=== PATIENT | male | born 1950 | race Caucasian/White ===

== ENCOUNTER → 2016-06-06 | Outpatient (CLI) | payer MEDICARE ==
[~2016-06-06] MED LIST: CARV25TA PO; DIGO0.1262 PO; FURO20TA PO; LOS50T PO; NITR0.2D12 TD; SPIR25TA89 PO
[2016-06-06 10:23] LABS: Basophils # (auto) 0 uL; Basophils % (auto) 0.4 % (0.0-2.0); Eosinophils # (auto) 0.1 uL; Eosinophils % (auto) 1.9 % (0.0-7.0); Hematocrit 44.2 % (41.0-53.0); Hemoglobin 14.5 g/dL (13.5-17.5); Lymphocytes # (auto) 1.5 uL; Lymphocytes % (auto) 28.6 % (10.0-50.0); Mean Corpuscular Hemoglobin 30.1 pg (28.0-32.0); Mean Corpuscular Hgb Conc. 32.8 g/dL (32.0-36.0); Mean Corpuscular Volume 91.9 fL (80.0-100.0); Mean Platelet Volume 8.8 fL (7.4-10.4); Monocytes # (auto) 0.5 uL; Monocytes % (auto) 8.6 % (0.0-12.0); Neutrophils # (auto) 3.3 uL; Neutrophils % (auto) 60.5 % (37.0-80.0); Platelet Count (auto) 194 10^3/uL (140-450); White Blood Cell 5.4 10^3/uL (4.4-10.8)
[2016-06-06 10:33] LABS: Urine Bilirubin Negative (Negative); Urine Blood Negative /uL (Negative); Urine Color Yellow (Yellow); Urine Glucose Normal (Normal); Urine Ketone Negative (Negative); Urine Nitrite Negative (Negative); Urine RBC <1 /hpf (0 - 3); Urine Urobilinogen Normal (Negative); Urine pH 5.5 (5.0-8.0)
[2016-06-06 10:46] LABS: Albumin 3.7 g/dL (3.4-5.0); BUN/Creatinine Ratio 16.3; Bilirubin, Total 0.6 mg/dL (0.2-1.0); Calcium 8.4 mg/dL (8.5-10.1); Potassium 4.2 mmol/L (3.5-5.1); Total Protein 7.2 g/dL (6.4-8.2)
== END | disposition home or self-care (01) ==
LOC: LAB 10:00
DX: I10 Essential (primary) hypertension (principal); E55.9 Vitamin D deficiency, unspecified
CPT/HCPCS: 36415; 80053; 80061; 81001; 82306; 84443; 85025

== ENCOUNTER → 2016-10-13 | Outpatient (CLI) | payer MEDICARE ==
[2016-10-13 11:07] LABS: Urine RBC None Seen /hpf (0 - 3)
[2016-10-13 11:13] LABS: Basophils # (auto) 0 uL; Basophils % (auto) 0.5 % (0.0-2.0); Eosinophils # (auto) 0.1 uL; Eosinophils % (auto) 0.9 % (0.0-7.0); Hematocrit 44.9 % (41.0-53.0); Hemoglobin 15.1 g/dL (13.5-17.5); Lymphocytes # (auto) 1.2 uL; Lymphocytes % (auto) 18.5 % (10.0-50.0); Mean Corpuscular Hemoglobin 31.2 pg (28.0-32.0); Mean Corpuscular Hgb Conc. 33.5 g/dL (32.0-36.0); Mean Corpuscular Volume 92.9 fL (80.0-100.0); Mean Platelet Volume 8.2 fL (7.4-10.4); Monocytes # (auto) 0.3 uL; Monocytes % (auto) 5.2 % (0.0-12.0); Neutrophils # (auto) 4.7 uL; Neutrophils % (auto) 74.9 % (37.0-80.0); Platelet Count (auto) 237 10^3/uL (140-450); Red Cell Distribution Width 13.9 % (11.6-16.0); White Blood Cell 6.3 10^3/uL (4.4-10.8)
[2016-10-13 11:42] LABS: Albumin 3.9 g/dL (3.4-5.0); BUN/Creatinine Ratio 13.9; Bilirubin, Total 0.6 mg/dL (0.2-1.0); Calcium 8.6 mg/dL (8.5-10.1); Potassium 4.2 mmol/L (3.5-5.1); Total Protein 7.9 g/dL (6.4-8.2)
[2016-10-13 12:02] LABS: Urine Bilirubin Negative (Negative); Urine Blood Negative /uL (Negative); Urine Color Yellow (Yellow); Urine Glucose Normal (Normal); Urine Ketone Negative (Negative); Urine Nitrite Negative (Negative); Urine Urobilinogen Normal (Negative); Urine pH 5.5 (5.0-8.0)
== END | disposition home or self-care (01) ==
LOC: LAB 10:49
DX: I10 Essential (primary) hypertension (principal); E55.9 Vitamin D deficiency, unspecified; Z12.5 Encounter for screening for malignant neoplasm of prostate; Z12.11 Encounter for screening for malignant neoplasm of colon
CPT/HCPCS: 36415; 80053; 80061; 81001; 82270; 82306; 84153; 84443; 85025

== ENCOUNTER → 2016-12-27 | Outpatient (CLI) | payer MEDICARE | END | disposition home or self-care (01) | LOC: XYW 11:03 | PROVIDERS: ATTEND Internal Medicine Cardiovascular Disease | DX: I42.9 Cardiomyopathy, unspecified (principal); I25.5 Ischemic cardiomyopathy; I08.0 Rheumatic disorders of both mitral and aortic valves | CPT/HCPCS: 93306 ==

== ENCOUNTER → 2017-02-09 | Outpatient (CLI) | payer MEDICARE ==
[2017-02-09 09:26] LABS: Urine RBC None Seen /hpf (0 - 3)
[2017-02-09 10:07] LABS: Basophils # (auto) 0 uL; Basophils % (auto) 0.5 % (0.0-2.0); Eosinophils # (auto) 0.1 uL; Eosinophils % (auto) 1.1 % (0.0-7.0); Hematocrit 44.5 % (41.0-53.0); Hemoglobin 14.9 g/dL (13.5-17.5); Lymphocytes # (auto) 1.2 uL; Lymphocytes % (auto) 22.8 % (10.0-50.0); Mean Corpuscular Hemoglobin 31.7 pg (28.0-32.0); Mean Corpuscular Hgb Conc. 33.6 g/dL (32.0-36.0); Mean Corpuscular Volume 94.6 fL (80.0-100.0); Mean Platelet Volume 8.7 fL (6.9-10.8); Monocytes # (auto) 0.5 uL; Monocytes % (auto) 8.6 % (0.0-12.0); Neutrophils # (auto) 3.5 uL; Platelet Count (auto) 179 10^3/uL (140-450); Red Cell Distribution Width 14.2 % (11.8-14.3); White Blood Cell 5.3 10^3/uL (4.4-10.8)
[2017-02-09 10:09] LABS: Urine Bilirubin Negative (Negative); Urine Blood Negative /uL (Negative); Urine Color Yellow (Yellow); Urine Glucose Normal (Normal); Urine Ketone Negative (Negative); Urine Nitrite Negative (Negative); Urine Urobilinogen Normal (Negative); Urine pH 5.5 (5.0-8.0)
[2017-02-09 10:24] LABS: BUN/Creatinine Ratio 15.8; Bilirubin, Total 0.8 mg/dL (0.2-1.0); Calcium 8.8 mg/dL (8.5-10.1)
== END | disposition home or self-care (01) ==
LOC: LAB 09:22
PROVIDERS: ATTEND Family Medicine
DX: I11.0 Hypertensive heart disease with heart failure (principal); I50.22 Chronic systolic (congestive) heart failure; I25.10 Atherosclerotic heart disease of native coronary artery without angina pectoris
CPT/HCPCS: 36415; 80053; 80061; 81001; 84443; 85025

== ENCOUNTER → 2018-03-12 | Outpatient (CLI) | payer MEDICARE ==
[~2018-03-12] MED LIST changes: +SPIR25TA8 PO; -SPIR25TA89 PO
[2018-03-12 10:48] LABS: Urine WBC None Seen /hpf (0 - 3)
[2018-03-12 11:27] LABS: Urine Bacteria NONE SEEN /hpf (None Seen); Urine Blood Negative /uL (Negative)
[2018-03-12 11:49] LABS: Basophils # (auto) 0 uL; Basophils % (auto) 0.5 % (0.0-2.0); Eosinophils # (auto) 0.1 uL; Hematocrit 44.8 % (41.0-53.0); Hemoglobin 15.8 g/dL (13.5-17.5); Lymphocytes # (auto) 1.3 uL; Lymphocytes % (auto) 19.7 % (10.0-50.0); Mean Corpuscular Hemoglobin 33.2 pg (28.0-32.0); Mean Corpuscular Hgb Conc. 35.3 g/dL (32.0-36.0); Monocytes # (auto) 0.5 uL; Monocytes % (auto) 8.3 % (0.0-12.0); Neutrophils # (auto) 4.4 uL; Neutrophils % (auto) 69.5 % (37.0-80.0); Nucleated Red Blood Cells % 0.1 %; Platelet Count (auto) 175 10^3/uL (140-450); Red Blood Cells 4.77 10^6/uL (4.5-5.90); Red Cell Distribution Width 14.2 % (11.8-14.3); White Blood Cell 6.4 10^3/uL (4.4-10.8)
[2018-03-12 11:59] LABS: Albumin 3.9 g/dL (3.4-5.0); Potassium 5.2 mmol/L (3.5-5.1)
[2018-03-12 12:05] LABS: BUN/Creatinine Ratio 15.9; Bilirubin, Total 0.8 mg/dL (0.2-1.0); Total Protein 7.9 g/dL (6.4-8.2)
== END | disposition home or self-care (01) ==
LOC: LAB 09:59
DX: I10 Essential (primary) hypertension (principal); I25.5 Ischemic cardiomyopathy; I25.2 Old myocardial infarction; E78.2 Mixed hyperlipidemia; Z79.899 Other long term (current) drug therapy
CPT/HCPCS: 36415; 80053; 80061; 81001; 82306; 84153; 85025

== ENCOUNTER → 2018-07-16 | Outpatient (CLI) | payer MEDICARE ==
[2018-07-16 11:05] LABS: Basophils # (auto) 0 uL; Basophils % (auto) 0.3 % (0.0-2.0); Eosinophils # (auto) 0.1 uL; Lymphocytes # (auto) 1.1 uL; Lymphocytes % (auto) 18.9 % (10.0-50.0); Mean Corpuscular Hemoglobin 31.3 pg (28.0-32.0); Mean Corpuscular Hgb Conc. 33.3 g/dL (32.0-36.0); Monocytes # (auto) 0.5 uL; Monocytes % (auto) 7.8 % (0.0-12.0); Neutrophils # (auto) 4.2 uL; Nucleated Red Blood Cells % 0.1 %; Platelet Count (auto) 167 10^3/uL (140-450); Red Blood Cells 4.79 10^6/uL (4.5-5.90); White Blood Cell 5.8 10^3/uL (4.4-10.8)
[2018-07-16 11:24] LABS: Albumin 3.6 g/dL (3.4-5.0); Calcium 8.6 mg/dL (8.5-10.1); Potassium 4.5 mmol/L (3.5-5.1)
[2018-07-16 11:30] LABS: BUN/Creatinine Ratio 12.1; Bilirubin, Total 0.7 mg/dL (0.2-1.0); Total Protein 7.1 g/dL (6.4-8.2)
== END | disposition home or self-care (01) ==
LOC: LAB 10:23
PROVIDERS: ATTEND Nurse Practitioner
DX: E78.5 Hyperlipidemia, unspecified (principal)
CPT/HCPCS: 36415; 80053; 80061; 85025

== ENCOUNTER → 2018-11-01 | Outpatient (CLI) | payer MEDICARE ==
[2018-11-01 08:56] LABS: Basophils # (auto) 0 uL; Basophils % (auto) 0.5 % (0.0-2.0); Eosinophils # (auto) 0.1 uL; Eosinophils % (auto) 1.7 % (0.0-7.0); Hematocrit 44.8 % (41.0-53.0); Hemoglobin 15.3 g/dL (13.5-17.5); Lymphocytes # (auto) 1.5 uL; Lymphocytes % (auto) 22.6 % (10.0-50.0); Mean Corpuscular Hgb Conc. 34.2 g/dL (32.0-36.0); Mean Corpuscular Volume 93.5 fL (80.0-100.0); Monocytes # (auto) 0.6 uL; Monocytes % (auto) 8.5 % (0.0-12.0); Neutrophils # (auto) 4.3 uL; Neutrophils % (auto) 66.7 % (37.0-80.0); Nucleated Red Blood Cells % 0.1 %; Platelet Count (auto) 172 10^3/uL (140-450); Red Blood Cells 4.79 10^6/uL (4.5-5.90); Red Cell Distribution Width 13.8 % (11.8-14.3); White Blood Cell 6.5 10^3/uL (4.4-10.8)
[2018-11-01 08:57] LABS: Albumin 3.6 g/dL (3.4-5.0); Calcium 8.7 mg/dL (8.5-10.1); Potassium 4.5 mmol/L (3.5-5.1)
[2018-11-01 08:59] LABS: BUN/Creatinine Ratio 15.5; Bilirubin, Total 0.6 mg/dL (0.2-1.0); Total Protein 7.1 g/dL (6.4-8.2); Urine Bacteria NONE SEEN /hpf (None Seen); Urine Blood Negative /uL (Negative); Urine Specific Gravity 1.022 (1.001-1.035); Urine WBC 1 /hpf (0 - 3)
== END | disposition home or self-care (01) ==
LOC: LAB 08:05
PROVIDERS: ATTEND Nurse Practitioner
DX: R73.9 Hyperglycemia, unspecified (principal)
CPT/HCPCS: 36415; 80053; 81001; 82043; 83036; 85025

== ENCOUNTER → 2019-01-24 | Outpatient (CLI) | payer MEDICARE ==
[~2019-01-24] MED LIST changes: +FURO1TAB33 PO; -FURO20TA PO; -NITR0.2D12 TD; +NITR0.2D3 TD
[2019-01-24 08:51] LABS: Urine WBC None Seen /hpf (0 - 3)
[2019-01-24 08:59] LABS: Basophils # (auto) 0 uL; Basophils % (auto) 0.4 % (0.0-2.0); Eosinophils # (auto) 0 uL; Eosinophils % (auto) 0.9 % (0.0-7.0); Hematocrit 42.7 % (41.0-53.0); Hemoglobin 14.5 g/dL (13.5-17.5); Lymphocytes % (auto) 22.6 % (10.0-50.0); Mean Corpuscular Hemoglobin 32.1 pg (28.0-32.0); Mean Corpuscular Volume 94.3 fL (80.0-100.0); Monocytes # (auto) 0.3 uL; Monocytes % (auto) 8.1 % (0.0-12.0); Neutrophils # (auto) 2.9 uL; Platelet Count (auto) 164 10^3/uL (140-450); Red Blood Cells 4.53 10^6/uL (4.5-5.90); Red Cell Distribution Width 14.1 % (11.8-14.3); White Blood Cell 4.2 10^3/uL (4.4-10.8)
[2019-01-24 09:01] LABS: Urine Bacteria NONE SEEN /hpf (None Seen); Urine Blood Negative /uL (Negative)
[2019-01-24 10:23] LABS: Albumin 3.8 g/dL (3.4-5.0); Bilirubin, Total 0.8 mg/dL (0.2-1.0); Calcium 8.6 mg/dL (8.5-10.1); Potassium 4.5 mmol/L (3.5-5.1); Total Protein 7.1 g/dL (6.4-8.2)
== END | disposition home or self-care (01) ==
LOC: LAB 08:23
PROVIDERS: ATTEND Nurse Practitioner
DX: E78.5 Hyperlipidemia, unspecified (principal); E11.9 Type 2 diabetes mellitus without complications; I11.0 Hypertensive heart disease with heart failure; I50.9 Heart failure, unspecified
CPT/HCPCS: 36415; 80053; 80061; 81001; 82043; 83036; 85025

== ENCOUNTER → 2019-05-10 | Outpatient (CLI) | payer MEDICARE ==
[2019-05-10 11:18] LABS: Albumin 3.7 g/dL (3.4-5.0); Calcium 8.8 mg/dL (8.5-10.1); Potassium 4.9 mmol/L (3.5-5.1)
[2019-05-10 11:22] LABS: BUN/Creatinine Ratio 15.4; Bilirubin, Total 0.6 mg/dL (0.2-1.0); Total Protein 7.2 g/dL (6.4-8.2)
== END | disposition home or self-care (01) ==
LOC: LAB 10:30
PROVIDERS: ATTEND Nurse Practitioner
DX: E11.22 Type 2 diabetes mellitus with diabetic chronic kidney disease (principal); N18.9 Chronic kidney disease, unspecified
CPT/HCPCS: 36415; 80053; 83036

== ENCOUNTER → 2019-07-29 | Outpatient (CLI) | payer MEDICARE ==
[2019-07-29 12:39] LABS: Urine WBC None Seen /hpf (0 - 3)
[2019-07-29 12:52] LABS: Basophils # (auto) 0 10 ^3/uL (0-0.2); Basophils % (auto) 0.4 % (0.0-2.0); Eosinophils # (auto) 0.1 10 ^3/uL (0-0.8); Eosinophils % (auto) 1.3 % (0.0-7.0); Hematocrit 45.8 % (41.0-53.0); Hemoglobin 15.5 g/dL (13.5-17.5); Lymphocytes % (auto) 23.8 % (10.0-50.0); Mean Corpuscular Hemoglobin 32.5 pg (28.0-32.0); Mean Corpuscular Hgb Conc. 33.9 g/dL (32.0-36.0); Mean Corpuscular Volume 95.8 fL (80.0-100.0); Monocytes # (auto) 0.3 10 ^3/uL (0-1.3); Monocytes % (auto) 8.2 % (0.0-12.0); Neutrophils # (auto) 2.7 10 ^3/uL (1.6-8.6); Neutrophils % (auto) 66.3 % (37.0-80.0); Platelet Count (auto) 154 10^3/uL (140-450); Red Blood Cells 4.78 10^6/uL (4.5-5.90); Red Cell Distribution Width 13.9 % (11.8-14.3)
[2019-07-29 12:58] LABS: Urine Bacteria NONE SEEN /hpf (None Seen); Urine Blood Negative /uL (Negative); Urine Specific Gravity 1.017 (1.001-1.035)
[2019-07-29 13:20] LABS: Albumin 3.7 g/dL (3.4-5.0); Calcium 9.2 mg/dL (8.5-10.1); Potassium 4.6 mmol/L (3.5-5.1)
[2019-07-29 13:25] LABS: BUN/Creatinine Ratio 16.9; Bilirubin, Total 0.8 mg/dL (0.2-1.0); Total Protein 7.4 g/dL (6.4-8.2)
== END | disposition home or self-care (01) ==
LOC: LAB 10:42
PROVIDERS: ATTEND Nurse Practitioner
DX: E11.9 Type 2 diabetes mellitus without complications (principal); E78.5 Hyperlipidemia, unspecified
CPT/HCPCS: 36415; 80053; 80061; 81001; 82043; 83036; 84443; 85025

== ENCOUNTER 2019-08-09 13:54 | Inpatient (IN) | payer MEDICARE ==
[~2019-08-09] VITALS: Ht 172.7 cm; Wt 71.6 kg
[2019-08-09] MEDS ORDERED: ASPirin 81 mg TAB PO ONE (14:15)
[2019-08-09] MEDS ORDERED: NITROGLYCERIN 0.2MG/HR TOPICAL PATCH TD ONE ×2 (14:15→16:45)
[2019-08-09 14:30] LABS: Basophils # (auto) 0 10 ^3/uL (0-0.2); Basophils % (auto) 0.3 % (0.0-2.0); Eosinophils # (auto) 0 10 ^3/uL (0-0.8); Eosinophils % (auto) 0.5 % (0.0-7.0); Hematocrit 47.2 % (41.0-53.0); Lymphocytes % (auto) 19.5 % (10.0-50.0); Mean Corpuscular Hemoglobin 32.4 pg (28.0-32.0); Mean Corpuscular Hgb Conc. 33.9 g/dL (32.0-36.0); Mean Corpuscular Volume 95.5 fL (80.0-100.0); Monocytes # (auto) 0.4 10 ^3/uL (0-1.3); Monocytes % (auto) 7.8 % (0.0-12.0); Neutrophils # (auto) 3.7 10 ^3/uL (1.6-8.6); Neutrophils % (auto) 71.9 % (37.0-80.0); Platelet Count (auto) 160 10^3/uL (140-450); Red Blood Cells 4.94 10^6/uL (4.5-5.90); Red Cell Distribution Width 14.1 % (11.8-14.3); White Blood Cell 5.2 10^3/uL (4.4-10.8)
[2019-08-09 14:49] LABS: Alanine Aminotransferase 62 U/L (16-61); Albumin 3.6 g/dL (3.4-5.0); Anion Gap 4 (5-15); Aspartate Aminotransferase 26 U/L (15-37); BUN/Creatinine Ratio 16.7; Blood Urea Nitrogen 23 mg/dL (7-18); Calcium 8.8 mg/dL (8.5-10.1); Carbon Dioxide 28 mmol/L (21-32); Chloride 107 mmol/L (98-107); GFR African American 65 mL/min; GFR Non-African American 54 mL/min; Glucose 125 mg/dL (74-106); Magnesium 2.2 mg/dL (1.6-2.6); Sodium 139 mmol/L (136-145)
[2019-08-09 14:54] LABS: Alkaline Phosphatase 80 U/L (45-117); Bilirubin, Total 0.6 mg/dL (0.2-1.0); Total Protein 7.4 g/dL (6.4-8.2)
[2019-08-09 14:56] LABS: INR 1.06 (0.9-1.15); Partial Thromboplastin Time 28.2 sec (23.64-32.05)
[2019-08-09] MEDS ORDERED: SODIUM CHLORIDE 0.9% 1,000 ML IV SCH (16:27)
[2019-08-09] MEDS ORDERED: TEMAZEPAM 15 MG CAP PO PRN (16:30)
[2019-08-09] MEDS ORDERED: traMADol HCL 50 MG TAB PO PRN (16:30)
[2019-08-09] MEDS ORDERED: MORPHINE SULF INJ 2 MG/ML SYRINGE 1ML IV PRN (16:30)
[2019-08-09] MEDS ORDERED: ACETAMINOPHEN 500 MG TAB PO PRN ×2 (16:30)
[2019-08-09] MEDS ORDERED: LACTULOSE 20Gm/30ML SOLN PO PRN (16:30)
[2019-08-09] MEDS ORDERED: NITROGLYCERIN 0.4 MG SL TAB SL PRN (16:30)
[2019-08-09 18:14] VITALS: BP 155/72
[2019-08-09 22:00] VITALS: BP 151/65
[2019-08-09] MEDS ORDERED: CARVEDILOL 12.5 MG TAB PO SCH (22:00)
[2019-08-09] MEDS ORDERED: SPIRONOLACTONE 25 MG TAB PO SCH (22:00)
[2019-08-09] MEDS ORDERED: LOSARTAN POTASSIUM 50 MG TAB PO SCH (22:00)
[2019-08-09] MEDS ORDERED: ATORVASTATIN 20 MG TAB PO SCH (22:00)
[2019-08-09] MEDS ORDERED: METOPROLOL TARTRATE 25 MG TAB PO SCH (22:00)
[2019-08-09] MEDS: SPIRONOLACTONE 25 MG TAB PO SCH (23:10)
[2019-08-09] MEDS: CARVEDILOL 12.5 MG TAB PO SCH (23:10)
[2019-08-09] MEDS: ATORVASTATIN 20 MG TAB PO SCH (23:11)
[2019-08-09] MEDS: LOSARTAN POTASSIUM 50 MG TAB PO SCH (23:11)
[2019-08-10 05:06] VITALS: BP 122/56
[2019-08-10 09:00] VITALS: BP 127/57
[2019-08-10] MEDS: CARVEDILOL 12.5 MG TAB PO SCH ×2 (10:00→21:52)
[2019-08-10] MEDS: LOSARTAN POTASSIUM 50 MG TAB PO SCH ×2 (10:00→21:52)
[2019-08-10] MEDS: DIGOXIN 0.125 MG TAB PO SCH (10:34)
[2019-08-10] MEDS: SPIRONOLACTONE 25 MG TAB PO SCH ×2 (10:36→21:51)
[2019-08-10] MEDS: NITROGLYCERIN 0.2MG/HR TOPICAL PATCH TD SCH (10:38)
[2019-08-10] MEDS ORDERED: CLOPIDOGREL BISULFATE 75 MG TAB PO ONE (12:00)
[2019-08-10] MEDS: ASPirin 81 mg TAB PO SCH (12:23)
[2019-08-10 12:49] VITALS: BP 156/76
[2019-08-10 13:18] LABS: Cholesterol 111 mg/dL (< 200); Triglycerides 115 mg/dL (< 150)
[2019-08-10 13:21] LABS: HDL Cholesterol 42 mg/dL (40-59); LDL Cholesterol 58 mg/dL (< 100)
[2019-08-10 16:47] VITALS: BP 104/54
[2019-08-10 21:45] VITALS: BP 114/70
[2019-08-10] MEDS: ATORVASTATIN 20 MG TAB PO SCH (21:52)
[2019-08-11 05:06] VITALS: BP 116/59
[2019-08-11 09:25] VITALS: BP 127/66
[2019-08-11] MEDS: NITROGLYCERIN 0.2MG/HR TOPICAL PATCH TD SCH (09:55)
[2019-08-11] MEDS: SPIRONOLACTONE 25 MG TAB PO SCH ×2 (09:56→21:55)
[2019-08-11] MEDS: ASPirin 81 mg TAB PO SCH (09:56)
[2019-08-11] MEDS: CLOPIDOGREL BISULFATE 75 MG TAB PO SCH (09:56)
[2019-08-11] MEDS: CARVEDILOL 12.5 MG TAB PO SCH ×2 (09:57→21:56)
[2019-08-11] MEDS: DIGOXIN 0.125 MG TAB PO SCH (09:57)
[2019-08-11] MEDS: LOSARTAN POTASSIUM 50 MG TAB PO SCH ×2 (09:57→21:56)
[2019-08-11 13:36] VITALS: BP 122/64
[2019-08-11 16:39] VITALS: BP 113/55
[2019-08-11] MEDS: ATORVASTATIN 20 MG TAB PO SCH (21:56)
[2019-08-11 22:00] VITALS: BP 103/62
[2019-08-12] VITALS (7 sets, daily range): BP systolic 103–138; BP diastolic 55–65
[2019-08-12] MEDS ORDERED: ADENOSINE 61 MG in GIVE UN-DILUTED 0 ML IV STA (08:23)
[2019-08-12] MEDS: ASPirin 81 mg TAB PO SCH (13:45)
[2019-08-12] MEDS: SPIRONOLACTONE 25 MG TAB PO SCH ×2 (13:45→22:00)
[2019-08-12] MEDS: CLOPIDOGREL BISULFATE 75 MG TAB PO SCH (13:45)
[2019-08-12] MEDS: CARVEDILOL 12.5 MG TAB PO SCH ×2 (13:46→22:00)
[2019-08-12] MEDS: LOSARTAN POTASSIUM 50 MG TAB PO SCH ×2 (13:47→22:28)
[2019-08-12] MEDS: DIGOXIN 0.125 MG TAB PO SCH (13:48)
[2019-08-12] MEDS: NITROGLYCERIN 0.2MG/HR TOPICAL PATCH TD SCH (13:48)
[2019-08-12] MEDS: ATORVASTATIN 20 MG TAB PO SCH (22:26)
[2019-08-13 05:00] VITALS: BP 111/42
[2019-08-13 08:00] VITALS: BP 123/67
[2019-08-13 09:00] VITALS: BP 123/67
[2019-08-13] MEDS: ASPirin 81 mg TAB PO SCH (09:56)
[2019-08-13] MEDS: LOSARTAN POTASSIUM 50 MG TAB PO SCH (09:56)
[2019-08-13] MEDS: CARVEDILOL 12.5 MG TAB PO SCH (09:57)
[2019-08-13] MEDS: CLOPIDOGREL BISULFATE 75 MG TAB PO SCH (09:57)
[2019-08-13] MEDS: NITROGLYCERIN 0.2MG/HR TOPICAL PATCH TD SCH (09:58)
[2019-08-13 11:35] VITALS: BP 123/67
[2019-08-13 12:58] VITALS: BP 117/66
== END 2019-08-13 14:19 | disposition home or self-care (01) | DRG 313 ==
LOC: ER 13:54 → TELE 13:55 → ER 17:46 → TELE-CENTR 17:56
PROVIDERS: ADMIT Internal Medicine; ATTEND Family Medicine
DX: R07.89 Other chest pain (principal); I50.23 Acute on chronic systolic (congestive) heart failure; I11.0 Hypertensive heart disease with heart failure; I20.9 Angina pectoris, unspecified; Z95.5 Presence of coronary angioplasty implant and graft; Z88.1 Allergy status to other antibiotic agents; Z88.8 Allergy status to other drugs, medicaments and biological substances; Z82.49 Family history of ischemic heart disease and other diseases of the circulatory system; Z83.3 Family history of diabetes mellitus; N18.3 Chronic kidney disease, stage 3 (moderate)
CPT/HCPCS: 36415; 71045; 78452; 80053; 80061; 82550; 83735; 83880; 84443; 84484; 85025; 85610; 85730; 93005; 93017; 93306; G0378; J0153

== ENCOUNTER → 2019-12-25 | Outpatient (CLI) | payer MEDICARE ==
[~2019-12-25] MED LIST changes: +AMLO5TAB15 PO; +ASPI81CH43 PO; +ATOR20TA50 PO; +CAR125T PO; +CLOP75TA41 PO; +SERT-274 PO; +TRAZ50TA2 PO
== END | disposition home or self-care (01) ==
LOC: XYW 07:33
PROVIDERS: ATTEND Internal Medicine
DX: I08.2 Rheumatic disorders of both aortic and tricuspid valves (principal); I10 Essential (primary) hypertension
CPT/HCPCS: 36415; 80162; 93306

== ENCOUNTER → 2020-02-07 | Outpatient (CLI) | payer MEDICARE ==
[2020-02-07 09:20] LABS: Basophils # (auto) 0 10 ^3/uL (0-0.2); Basophils % (auto) 0.6 % (0.0-2.0); Eosinophils # (auto) 0.1 10 ^3/uL (0-0.8); Eosinophils % (auto) 1.4 % (0.0-7.0); Hematocrit 45.2 % (41.0-53.0); Hemoglobin 15.3 g/dL (13.5-17.5); Lymphocytes # (auto) 1.1 10 ^3/uL (0.4-5.4); Lymphocytes % (auto) 23.2 % (10.0-50.0); Mean Corpuscular Hemoglobin 32.5 pg (28.0-32.0); Mean Corpuscular Hgb Conc. 33.7 g/dL (32.0-36.0); Mean Corpuscular Volume 96.4 fL (80.0-100.0); Monocytes # (auto) 0.4 10 ^3/uL (0-1.3); Monocytes % (auto) 8.3 % (0.0-12.0); Neutrophils # (auto) 3.1 10 ^3/uL (1.6-8.6); Neutrophils % (auto) 66.5 % (37.0-80.0); Nucleated Red Blood Cells % 0.1 %; Platelet Count (auto) 157 10^3/uL (140-450); Red Blood Cells 4.69 10^6/uL (4.5-5.90); Red Cell Distribution Width 13.7 % (11.8-14.3); White Blood Cell 4.6 10^3/uL (4.4-10.8)
[2020-02-07 09:27] LABS: Albumin 3.7 g/dL (3.4-5.0); Calcium 9.1 mg/dL (8.5-10.1); Potassium 4.8 mmol/L (3.5-5.1)
[2020-02-07 09:31] LABS: BUN/Creatinine Ratio 19.6; Bilirubin, Total 0.7 mg/dL (0.2-1.0); Total Protein 7.1 g/dL (6.4-8.2)
[2020-02-07 09:42] LABS: INR 1.05 (0.9-1.15); Partial Thromboplastin Time 27.1 sec (23.0-31.2)
== END | disposition home or self-care (01) ==
LOC: LAB 08:52
PROVIDERS: ATTEND Internal Medicine
DX: Z01.812 Encounter for preprocedural laboratory examination (principal); I12.9 Hypertensive chronic kidney disease with stage 1 through stage 4 chronic kidney disease, or unspecified chronic kidney disease; E11.22 Type 2 diabetes mellitus with diabetic chronic kidney disease; N18.9 Chronic kidney disease, unspecified
CPT/HCPCS: 36415; 80053; 85025; 85610; 85730

== ENCOUNTER 2020-02-12 07:00 | Day surgery (SDC) | payer MEDICARE ==
[~2020-02-12] VITALS: Ht 175.3 cm; Wt 68.5 kg
[~2020-02-12 07:00] MED LIST changes: -CARV25TA PO; -FURO1TAB33 PO; -NITR0.2D3 TD
[2020-02-12] MEDS ORDERED: IOHEXOL 350 MG/ML 100ML IJ ONE (07:51)
[2020-02-12] MEDS ORDERED: LIDOCAINE 2%HCL (LOCAL ANESTH.) INJ 20ML MDV ONE (07:51)
[2020-02-12] MEDS ORDERED: MIDAZOLAM HCL 1MG/1ML-2 ML VIAL ONE (09:13)
[2020-02-12] MEDS ORDERED: ANGIOMAX 250 MG VIAL IV ONE (09:13)
[2020-02-12] MEDS ORDERED: fentaNYL CITRATE 100 MCG/2 ML VL ONE (09:13)
[2020-02-12] MEDS ORDERED: SODIUM CHL 0.9% 0 ML ONE (09:13)
[2020-02-12] MEDS ORDERED: ONDANSETRON HCL 4 MG/2 ML VIAL IV PRN (10:30)
[2020-02-12] MEDS ORDERED: HYDROcodone-ACET 5/325MG TAB PO PRN (10:30)
[2020-02-12] MEDS ORDERED: ACETAMINOPHEN 500 MG TAB PO PRN (10:30)
== END 2020-02-12 12:48 | disposition home or self-care (01) ==
LOC: CATH 07:00
PROVIDERS: ATTEND Internal Medicine
DX: I25.10 Atherosclerotic heart disease of native coronary artery without angina pectoris (principal); I42.9 Cardiomyopathy, unspecified; I35.1 Nonrheumatic aortic (valve) insufficiency; E78.5 Hyperlipidemia, unspecified; I11.0 Hypertensive heart disease with heart failure; E78.00 Pure hypercholesterolemia, unspecified; Z20.828 Contact with and (suspected) exposure to other viral communicable diseases; Z95.5 Presence of coronary angioplasty implant and graft; Z79.82 Long term (current) use of aspirin; Z79.899 Other long term (current) drug therapy; Z98.890 Other specified postprocedural states; Z88.1 Allergy status to other antibiotic agents; Z88.8 Allergy status to other drugs, medicaments and biological substances
CPT/HCPCS: 93460; C1751; C1769; C1894; J1644; J2250; J3010; J7030; Q9967; U0003; 99152

== ENCOUNTER → 2020-02-17 | Outpatient (CLI) | payer MEDICARE ==
[2020-02-17 09:47] LABS: Basophils # (auto) 0 10 ^3/uL (0-0.2); Basophils % (auto) 0.5 % (0.0-2.0); Eosinophils # (auto) 0.1 10 ^3/uL (0-0.8); Eosinophils % (auto) 1.3 % (0.0-7.0); Hematocrit 47.5 % (41.0-53.0); Hemoglobin 15.9 g/dL (13.5-17.5); Lymphocytes # (auto) 1.3 10 ^3/uL (0.4-5.4); Lymphocytes % (auto) 18.8 % (10.0-50.0); Mean Corpuscular Hemoglobin 32.3 pg (28.0-32.0); Mean Corpuscular Hgb Conc. 33.4 g/dL (32.0-36.0); Mean Corpuscular Volume 96.7 fL (80.0-100.0); Monocytes # (auto) 0.5 10 ^3/uL (0-1.3); Monocytes % (auto) 8.1 % (0.0-12.0); Neutrophils # (auto) 4.8 10 ^3/uL (1.6-8.6); Neutrophils % (auto) 71.3 % (37.0-80.0); Nucleated Red Blood Cells % 0.7 %; Platelet Count (auto) 190 10^3/uL (140-450); Red Blood Cells 4.92 10^6/uL (4.5-5.90); Red Cell Distribution Width 13.7 % (11.8-14.3); White Blood Cell 6.7 10^3/uL (4.4-10.8)
[2020-02-17 09:49] LABS: Urine Bacteria NONE SEEN /hpf (None Seen); Urine Blood Negative /uL (Negative); Urine Specific Gravity 1.009 (1.001-1.035); Urine WBC <1 /hpf (0 - 3)
[2020-02-17 10:29] LABS: BUN/Creatinine Ratio 19.9; Bilirubin, Total 0.7 mg/dL (0.2-1.0); Calcium 9.5 mg/dL (8.5-10.1); Total Protein 8.1 g/dL (6.4-8.2)
== END | disposition home or self-care (01) ==
LOC: LAB 08:49
PROVIDERS: ATTEND Internal Medicine
DX: I48.91 Unspecified atrial fibrillation (principal); I25.10 Atherosclerotic heart disease of native coronary artery without angina pectoris; I10 Essential (primary) hypertension; Z00.00 Encounter for general adult medical examination without abnormal findings; Z79.899 Other long term (current) drug therapy
CPT/HCPCS: 36415; 80053; 80061; 81001; 82274; 82306; 82607; 83036; 84443; 85025

== ENCOUNTER → 2020-05-08 | Outpatient (CLI) | payer MEDICARE ==
[2020-05-08 15:44] LABS: Urine Bacteria NONE SEEN /hpf (None Seen); Urine Blood Negative /uL (Negative); Urine Specific Gravity 1.008 (1.001-1.035); Urine WBC 1 /hpf (0 - 3)
[2020-05-08 15:58] LABS: BUN/Creatinine Ratio 15.7; Calcium 8.3 mg/dL (8.5-10.1); Potassium 4.2 mmol/L (3.5-5.1)
[2020-05-08 16:04] LABS: Sodium Urine 51 mmol/L (40-220)
[2020-05-08 16:16] LABS: Creatinine, Urine 67 mg/dL (30.0-125.0); Micro Albumin < 5.00 mg/L (0-30.0)
== END | disposition home or self-care (01) ==
LOC: LAB 15:18
PROVIDERS: ATTEND Internal Medicine
DX: N18.2 Chronic kidney disease, stage 2 (mild) (principal)
CPT/HCPCS: 36415; 80048; 81001; 82043; 82570; 84300

== ENCOUNTER → 2020-10-19 | Outpatient (CLI) | payer MEDICARE ==
[~2020-10-19] MED LIST changes: +AMLO-489 PO; -AMLO5TAB15 PO; -CLOP75TA41 PO; +CLOP75TA70 PO; -SERT-274 PO; +SERT50TA19 PO
[2020-10-19 11:28] LABS: Calcium 8.5 mg/dL (8.5-10.1); Potassium 4.7 mmol/L (3.5-5.1)
[2020-10-19 11:33] LABS: BUN/Creatinine Ratio 18.9
== END | disposition home or self-care (01) ==
LOC: LAB 10:19
PROVIDERS: ATTEND Internal Medicine
DX: N18.2 Chronic kidney disease, stage 2 (mild) (principal); E78.5 Hyperlipidemia, unspecified
CPT/HCPCS: 36415; 80048; 80061

== ENCOUNTER → 2021-05-04 | Outpatient (CLI) | payer MEDICARE ==
[2021-05-04 10:37] LABS: Urine WBC None Seen /hpf (0 - 3)
[2021-05-04 10:52] LABS: Urine Bacteria NONE SEEN /hpf (None Seen); Urine Blood Negative /uL (Negative); Urine Specific Gravity 1.007 (1.001-1.035)
[2021-05-04 10:57] LABS: Basophils # (auto) 0 10 ^3/uL (0-0.2); Basophils % (auto) 0.6 % (0.0-2.0); Eosinophils # (auto) 0.1 10 ^3/uL (0-0.8); Eosinophils % (auto) 1.3 % (0.0-7.0); Hematocrit 46.7 % (41.0-53.0); Hemoglobin 15.3 g/dL (13.5-17.5); Lymphocytes % (auto) 19.7 % (10.0-50.0); Mean Corpuscular Hemoglobin 31.4 pg (28.0-32.0); Mean Corpuscular Hgb Conc. 32.7 g/dL (32.0-36.0); Monocytes # (auto) 0.4 10 ^3/uL (0-1.3); Monocytes % (auto) 8.2 % (0.0-12.0); Neutrophils # (auto) 3.5 10 ^3/uL (1.6-8.6); Neutrophils % (auto) 70.2 % (37.0-80.0); Red Blood Cells 4.87 10^6/uL (4.5-5.90); Red Cell Distribution Width 13.9 % (11.8-14.3)
[2021-05-04 11:16] LABS: Albumin 3.7 g/dL (3.4-5.0); Calcium 8.6 mg/dL (8.5-10.1); Potassium 4.1 mmol/L (3.5-5.1)
[2021-05-04 11:22] LABS: BUN/Creatinine Ratio 16.7; Bilirubin, Total 0.6 mg/dL (0.2-1.0); Total Protein 6.9 g/dL (6.4-8.2)
== END | disposition home or self-care (01) ==
LOC: LAB 10:27
PROVIDERS: ATTEND Internal Medicine
DX: E11.22 Type 2 diabetes mellitus with diabetic chronic kidney disease (principal); I42.8 Other cardiomyopathies; N18.2 Chronic kidney disease, stage 2 (mild); Z79.899 Other long term (current) drug therapy
CPT/HCPCS: 36415; 80053; 80061; 81001; 82043; 82274; 82306; 83036; 85025

== ENCOUNTER → 2021-09-23 | Outpatient (CLI) | payer MEDICARE, OTHER | END | disposition home or self-care (01) | LOC: XYW 12:53 | PROVIDERS: ATTEND Internal Medicine | DX: I08.8 Other rheumatic multiple valve diseases (principal); I10 Essential (primary) hypertension | CPT/HCPCS: 93306 ==

== ENCOUNTER → 2021-11-22 | Outpatient (CLI) | payer OTHER ==
[2021-11-22 09:32] LABS: Cholesterol 94 mg/dL (< 200); HDL Cholesterol 41 mg/dL (40-59); LDL Cholesterol 48 mg/dL (< 100); Triglycerides 92 mg/dL (< 150)
== END | disposition home or self-care (01) ==
LOC: LAB 08:41
PROVIDERS: ATTEND Internal Medicine
DX: E78.5 Hyperlipidemia, unspecified (principal)
CPT/HCPCS: 36415; 80061

== ENCOUNTER → 2021-12-03 | Outpatient (CLI) | payer OTHER ==
[~2021-12-03] MED LIST changes: +CYCL-837 PO
== END | disposition home or self-care (01) ==
LOC: LAB 11:00
PROVIDERS: ATTEND Family Medicine
DX: L82.1 Other seborrheic keratosis (principal)
CPT/HCPCS: 88302

== ENCOUNTER 2021-12-09 20:14 | Emergency (ER) | payer OTHER ==
[~2021-12-09 20:14] MED LIST changes: -CYCL-837 PO
[2021-12-09 22:38] VITALS: BP 147/72
[2021-12-09] MEDS ORDERED: ONDANSETRON ODT 4 MG TAB PO ONE (23:45)
[2021-12-09] MEDS ORDERED: HYDROcodone-ACET 7.5/325MG TAB PO ONE (23:45)
[2021-12-10] MEDS ORDERED: CYCL-837 PO
== END 2021-12-10 00:27 | disposition home or self-care (01) ==
LOC: ER 20:14
DX: S70.01XA Contusion of right hip, initial encounter (principal); S90.32XA Contusion of left foot, initial encounter; M25.511 Pain in right shoulder; R07.81 Pleurodynia; I11.0 Hypertensive heart disease with heart failure; I50.9 Heart failure, unspecified; Z86.73 Personal history of transient ischemic attack (TIA), and cerebral infarction without residual deficits; Z88.1 Allergy status to other antibiotic agents; W11.XXXA Fall on and from ladder, initial encounter; Y93.89 Activity, other specified; Y92.89 Other specified places as the place of occurrence of the external cause; Y99.8 Other external cause status
CPT/HCPCS: 71101; 73060; 73502; 73630; 99284; Q0162

== ENCOUNTER → 2022-03-08 | Outpatient (CLI) | payer OTHER | END | disposition home or self-care (01) | LOC: XYW 13:37 | PROVIDERS: ATTEND Internal Medicine | DX: I08.3 Combined rheumatic disorders of mitral, aortic and tricuspid valves (principal); I42.8 Other cardiomyopathies; I50.22 Chronic systolic (congestive) heart failure | CPT/HCPCS: 93306 ==

== ENCOUNTER → 2022-05-16 | Outpatient (CLI) | payer OTHER ==
[2022-05-16 11:14] LABS: Basophils # (auto) 0 10 ^3/uL (0-0.2); Basophils % (auto) 0.6 % (0.0-2.0); Eosinophils # (auto) 0.1 10 ^3/uL (0-0.8); Eosinophils % (auto) 1.5 % (0.0-7.0); Hematocrit 45.4 % (41.0-53.0); Hemoglobin 14.9 g/dL (13.5-17.5); Lymphocytes # (auto) 0.9 10 ^3/uL (0.4-5.4); Lymphocytes % (auto) 18.3 % (10.0-50.0); Mean Corpuscular Hgb Conc. 32.9 g/dL (32.0-36.0); Mean Corpuscular Volume 94.3 fL (80.0-100.0); Monocytes # (auto) 0.5 10 ^3/uL (0-1.3); Neutrophils # (auto) 3.5 10 ^3/uL (1.6-8.6); Neutrophils % (auto) 69.6 % (37.0-80.0); Red Blood Cells 4.81 10^6/uL (4.5-5.90); Red Cell Distribution Width 14.8 % (11.8-14.3)
[2022-05-16 11:19] LABS: Urine Bacteria NONE SEEN /hpf (None Seen); Urine Blood Negative /uL (Negative); Urine Specific Gravity 1.012 (1.001-1.035); Urine WBC <1 /hpf (0 - 3)
[2022-05-16 12:08] LABS: Albumin 3.7 g/dL (3.4-5.0); Calcium 9.1 mg/dL (8.5-10.1); Potassium 4.6 mmol/L (3.5-5.1)
[2022-05-16 12:12] LABS: Bilirubin, Total 0.7 mg/dL (0.2-1.0); Total Protein 7.4 g/dL (6.4-8.2)
[2022-05-16 12:23] LABS: Prostate Specific Antigen 1.9 ng/mL (0.0-4.0)
== END | disposition home or self-care (01) ==
LOC: LAB 10:40
PROVIDERS: ATTEND Internal Medicine
DX: I50.22 Chronic systolic (congestive) heart failure (principal); R73.9 Hyperglycemia, unspecified
CPT/HCPCS: 36415; 80053; 80061; 81001; 82306; 82607; 83036; 84153; 84443; 85025

== ENCOUNTER → 2022-05-17 | Outpatient (CLI) | payer OTHER | END | disposition home or self-care (01) | LOC: LAB 12:51 | PROVIDERS: ATTEND Internal Medicine | DX: I50.22 Chronic systolic (congestive) heart failure (principal); R73.9 Hyperglycemia, unspecified | CPT/HCPCS: 82274 ==

== ENCOUNTER → 2022-05-25 | Outpatient (CLI) | payer OTHER ==
[2022-05-25 11:27] LABS: Urine Bacteria NONE SEEN /hpf (None Seen); Urine Blood Negative /uL (Negative); Urine Specific Gravity 1.011 (1.001-1.035); Urine WBC <1 /hpf (0 - 3)
[2022-05-25 11:57] LABS: BUN/Creatinine Ratio 15.5; Potassium 4.5 mmol/L (3.5-5.1)
[2022-05-25 12:03] LABS: Sodium Urine 42 mmol/L (40-220)
[2022-05-25 12:24] LABS: Creatinine, Urine 76 mg/dL (30.0-125.0); Micro Albumin < 5.00 mg/L (0-30.0); Protein, Urine < 5 mg/dL (0.0-11.9)
[2022-05-25 12:25] LABS: INR 2.03 (0.9-1.15); Partial Thromboplastin Time 39.9 sec (24.6-33.4)
[2022-05-26 15:39] LABS: Creatinine Clearance, Urine 1.15 mL/min (75-115)
== END | disposition home or self-care (01) ==
LOC: LAB 10:42
PROVIDERS: ATTEND Internal Medicine
DX: E11.22 Type 2 diabetes mellitus with diabetic chronic kidney disease (principal); N18.9 Chronic kidney disease, unspecified
CPT/HCPCS: 36415; 80048; 81001; 82043; 82570; 82575; 83935; 84156; 84300; 85610; 85730

== ENCOUNTER → 2022-06-27 | Outpatient (CLI) | payer OTHER ==
[2022-06-27 13:36] LABS: BUN/Creatinine Ratio 15.5; Calcium 8.5 mg/dL (8.5-10.1); Potassium 4.5 mmol/L (3.5-5.1)
== END | disposition home or self-care (01) ==
LOC: LAB 12:53
PROVIDERS: ATTEND Internal Medicine
DX: I10 Essential (primary) hypertension (principal)
CPT/HCPCS: 36415; 80048

== ENCOUNTER → 2022-08-08 | Outpatient (CLI) | payer OTHER, MEDICARE ==
[2022-08-08 12:01] LABS: BUN/Creatinine Ratio 13.6; Calcium 8.6 mg/dL (8.5-10.1); Potassium 4.6 mmol/L (3.5-5.1)
== END | disposition home or self-care (01) ==
LOC: LAB 11:18
PROVIDERS: ATTEND Internal Medicine
DX: I10 Essential (primary) hypertension (principal)
CPT/HCPCS: 36415; 80048

== ENCOUNTER → 2022-09-05 | Outpatient (CLI) | payer OTHER, MEDICARE | END | disposition home or self-care (01) | LOC: LAB 13:43 | PROVIDERS: ATTEND Internal Medicine | DX: I50.22 Chronic systolic (congestive) heart failure (principal) | CPT/HCPCS: 83880 ==

== ENCOUNTER → 2022-09-19 | Outpatient (CLI) | payer OTHER, MEDICARE ==
[2022-09-19 09:26] LABS: Urine Bacteria NONE SEEN /hpf (None Seen); Urine Blood Negative /uL (Negative); Urine Specific Gravity 1.013 (1.001-1.035); Urine WBC <1 /hpf (0 - 3)
[2022-09-19 10:08] LABS: Albumin 3.5 g/dL (3.4-5.0); Calcium 9.1 mg/dL (8.5-10.1); Potassium 4.7 mmol/L (3.5-5.1)
[2022-09-19 10:13] LABS: BUN/Creatinine Ratio 15.7 (10.0-20.0); Bilirubin, Total 0.7 mg/dL (0.2-1.0); Total Protein 7.4 g/dL (6.4-8.2)
[2022-09-21 16:07] LABS: Creatinine Clearance, Urine 60.15 mL/min (75-115)
== END | disposition home or self-care (01) ==
LOC: LAB 08:59
PROVIDERS: ATTEND Internal Medicine
DX: I10 Essential (primary) hypertension (principal); N39.0 Urinary tract infection, site not specified; E55.9 Vitamin D deficiency, unspecified
CPT/HCPCS: 36415; 80053; 81001; 82043; 82306; 82575; 83036

== ENCOUNTER → 2023-01-10 | Outpatient (CLI) | payer OTHER, MEDICARE ==
[~2023-01-10] MED LIST changes: -AMLO-489 PO; +AMLO1TAB22 PO; +SERT-206 PO; -SERT50TA19 PO; +TRAZ-227 PO; -TRAZ50TA2 PO
== END | disposition home or self-care (01) ==
LOC: XYW 13:51
PROVIDERS: ATTEND Internal Medicine
DX: I08.2 Rheumatic disorders of both aortic and tricuspid valves (principal)
CPT/HCPCS: 93306

== ENCOUNTER → 2023-01-24 | Outpatient (CLI) | payer OTHER ==
[2023-01-24 10:18] LABS: Basophils # (auto) 0 10 ^3/uL (0-0.2); Basophils % (auto) 0.4 % (0.0-2.0); Eosinophils # (auto) 0.1 10 ^3/uL (0-0.8); Eosinophils % (auto) 1.2 % (0.0-7.0); Hematocrit 42.1 % (41.0-53.0); Hemoglobin 14.5 g/dL (13.5-17.5); Lymphocytes # (auto) 1.4 10 ^3/uL (0.4-5.4); Lymphocytes % (auto) 27.9 % (10.0-50.0); Mean Corpuscular Hemoglobin 32.4 pg (28.0-32.0); Mean Corpuscular Hgb Conc. 34.6 g/dL (32.0-36.0); Mean Corpuscular Volume 93.8 fL (80.0-100.0); Monocytes # (auto) 0.5 10 ^3/uL (0-1.3); Neutrophils # (auto) 3.1 10 ^3/uL (1.6-8.6); Neutrophils % (auto) 60.5 % (37.0-80.0); Red Blood Cells 4.48 10^6/uL (4.5-5.90); Red Cell Distribution Width 14.1 % (11.8-14.3); White Blood Cell 5.2 10^3/uL (4.4-10.8)
[2023-01-24 11:55] LABS: Anion Gap 6.1 (5-15); Calcium 9.5 mg/dL (8.5-10.1); Carbon Dioxide 24.9 mmol/L (20-30); Chloride 108 mmol/L (98-107); Potassium 4.5 mmol/L (3.5-5.1); Sodium 139 mmol/L (136-145)
[2023-01-24 12:01] LABS: BUN/Creatinine Ratio 17.4 (10.0-20.0); Blood Urea Nitrogen 30 mg/dL (9-23); Glucose 115 mg/dL (74-106)
== END | disposition home or self-care (01) ==
LOC: LAB 09:55
PROVIDERS: ATTEND Internal Medicine
DX: I10 Essential (primary) hypertension (principal)
CPT/HCPCS: 36415; 80048; 84439; 84443; 85025

== ENCOUNTER → 2023-03-10 | Outpatient (CLI) | payer OTHER ==
[2023-03-10 12:20] LABS: Basophils # (auto) 0 10 ^3/uL (0-0.2); Basophils % (auto) 0.4 % (0.0-2.0); Eosinophils # (auto) 0.1 10 ^3/uL (0-0.8); Eosinophils % (auto) 0.9 % (0.0-7.0); Hematocrit 44.1 % (41.0-53.0); Hemoglobin 14.8 g/dL (13.5-17.5); Lymphocytes # (auto) 1.4 10 ^3/uL (0.4-5.4); Lymphocytes % (auto) 24.6 % (10.0-50.0); Mean Corpuscular Hgb Conc. 33.5 g/dL (32.0-36.0); Mean Corpuscular Volume 92.5 fL (80.0-100.0); Monocytes # (auto) 0.5 10 ^3/uL (0-1.3); Monocytes % (auto) 9.3 % (0.0-12.0); Neutrophils # (auto) 3.6 10 ^3/uL (1.6-8.6); Neutrophils % (auto) 64.8 % (37.0-80.0); Nucleated Red Blood Cells % 0.1 %; Red Blood Cells 4.77 10^6/uL (4.5-5.90); Red Cell Distribution Width 13.8 % (11.8-14.3); White Blood Cell 5.5 10^3/uL (4.4-10.8)
[2023-03-10 12:42] LABS: Urine Bacteria NONE SEEN /hpf (None Seen); Urine Blood Negative /uL (Negative); Urine Clarity Clear (Clear); Urine Color Colorless (Yellow); Urine Protein, UAD Negative (Negative); Urine Specific Gravity 1.008 (1.001-1.035); Urine Urobilinogen Normal (Negative); Urine WBC <1 /hpf (0 - 3)
[2023-03-10 12:53] LABS: Potassium 4.6 mmol/L (3.5-5.1)
[2023-03-10 12:55] LABS: Calcium 9.3 mg/dL (8.7-10.4)
[2023-03-10 12:59] LABS: Uric Acid 6.7 mg/dL (3.7-9.2)
[2023-03-10 13:01] LABS: Albumin 4.5 g/dL (3.2-4.8)
[2023-03-10 13:02] LABS: Phosphorus 3.4 mg/dL (2.4-5.1)
[2023-03-10 13:07] LABS: Protein, Urine < 6.0 mg/dL (0.0-11.9)
[2023-03-10 13:10] LABS: Creatinine, Urine 59.56 mg/dL (30.0-125.0)
== END | disposition home or self-care (01) ==
LOC: LAB 11:55
PROVIDERS: ATTEND Internal Medicine
DX: N18.32 Chronic kidney disease, stage 3b (principal); D63.1 Anemia in chronic kidney disease; E11.21 Type 2 diabetes mellitus with diabetic nephropathy; E21.3 Hyperparathyroidism, unspecified; M10.9 Gout, unspecified; R80.9 Proteinuria, unspecified
CPT/HCPCS: 36415; 80069; 81001; 82570; 83036; 83970; 84156; 84550; 85025

== ENCOUNTER → 2023-03-13 | Outpatient (CLI) | payer OTHER ==
[2023-03-13 13:24] LABS: Chloride 107 mmol/L (98-107); Potassium 4.5 mmol/L (3.5-5.1); Sodium 139 mmol/L (136-145)
[2023-03-13 13:25] LABS: Anion Gap 7 (5-15); Carbon Dioxide 25 mmol/L (20-30)
[2023-03-13 13:26] LABS: Calcium 9.5 mg/dL (8.7-10.4)
[2023-03-13 13:30] LABS: BUN/Creatinine Ratio 11.5 (10.0-20.0); Blood Urea Nitrogen 16 mg/dL (9-23); Glucose 121 mg/dL (74-106)
== END | disposition home or self-care (01) ==
LOC: LAB 10:47
PROVIDERS: ATTEND Internal Medicine
DX: I10 Essential (primary) hypertension (principal); R73.03 Prediabetes
CPT/HCPCS: 36415; 80048; 83036

== ENCOUNTER → 2023-04-19 | Outpatient (CLI) | payer MEDICARE, OTHER ==
[~2023-04-19] MED LIST changes: +BARIUM SULFATE 98% 340 GM PWDR ONE
== END | disposition home or self-care (01) ==
LOC: XYW 13:07
PROVIDERS: ATTEND Internal Medicine
DX: R13.10 Dysphagia, unspecified (principal)
CPT/HCPCS: 74220; 92611

== ENCOUNTER → 2023-05-18 | Outpatient (CLI) | payer OTHER ==
[~2023-05-18] MED LIST changes: -BARIUM SULFATE 98% 340 GM PWDR ONE
[2023-05-18 14:52] LABS: Alanine Aminotransferase 28 U/L (7-40); Albumin 4.4 g/dL (3.2-4.8); Alkaline Phosphatase 96 U/L (46-116); Calcium 9.2 mg/dL (8.5-10.1); Carbon Dioxide 23 mmol/L (20-30); Chloride 109 mmol/L (98-107); Glucose 105 mg/dL (74-106); Sodium 141 mmol/L (136-145)
[2023-05-18 14:53] LABS: Anion Gap 9 (5-15); Aspartate Aminotransferase 18 U/L (13-40); BUN/Creatinine Ratio 9.8 (10.0-20.0); Bilirubin, Total 0.5 mg/dL (0.2-1.0); Blood Urea Nitrogen 14 mg/dL (9-23); Total Protein 6.9 g/dL (5.7-8.2)
== END | disposition home or self-care (01) ==
LOC: LAB 14:03
PROVIDERS: ATTEND Internal Medicine
DX: I13.0 Hypertensive heart and chronic kidney disease with heart failure and stage 1 through stage 4 chronic kidney disease, or unspecified chronic kidney disease (principal); I50.22 Chronic systolic (congestive) heart failure; N18.32 Chronic kidney disease, stage 3b
CPT/HCPCS: 36415; 80053; 82274; 84153

== ENCOUNTER → 2023-07-28 | Outpatient (CLI) | payer OTHER ==
[~2023-07-28] VITALS: Ht 175.3 cm; Wt 72.6 kg
[2023-07-28] MEDS: ADENOSINE 61 MG in GIVE UN-DILUTED 0 ML IV ONE (09:20)
== END | disposition home or self-care (01) ==
LOC: XYW 08:09
PROVIDERS: ATTEND Student in an Organized Health Care Education/Training Program
DX: I20.9 Angina pectoris, unspecified (principal)
CPT/HCPCS: 78452; 93017; A9500; J0153

== ENCOUNTER → 2023-07-31 | Outpatient (CLI) | payer OTHER | END | disposition home or self-care (01) | LOC: XYW 12:47 | PROVIDERS: ATTEND Student in an Organized Health Care Education/Training Program | DX: I08.0 Rheumatic disorders of both mitral and aortic valves (principal); I50.42 Chronic combined systolic (congestive) and diastolic (congestive) heart failure | CPT/HCPCS: 93306 ==

== ENCOUNTER → 2024-01-01 | Outpatient (CLI) | payer OTHER ==
[~2024-01-01] MED LIST changes: -CAR125T PO; +CARV-216 PO
[2024-01-01 11:02] LABS: Basophils # (auto) 0 10 ^3/uL (0-0.2); Basophils % (auto) 0.6 % (0.0-2.0); Eosinophils # (auto) 0.1 10 ^3/uL (0-0.8); Eosinophils % (auto) 1.7 % (0.0-7.0); Hematocrit 40.9 % (41.0-53.0); Hemoglobin 13.4 g/dL (13.5-17.5); Lymphocytes # (auto) 1.2 10 ^3/uL (0.4-5.4); Lymphocytes % (auto) 22.7 % (10.0-50.0); Mean Corpuscular Hemoglobin 27.9 pg (28.0-32.0); Mean Corpuscular Hgb Conc. 32.7 g/dL (32.0-36.0); Mean Corpuscular Volume 85.4 fL (80.0-100.0); Monocytes # (auto) 0.5 10 ^3/uL (0-1.3); Monocytes % (auto) 9.9 % (0.0-12.0); Neutrophils # (auto) 3.3 10 ^3/uL (1.6-8.6); Neutrophils % (auto) 65.1 % (37.0-80.0); Nucleated Red Blood Cells % 0.1 %; Red Blood Cells 4.79 10^6/uL (4.5-5.90); Red Cell Distribution Width 16.2 % (11.8-14.3); White Blood Cell 5.1 10^3/uL (4.4-10.8)
[2024-01-01 11:55] LABS: Alanine Aminotransferase 23 U/L (7-40); Albumin 4.4 g/dL (3.2-4.8); Alkaline Phosphatase 74 U/L (46-116); Anion Gap 6 (5-15); Aspartate Aminotransferase 12 U/L (13-40); BUN/Creatinine Ratio 12.2 (10.0-20.0); Bilirubin, Total 0.7 mg/dL (0.2-1.0); Blood Urea Nitrogen 16 mg/dL (9-23); Calcium 9.5 mg/dL (8.7-10.4); Carbon Dioxide 26 mmol/L (20-30); Chloride 109 mmol/L (98-107); Cholesterol 107 mg/dL (< 200); Glucose 111 mg/dL (74-106); HDL Cholesterol 41 mg/dL (40-59); LDL Cholesterol 52 mg/dL (< 100); Potassium 4.6 mmol/L (3.5-5.1); Sodium 141 mmol/L (136-145); Total Protein 6.8 g/dL (5.7-8.2); Triglycerides 90 mg/dL (< 150)
== END | disposition home or self-care (01) ==
LOC: LAB 10:49
PROVIDERS: ATTEND Internal Medicine
DX: I13.0 Hypertensive heart and chronic kidney disease with heart failure and stage 1 through stage 4 chronic kidney disease, or unspecified chronic kidney disease (principal); N18.9 Chronic kidney disease, unspecified; I50.9 Heart failure, unspecified; R73.09 Other abnormal glucose
CPT/HCPCS: 36415; 80053; 80061; 82607; 83036; 85025

== ENCOUNTER → 2024-02-13 | Outpatient (CLI) | payer OTHER ==
[2024-02-13 15:05] LABS: Free T4 (Free Thyroxine) 1.08 ng/dL (0.89-1.76); T3 Total 1.19 ng/mL (0.60-1.81)
[2024-02-13 15:06] LABS: Free T3 3.16 pg/mL (2.3-4.2)
== END | disposition home or self-care (01) ==
LOC: LAB 14:09
PROVIDERS: ATTEND Internal Medicine
DX: I13.0 Hypertensive heart and chronic kidney disease with heart failure and stage 1 through stage 4 chronic kidney disease, or unspecified chronic kidney disease (principal); N18.9 Chronic kidney disease, unspecified; I50.9 Heart failure, unspecified; I25.5 Ischemic cardiomyopathy
CPT/HCPCS: 84439; 84480; 84481

== ENCOUNTER 2024-02-21 08:43 | Day surgery (SDC) | payer OTHER ==
[2024-02-19 11:17] LABS: Basophils # (auto) 0 10 ^3/uL (0-0.2); Basophils % (auto) 0.6 % (0.0-2.0); Eosinophils # (auto) 0.1 10 ^3/uL (0-0.8); Eosinophils % (auto) 1.6 % (0.0-7.0); Hematocrit 39.8 % (41.0-53.0); Hemoglobin 13.1 g/dL (13.5-17.5); Lymphocytes # (auto) 1.6 10 ^3/uL (0.4-5.4); Lymphocytes % (auto) 24.8 % (10.0-50.0); Mean Corpuscular Hemoglobin 27.7 pg (28.0-32.0); Mean Corpuscular Hgb Conc. 32.9 g/dL (32.0-36.0); Monocytes # (auto) 0.6 10 ^3/uL (0-1.3); Monocytes % (auto) 9.9 % (0.0-12.0); Neutrophils # (auto) 4.1 10 ^3/uL (1.6-8.6); Neutrophils % (auto) 63.1 % (37.0-80.0); Platelet Count (auto) 218 10^3/uL (140-450); Red Blood Cells 4.74 10^6/uL (4.5-5.90); White Blood Cell 6.4 10^3/uL (4.4-10.8)
[2024-02-19 11:32] LABS: INR 1.03 (0.9-1.15); Partial Thromboplastin Time 27.8 SEC (24.5-34.5); Prothrombin Time 10.9 sec (9.3-11.8)
[2024-02-19 11:42] LABS: Alanine Aminotransferase 21 U/L (7-40); Albumin 4.6 g/dL (3.2-4.8); Alkaline Phosphatase 79 U/L (46-116); Anion Gap 9 (5-15); Aspartate Aminotransferase 15 U/L (13-40); BUN/Creatinine Ratio 15.5 (10.0-20.0); Bilirubin, Total 0.5 mg/dL (0.2-1.0); Blood Urea Nitrogen 22 mg/dL (9-23); Calcium 9.8 mg/dL (8.7-10.4); Carbon Dioxide 25 mmol/L (20-30); Chloride 109 mmol/L (98-107); Glucose 103 mg/dL (74-106); Potassium 4.9 mmol/L (3.5-5.1); Sodium 143 mmol/L (136-145); Total Protein 7.1 g/dL (5.7-8.2)
[~2024-02-21] VITALS: Ht 172.7 cm; Wt 72.6 kg
[2024-02-21] VITALS (7 sets, daily range): BP systolic 104–130; BP diastolic 50–65; PULSE 60–74; RESP 12–16; O2SAT 91–96
[~2024-02-21 08:43] MED LIST changes: -AMLO1TAB22 PO; +APIX5TAB PO; -CARV-216 PO; +CARV3.1240 PO; +CHOL200029 PO; -DIGO0.1262 PO; +HYDR25TA88 PO; +ISOS1TAB28 PO; +LISI10TA34 PO; -LOS50T PO; -SERT-206 PO; -TRAZ-227 PO
[2024-02-21] MEDS ORDERED: IODIXANOL 320MG/ML 100ML BTL IV ONE (09:24)
[2024-02-21] MEDS ORDERED: VERAPAMIL 2.5MG/ML INJ 2ML VIAL IV ONE (09:37)
[2024-02-21] MEDS ORDERED: ANGIOMAX 250 MG VIAL IV ONE (09:37)
[2024-02-21] MEDS ORDERED: HEPARIN SODIUM (PORCINE) 5000 UNITS/ML 1ML VIAL ONE (09:37)
[2024-02-21] MEDS ORDERED: fentaNYL CITRATE 100 MCG/2 ML VL ONE (09:38)
[2024-02-21] MEDS ORDERED: MIDAZOLAM HCL 2MG/2ML 2ml VIAL (1mg/ml) ONE (09:38)
[2024-02-21] MEDS ORDERED: SODIUM CHL 0.9% 0 ML ONE (09:38)
[2024-02-21] MEDS ORDERED: LIDOCAINE 2%HCL (LOCAL ANESTH.) INJ 10ml MDV ONE (09:39)
[2024-02-21] MEDS ORDERED: ASCO500T11 PO (10:16)
[2024-02-21] MEDS ORDERED: VITA-89 PO (10:16)
[2024-02-21] MEDS ORDERED: CYAN250L PO (10:16)
[2024-02-21] MEDS ORDERED: MULT-694 OR (10:16)
== END 2024-02-21 12:49 | disposition home or self-care (01) ==
LOC: CATH 08:43
PROVIDERS: ATTEND Internal Medicine
DX: I25.10 Atherosclerotic heart disease of native coronary artery without angina pectoris (principal); I42.9 Cardiomyopathy, unspecified; I50.9 Heart failure, unspecified; Z88.1 Allergy status to other antibiotic agents; Z88.8 Allergy status to other drugs, medicaments and biological substances; Z95.5 Presence of coronary angioplasty implant and graft; Z87.01 Personal history of pneumonia (recurrent); Z82.49 Family history of ischemic heart disease and other diseases of the circulatory system; Z83.3 Family history of diabetes mellitus
CPT/HCPCS: 36415; 80053; 85025; 85610; 85730; 93458; C1769; C1887; C1894; J1644; J2001; J2250; J3010; J7030; Q9967; 99152; 99153

== ENCOUNTER → 2024-02-23 | Outpatient (CLI) | payer OTHER ==
[~2024-02-23] MED LIST changes: +ASCO500T11 PO; +CYAN250L PO; +MULT-694 OR; +VITA-89 PO
[2024-02-23 12:21] LABS: Urine Bacteria None Seen /hpf (None Seen); Urine WBC None Seen /hpf (0 - 3)
[2024-02-23 12:32] LABS: Basophils # (auto) 0 10 ^3/uL (0-0.2); Basophils % (auto) 0.6 % (0.0-2.0); Eosinophils # (auto) 0.1 10 ^3/uL (0-0.8); Eosinophils % (auto) 2.3 % (0.0-7.0); Hematocrit 38.6 % (41.0-53.0); Hemoglobin 12.7 g/dL (13.5-17.5); Lymphocytes # (auto) 1.5 10 ^3/uL (0.4-5.4); Mean Corpuscular Hemoglobin 27.6 pg (28.0-32.0); Mean Corpuscular Volume 83.6 fL (80.0-100.0); Monocytes # (auto) 0.6 10 ^3/uL (0-1.3); Monocytes % (auto) 11.1 % (0.0-12.0); Neutrophils # (auto) 3.3 10 ^3/uL (1.6-8.6); Nucleated Red Blood Cells % 0.1 %; Platelet Count (auto) 208 10^3/uL (140-450); Red Blood Cells 4.61 10^6/uL (4.5-5.90); Red Cell Distribution Width 16.1 % (11.8-14.3); White Blood Cell 5.7 10^3/uL (4.4-10.8)
[2024-02-23 12:36] LABS: Urine Blood Negative /uL (Negative); Urine Clarity Clear (Clear); Urine Color Light-Yellow (Yellow); Urine Protein, UAD Negative (Negative); Urine Specific Gravity 1.007 (1.001-1.035); Urine Urobilinogen Normal (Negative); Urine pH 5.5 (5.0-9.0)
[2024-02-23 12:45] LABS: Alanine Aminotransferase 20 U/L (7-40); Albumin 4.4 g/dL (3.2-4.8); Alkaline Phosphatase 74 U/L (46-116); Anion Gap 5 (5-15); Aspartate Aminotransferase 16 U/L (13-40); BUN/Creatinine Ratio 12.6 (10.0-20.0); Bilirubin, Total 0.8 mg/dL (0.2-1.0); Blood Urea Nitrogen 17 mg/dL (9-23); Calcium 9.3 mg/dL (8.7-10.4); Carbon Dioxide 25 mmol/L (20-31); Chloride 108 mmol/L (98-107); Glucose 79 mg/dL (74-106); Potassium 4.1 mmol/L (3.5-5.1); Sodium 138 mmol/L (136-145); Total Protein 6.8 g/dL (5.7-8.2)
[2024-02-23 13:16] LABS: Protein, Urine < 6.0 mg/dL (1-14)
[2024-02-23 13:18] LABS: Urine Protein/Creatinine Ratio 0.15
[2024-02-23 13:21] LABS: Micro Albumin < 3.0 mg/L (<30.0)
== END | disposition home or self-care (01) ==
LOC: LAB 11:38
PROVIDERS: ATTEND Internal Medicine
DX: E11.22 Type 2 diabetes mellitus with diabetic chronic kidney disease (principal); N18.30 Chronic kidney disease, stage 3 unspecified; E11.21 Type 2 diabetes mellitus with diabetic nephropathy; D63.1 Anemia in chronic kidney disease; N39.0 Urinary tract infection, site not specified; R80.9 Proteinuria, unspecified; E21.3 Hyperparathyroidism, unspecified; M10.9 Gout, unspecified; E55.9 Vitamin D deficiency, unspecified
CPT/HCPCS: 36415; 80053; 81001; 82043; 82306; 82570; 83036; 84156; 84550; 85025

== ENCOUNTER → 2024-03-22 | Outpatient (CLI) | payer OTHER, MEDICARE | END | disposition home or self-care (01) | LOC: LAB 15:55 | PROVIDERS: ATTEND Internal Medicine | DX: Z00.01 Encounter for general adult medical examination with abnormal findings (principal) | CPT/HCPCS: 82274 ==

== ENCOUNTER → 2024-04-11 | Outpatient (CLI) | payer OTHER ==
[2024-04-11 12:51] LABS: Alanine Aminotransferase 27 U/L (7-40); Albumin 4.2 g/dL (3.2-4.8); Alkaline Phosphatase 69 U/L (46-116); Anion Gap 9 (5-15); Aspartate Aminotransferase 20 U/L (13-40); Bilirubin, Total 0.5 mg/dL (0.2-1.0); Blood Urea Nitrogen 16 mg/dL (9-23); Calcium 9.4 mg/dL (8.7-10.4); Carbon Dioxide 24 mmol/L (20-31); Chloride 111 mmol/L (98-107); Glucose 107 mg/dL (74-106); Potassium 4.6 mmol/L (3.5-5.1); Sodium 144 mmol/L (136-145); Total Protein 6.7 g/dL (5.7-8.2)
== END | disposition home or self-care (01) ==
LOC: LAB 11:43
PROVIDERS: ATTEND Internal Medicine
DX: Z01.812 Encounter for preprocedural laboratory examination (principal)
CPT/HCPCS: 36415; 80053

== ENCOUNTER 2024-06-30 12:58 | Inpatient (IN) | payer OTHER ==
[~2024-06-30] VITALS: Ht 175.3 cm; Wt 77.0 kg
--- NOTE | 2024-06-30 14:16 | DVH ---
CLINICAL INDICATION: 4FT FALL TECHNIQUE: XY R SHOULDER 2+ VIEW XRAY Comparison: None FINDINGS/IMPRESSION: : Displaced and comminuted fracture involving the proximal humeral metaphysis and lateral aspect of the proximal humeral head. Degenerative changes of the shoulder joint. No shoulder joint dislocation.
--- NOTE | 2024-06-30 14:16 | DVH ---
CLINICAL INDICATION: 4FT FALL TECHNIQUE: XY R SHOULDER 2+ VIEW XRAY, XY R HUMERUS XRAY Comparison: None FINDINGS/IMPRESSION: : Displaced and comminuted fracture involving the proximal humeral metaphysis and lateral aspect of the proximal humeral head. Degenerative changes of the shoulder joint. No shoulder joint dislocation.
[2024-06-30] MEDS: HYDROcodone-ACET 5/325MG TAB PO ONE (16:00)
--- NOTE | 2024-06-30 16:10 | ED.PDOC ---
Wanda. trauma (HPI) HPI Comments 74 y.o male with PMHx of CHF, Hyperlipidemia, HTN and leaky aortic valve, presents to the ED for a chief complaint of right upper arm, shoulder and nose pain s/p fall today. Patient was on a 4 feet ladder cutting branches, states one branch hit him across the face, caused him to lose balance and fell right onto his right shoulder. Patient denies any LOC, head pain, nausea, vomiting, dizziness, chest pain or SOB. Patient has positive pulse and capillary refill. Limited ROM to right arm. No open wound, nose bridge skin abrasion. Patient is on Plavix and Eliquis. No up to date with tetanus vaccine. Chief Complaint: Fall Injury Time Seen by MD: 15:30 Primary Care Provider: DONALD Reviewed notes: Nurses Notes, Medications, Allergies Allergies: Coded Allergies: Cefuroxime (Verified Allergy, Severe, 12/02/14) Amiodarone (Verified Allergy, Unknown, SWELLING, RASH, 02/19/24) Uncoded Allergies: CEFTON (Allergy, Severe, 07/01/14) Home Meds Reported Medications Cyanocobalamin (VITAMIN B 12) 250 Mcg Syd, 500 MCG PO 4x/week for supplement, LO Z 02/21/24 Multiple Vitamins W/ Minerals (CHANDU BUI) Senior Tab, 1 OR 3x/week for supplement, TAB 02/21/24 Tocopheryl Acetate, Dl-Alpha (Vitamin E) 180 Mg Cap, 180 MG PO 4x/week for supplement, CAP 02/21/24 Ascorbic Acid (VITAMIN C TABLET) 500 Mg Tb, 500 MG PO 4x/week for supplement, TAB 02/21/24 Apixaban Base (ELIQUIS) 5 Mg Tab, 5 MG PO BID for A. FIB, TAB 02/19/24 Cholecalciferol (VITAMIN D3) 2,000 Unit Chw, 2000 UNIT PO DAILY for SUPPLEMENT, TAB.CHEW 02/19/24 Hydralazine Hcl (Hydralazine Hcl) 25 Mg Tab, 25 MG PO BID for HTN, MG 24 Isosorbide Mononitrate (Isosorbide Mononitrate Er) 30 Mg Tab, 30 MG PO QAM for CHEST PAIN, MG 02/19/24 Lisinopril (Lisinopril) 10 Mg Tab, 10 MG PO DAILY for HTN for 30 Days, MG 02/19/24 Carvedilol (Carvedilol) 3.125 Mg Tab, 3.125 MG PO BID for HTN, MG 02/19/24 Aspirin (Asa) 81 Mg Ch, 81 MG PO DAILY, TAB.CHEW 02/10/20 Atorvastatin Calcium (ATORVASTATIN CALCIUM) 20 Mg Tab, 20 MG PO HS, TAB 02/10/20 Clopidogrel Bisulfate (CLOPIDOGREL) 75 Mg Tab, 75 MG PO DAILY for 30 Days, MG 02/10/20 Spironolactone (Spironolactone) 25 Mg Tab, 12.5 MG PO DAILY, TAB 02/10/20 Information Source: Patient Mode of Arrival: Ambulatory Severity: Moderate Timing: Hours Duration: Since onset Location: (R) Arm, (R) Shoulder Location of laceration: Face Mechanism: Fall Associated signs and symtoms: Other Past Medical History PAST MEDICAL HISTORY: CAD, CHF, HTN Past Medical History (Other): leaky aortic valve Surgical History: Hernia Repair, PTCA, Tonsillectomy Family History Family History: No family hx of DM, No family hx of HTN Social History Smoker: Non-Smoker Alcohol: Denies ETOH Use Drugs: Denies Drug Use Lives In: Home Constitutional: denies: chills, diaphoresis, fatigue, fever, malaise, sweats, weakness, others EENTM: denies: blurred vision, double vision, ear bleeding, ear discharge, ear drainage, ear pain, ear ringing, eye pain, eye redness, hearing loss, mouth pain, mouth swelling, nasal discharge, nose bleeding, nose congestion, nose pain, photophobia, tearing, throat pain, throat swelling, voice changes, others Respiratory: denies: cough, hemoptysis, orthopnea, SOB at rest, shortness of breath, SOB with excertion, stridor, wheezing, others Cardiovascular: denies: chest pain, dizzy spells, diaphoresis, Dyspnea on exertion, edema, irregular heart beat, left arm pain, lightheadedness, palpitations, PND, syncope, others Gastrointestinal: denies: abdomen distended, abdominal pain, blood streaked bowels, constipated, diarrhea, dysphagia, difficulty swallowing, hematemesis, melena, nausea, poor appetite, poor fluid intake, rectal bleeding, rectal pain, vomiting, others Genitourinary: denies: burning, dysuria, flank pain, frequency, hematuria, incontinence, penile discharge, penile sore, pain, testicle pain, testicle swelling, urgency, others Neurological: denies: dizziness, fainting, headache, left sided numbness, left sided weakness, numbness, paresthesia, pre-existing deficit, right sided numbness, right sided weakness, seizure, speech problems, tingling, tremors, weakness, others Musculoskeletal: reports: others (right shoulder and right upper arm pain. Nose pain ); denies: back pain, gout, joint pain, joint swelling, muscle pain, muscle stiffness, neck pain Integumetry: denies: bruises, change in color, change in hair/nails, dryness, laceration, lesions, lumps, rash, wounds, others Allergic/Immunocompromised: denies: Difficulty Healing, Frequent Infections, Hives, Itching, others Hematologic/Lymphatic: denies: anemia, blood clots, easy bleeding, easy bruising, swollen glands, others Endocrine: denies: excessive hunger, excessive sweating, excessive thirst, excessive urination, flushing, intolerance to cold, intolerance to heat, unexplained weight gain, unexplained weight loss, others Psychiatric: denies: anxiety, bipolar disorder, depression, hopeless, panic disorder, schizophrenia, sleepless, suicidal, others All Other Systems: Reviewed and Negative Physical Exam General Appearance: No Apparent Distress, Normal HEENT: Normal ENT Inspection, Pharynx Normal, TMs Normal Neck: Full Range of Motion, Non-Tender, Normal, Normal Inspection Respiratory: Chest Non-Tender, Lungs Clear, No Accessory Muscle Use, No Respiratory Distress, Normal Breath Sounds Cardiovascular: No Edema, No JVD, No Murmur, No Gallop, Normal Peripheral Pulses, Regular Rate/Rhythm Breast Exam: Deferred Gastrointestinal: No Organomegaly, Non Tender, No Pulsatile Mass, Normal Bowel Sounds, Soft Genitalia: Deferred Pelvic: Deferred Rectal: Deferred Extremities: No calf tenderness, Normal capillary refill, Normal inspection, No pedal edema, Other (Right upper extremity with tenderness to palpation over the proximal humerus area, no significant swelling, no open wounds, 2+ radial pulse, sensation intact to light touch throughout, full range of motion of the patient's elbow wrist and fingers distally) Musculoskeletal : Apperance: Normal Neurologic: Alert, dry wall applicator II-XII nml as Tested, No Motor Deficits, Normal Affect, Normal Mood, No Sensory Deficits Cerebellar Function: Normal Reflexes: Normal Skin: Dry, Normal Color, Warm Lymphatic: No Adenopathy Was a procedure done? Was a procedure done?: No Differential Diagnosis Multiple Trauma: Closed Head Injury, Fractures, Abrasions, Contusion X-Ray, Labs, Meds, VS Vital Signs Date Time Temp Pulse Resp B/P (MAP) Pulse Ox O2 Delivery O2 Flow Rate FiO2 06/30/24 19:12 74 12 124/64 06/30/24 18:46 74 15 124/64 (84) 95 06/30/24 17:33 68 06/30/24 17:32 69 16 98 Room Air* 0 21 06/30/24 17:31 69 16 134/59 06/30/24 17:31 69 16 134/59 (84) 98 06/30/24 13:15 98.1 68 20 113/74 (87) 97 Current Medications Medications (Trade) Dose Ordered Sig/Obdulio Route Start Time Stop Time Status Last Admin Morphine Sulfate 4 mg ONCE ONCE IV 06/30/24 17:15 06/30/24 17:16 DC 06/30/24 17:31 Ondansetron HCl (Zofran) 4 mg ONCE ONCE IV 06/30/24 17:15 06/30/24 17:16 DC 06/30/24 17:31 [place] [address] Ph: [phone] DIAGNOSTIC IMAGING Diagnostic Imaging Report : [id number] Signed PATIENT: BARI ROSAS ACCT: [id number] UNIT: [id number] : 1950 LOC: ER ROOM / BED: / AGE / SEX: 74 / M ADM STATUS: REG ER SERVICE 1341 ORDERING PHYSICIAN: ALEJANDRINA HAMLIN MD PROCEDURE(s): RSHD2 - R SHOULDER 2+ VIEW XRAY REASON: 4FT FALL ORDER NUMBER(s): [id number], ACCESSION NUMBER(s): [id number] CLINICAL INDICATION: 4FT FALL TECHNIQUE: XY R SHOULDER 2+ VIEW XRAY Comparison: None FINDINGS/IMPRESSION: : Displaced and comminuted fracture involving the proximal humeral metaphysis and lateral aspect of the proximal humeral head. Degenerative changes of the shoulder joint. No shoulder joint dislocation. ATED BY: MICHAEL BRUNO MD DICTATED DATE/TIME: 06/30/241410 SIGNED BY: MICHAEL BRUNO MD SIGNED DATE/TIME: 06/30/241410 CC: [place] [address] Ph: [phone] DIAGNOSTIC IMAGING Diagnostic Imaging Report : [id number] Signed PATIENT: BARI ROSAS ACCT: [id number] UNIT: [id number] : 1950 LOC: ER ROOM / BED: / AGE / SEX: 74 / M ADM STATUS: REG ER SERVICE 1341 ORDERING PHYSICIAN: ALEJANDRINA HAMLIN MD PROCEDURE(s): RHUM - R HUMERUS XRAY REASON: 4FT FALL ORDER NUMBER(s): [id number], ACCESSION NUMBER(s): [id number] CLINICAL INDICATION: 4FT FALL TECHNIQUE: XY R SHOULDER 2+ VIEW XRAY, XY R HUMERUS XRAY Comparison: None FINDINGS/IMPRESSION: : Displaced and comminuted fracture involving the proximal humeral metaphysis and lateral aspect of the proximal humeral head. Degenerative changes of the shoulder joint. No shoulder joint dislocation. ATED BY: MICHAEL BRUNO MD DICTATED DATE/TIME: 06/30/241410 SIGNED BY: MICHAEL BRUNO MD SIGNED DATE/TIME: 06/30/241410 CC: [place] [address] Ph: [phone] DIAGNOSTIC IMAGING Diagnostic Imaging Report : [id number] Signed PATIENT: BARI ROSAS ACCT: [id number] UNIT: [id number] : 1950 LOC: ER ROOM / BED: / AGE / SEX: 74 / M ADM STATUS: REG ER SERVICE 1558 ORDERING PHYSICIAN: YULISA SADLER MD PROCEDURE(s): HWOCT - HEAD WITHOUT CONTRAST REASON: fall on thinners ORDER NUMBER(s): [id number], ACCESSION NUMBER(s): [id number] EXAM: CT HEAD WITHOUT CONTRAST INDICATION: fall on thinners TECHNIQUE: CT of the head without intravenous contrast. Radiation Dose : 1. Head: CT Dose: CTDI volume is 52.55 mGy. Dose-length product is 947.65 mGy*cm The dose indicators for CT are the volume Computed Tomography (CT) Dose Index (CTDIvol) and the Dose Length Product (DLP), and are measured in units of mGy and mGy-cm, respectively. These indicators are not patient dose, but values generated from the CT scanner acquisition factors. The report includes radiation exposure data for exposures received during this examination. COMPARISON: None FINDINGS: There is no evidence of acute intracranial hemorrhage, extra-axial collection, mass effect, midline shift, herniation or hydrocephalus. The ventricles, sulci and cisterns are age appropriate. The pretty-white differentiation is intact. Patchy periventricular and subcortical white matter hypoattenuation is nonspecific but may be related to small vessel ischemic disease. The visualized paranasal sinuses and mastoid air cells are clear. The surrounding soft tissues and osseous structures are unremarkable. IMPRESSION: No acute intracranial abnormality. Radiation optimization: All CT scans at this facility use at least one of these dose optimization techniques: automated exposure control mA and/or kV adjustment per patient size (includes targeted exams where dose is matched to clinical indication) or iterative reconstruction. ATED BY: MICHAEL BRUNO MD DICTATED DATE/TIME: 06/30/241628 SIGNED BY: MICHAEL BRUNO MD SIGNED DATE/TIME: 06/30/241628 CC: X-Ray, Labs, Meds, VS Comment 74-year-old male here today with evidence of right humeral comminuted fracture. Vitals signs stable, afebrile. Patient neurovascularly intact distally on exam. Patient given pain medication which helped to control his pain however he states that he does not need help taking care of himself and can not go home as he feels unsafe. Plan made to admit the patient to the ER for management of his humeral fracture and home health arrangement. Patient in agreement with the plan. Time of 1ST Reevaluation: 16:03 Reevaluation 1ST: Unchanged Patient Education/Counseling: Diagnosis, Treatment, Prognosis Family Education/Counseling: Diagnosis, Treatment, Prognosis Departure 1 Departure Time of Disposition: 19:24 Impression: Primary Impression: Comminuted fracture of humerus Disposition: ADMITTED INPATIENT Admit to: Med Surg Condition: Stable Critical Care Note Critical Care Time?: No Stability Stability form required: No Heart Score Heart Score: Heart Score Response (Comments) Value History N/A 0 EKG N/A 0 Age N/A 0 Risk Factors N/A 0 Troponin N/A 0 Total 0 I personally scribed for YULISA SADLER MD ([email or web address]) on 06/30/24 at 16:10. Electronically submitted by Candace Brady ([employer]). I personally scribed for YULISA SADLER MD ([email or web address]) on 06/30/24 at 16:38. Electronically submitted by Candace Brady ([employer]). YULISA SADLER MD Jun 30, 2024 16:10
--- NOTE | 2024-06-30 16:34 | DVH ---
EXAM: CT HEAD WITHOUT CONTRAST INDICATION: fall on thinners TECHNIQUE: CT of the head without intravenous contrast. Radiation Dose : 1. Head: CT Dose: CTDI volume is 52.55 mGy. Dose-length product is 947.65 mGy*cm The dose indicators for CT are the volume Computed Tomography (CT) Dose Index (CTDIvol) and the Dose Length Product (DLP), and are measured in units of mGy and mGy-cm, respectively. These indicators are not patient dose, but values generated from the CT scanner acquisition factors. The report includes radiation exposure data for exposures received during this examination. COMPARISON: None FINDINGS: There is no evidence of acute intracranial hemorrhage, extra-axial collection, mass effect, midline s hift, herniation or hydrocephalus. The ventricles, sulci and cisterns are age appropriate. The pretty-white differentiation is intact. Patchy periventricular and subcortical white matter hypoattenuation is nonspecific but may be related to small vessel ischemic disease. The visualized paranasal sinuses and mastoid air cells are clear. The surrounding soft tissues and osseous structures are unremarkable. IMPRESSION: No acute intracranial abnormality. Radiation optimization: All CT scans at this facility use at least one of these dose optimization [place] hniques: automated exposure control mA and/or kV adjustment per patient size (includes targeted exam s where dose is matched to clinical indication) or iterative reconstruction.
[2024-06-30] MEDS: ONDANSETRON HCL 4 MG/2 ML VIAL IV ONE (17:31)
[2024-06-30] MEDS: MORPHINE SULFATE 4 MG/ML SYR/VIAL IV ONE (17:31)
[2024-06-30 17:32] VITALS: PULSE 69; RESP 16; O2SAT 98
[2024-06-30] MEDS ORDERED: ACETAMINOPHEN 325 MG TAB PO PRN (19:30)
[2024-06-30] MEDS ORDERED: ONDANSETRON HCL 4 MG/2 ML VIAL IV PRN (19:30)
[2024-06-30 19:59] LABS: Basophils # (auto) 0 10 ^3/uL (0-0.2); Basophils % (auto) 0.1 % (0.0-2.0); Eosinophils # (auto) 0 10 ^3/uL (0-0.8); Hemoglobin 11.4 g/dL (13.5-17.5); Lymphocytes # (auto) 0.8 10 ^3/uL (0.4-5.4); Monocytes # (auto) 0.5 10 ^3/uL (0-1.3); Neutrophils # (auto) 9.6 10 ^3/uL (1.6-8.6); Nucleated Red Blood Cells % 0.1 %; White Blood Cell 10.9 10^3/uL (4.4-10.8)
[2024-06-30 20:01] LABS: Hematocrit 36.7 % (41.0-53.0); Lymphocytes % (auto) 7.3 % (10.0-50.0); Mean Corpuscular Hgb Conc. 30.9 g/dL (32.0-36.0); Mean Corpuscular Volume 74.2 fL (80.0-100.0); Monocytes % (auto) 4.9 % (0.0-12.0); Neutrophils % (auto) 87.7 % (37.0-80.0); Platelet Count (auto) 231 10^3/uL (140-450); Red Blood Cells 4.95 10^6/uL (4.5-5.90); Red Cell Distribution Width 17.8 % (11.8-14.3)
[2024-06-30 20:16] LABS: INR 1.09 (0.9-1.15); Partial Thromboplastin Time 26.5 SEC (24.5-34.5); Prothrombin Time 11.5 sec (9.3-11.8)
[2024-06-30 20:28] LABS: Alanine Aminotransferase 23 U/L (7-40); Albumin 4.5 g/dL (3.2-4.8); Alkaline Phosphatase 79 U/L (46-116); Anion Gap 11 (5-15); Aspartate Aminotransferase 18 U/L (13-40); BUN/Creatinine Ratio 18.1 (10.0-20.0); Bilirubin, Total 0.6 mg/dL (0.2-1.0); Calcium 9.8 mg/dL (8.7-10.4); Carbon Dioxide 20 mmol/L (20-31); Potassium 4.4 mmol/L (3.5-5.1); Sodium 140 mmol/L (136-145); Total Protein 6.9 g/dL (5.7-8.2)
[2024-06-30 20:38] LABS: Blood Urea Nitrogen 27 mg/dL (9-23); Chloride 109 mmol/L (98-107); Glucose 147 mg/dL (74-106)
[2024-06-30] MEDS: hydrALAZINE HCL 25 MG TAB PO SCH (22:00)
[2024-06-30] MEDS: MORPHINE SULFATE INJ 2 MG/ml SYRG IV PRN (22:21)
[2024-06-30] MEDS: ATORVASTATIN 20 MG TAB PO SCH (22:21)
[2024-06-30 23:24] VITALS: BP 124/59; PULSE 74; RESP 18; TEMP 98.7; O2SAT 95
[2024-06-30] MEDS ORDERED: METO-289 PO (23:57)
[2024-07-01] MEDS: APIXABAN 5 MG TAB PO SCH (00:43)
[2024-07-01] MEDS: HYDROcodone-ACET 5/325MG TAB PO PRN (00:43)
--- NOTE | 2024-07-01 03:43 | DVHHP2 ---
History of Present Illness Reason for Visit: Right arm pain History of Present Illness 74-year-old male presents for evaluation of right arm pain. Patient reports falling off a ladder approximately 4 ft high. Patient was trimming a tree when a branch hit him across the face causing him to lose balance and falling. Reports falling onto his right side with the complaints of right arm pain. Denies head trauma or loss of consciousness. No other acute complaints reported. Past Medical History Hypertension, CHF, CAD Past Surgical History PTCA, tonsillectomy and hernia repair Family History Noncontributory Smoke: No ALCOHOL: none Drugs: None Lives: with Family Review of Systems Review of Systems Review of systems are currently negative otherwise addressed in HPI. Allergies: Coded Allergies: Cefuroxime (Verified Allergy, Severe, 12/02/14) Amiodarone (Verified Allergy, Unknown, SWELLING, RASH, 02/19/24) Uncoded Allergies: CEFTON (Allergy, Severe, 07/01/14) Medications Current Medications Medications Dose Ordered Sig/Obdulio Route Start Time Stop Time Status Last Admin Dose Admin Metoprolol Succinate 50 mg DAILY PO 07/01/24 10:00 Hydralazine HCl 25 mg Q12HR PO 06/30/24 22:00 Atorvastatin Calcium 20 mg HS PO 06/30/24 22:00 06/30/24 22:21 20 MG Clopidogrel Bisulfate 75 mg DAILY PO 07/01/24 10:00 Apixaban 5 mg BID PO 06/30/24 22:00 07/01/24 00:43 5 MG Acetaminophen/ Hydrocodone Bitart 1 tab Q4HP PRN PO 06/30/24 19:30 07/01/24 00:43 1 TAB Ondansetron HCl 4 mg Q4HP PRN IV 06/30/24 19:30 Acetaminophen 650 mg Q6HP PRN PO 06/30/24 19:30 Morphine Sulfate 2 mg Q4HPRN PRN IV 06/30/24 19:30 07/01/24 02:40 2 MG Exam Vital Signs Vital Signs Date Time Temp Pulse Resp B/P (MAP) Pulse Ox O2 Delivery O2 Flow Rate FiO2 07/01/24 02:40 63 18 125/56 06/30/24 23:24 98.7 95 98.7 06/30/24 23:24 Room Air* 0 21 Exam Gen: 74-year-old male in mild distress Skin: Warm, dry, normal color and texture, no rash. HEENT: Normocephalic atraumatic, mucous membranes moist and pink. Neck: Cervical and supraclavicular nodes normal without enlargement, trachea is midline, thyroid gland is normal without masses. Pulmonary: Clear to auscultation and percussion bilaterally. Cardiac: Regular rate and rhythm. No murmur Abdomen: Soft, nontender, nondistended, bowel sounds present all 4 quadrants, no guarding, no rigidity, no organomegaly. Extremities: No cyanosis, clubbing, right arm on a sling with positive distal pulses Neuro: Cranial nerves II through XII grossly intact, normal affect and speech, no focal motor deficits. Labs/Xrays ORDERING PHYSICIAN: ALEJANDRINA HAMLIN MD PROCEDURE(s): RHUM - R HUMERUS XRAY REASON: 4FT FALL ORDER NUMBER(s): [id number], ACCESSION NUMBER(s): [id number] CLINICAL INDICATION: 4FT FALL TECHNIQUE: XY R SHOULDER 2+ VIEW XRAY, XY R HUMERUS XRAY Comparison: None FINDINGS/IMPRESSION: : Displaced and comminuted fracture involving the proximal humeral metaphysis and lateral aspect of the proximal humeral head. Degenerative changes of the shoulder joint. No shoulder joint dislocation. RING PHYSICIAN: ALEJANDRINA HAMLIN MD PROCEDURE(s): RSHD2 - R SHOULDER 2+ VIEW XRAY REASON: 4FT FALL ORDER NUMBER(s): [id number], ACCESSION NUMBER(s): [id number] CLINICAL INDICATION: 4FT FALL TECHNIQUE: XY R SHOULDER 2+ VIEW XRAY Comparison: None FINDINGS/IMPRESSION: : Displaced and comminuted fracture involving the proximal humeral metaphysis and lateral aspect of the proximal humeral head. Degenerative changes of the shoulder joint. No shoulder joint dislocation. RING PHYSICIAN: YULISA SADLER MD PROCEDURE(s): HWOCT - HEAD WITHOUT CONTRAST REASON: fall on thinners ORDER NUMBER(s): [id number], ACCESSION NUMBER(s): [id number] EXAM: CT HEAD WITHOUT CONTRAST INDICATION: fall on thinners TECHNIQUE: CT of the head without intravenous contrast. Radiation Dose : 1. Head: CT Dose: CTDI volume is 52.55 mGy. Dose-length product is 947.65 mGy*cm The dose indicators for CT are the volume Computed Tomography (CT) Dose Index (CTDIvol) and the Dose Length Product (DLP), and are measured in units of mGy and mGy-cm, respectively. These indicators are not patient dose, but values generated from the CT scanner acquisition factors. The report includes radiation exposure data for exposures received during this examination. COMPARISON: None FINDINGS: There is no evidence of acute intracranial hemorrhage, extra-axial collection, mass effect, midline shift, herniation or hydrocephalus. The ventricles, sulci and cisterns are age appropriate. The pretty-white differentiation is intact. Patchy periventricular and subcortical white matter hypoattenuation is nonspecific but may be related to small vessel ischemic disease. The visualized paranasal sinuses and mastoid air cells are clear. The surrounding soft tissues and osseous structures are unremarkable. IMPRESSION: No acute intracranial abnormality. Radiation optimization: All CT scans at this facility use at least one of these dose optimization techniques: automated exposure control mA and/or kV adjustment per patient size (includes targeted exams where dose is matched to clinical indication) or iterative reconstruction. Labs Test 06/30/24 19:50 Range/Units White Blood Count 10.9 H 4.4-10.8 10^3/uL Red Blood Count 4.95 4.5-5.90 10^6/uL Hemoglobin 11.4 L 13.5-17.5 g/dL Hematocrit 36.7 L 41.0-53.0 % Mean Corpuscular Volume 74.2 L 80.0-100.0 fL Mean Corpuscular Hemoglobin 23.0 L 28.0-32.0 pg Mean Corpuscular Hemoglobin Concent 30.9 L 32.0-36.0 g/dL Red Cell Distribution Width 17.8 H 11.8-14.3 % Platelet Count 231 140-450 10^3/uL Mean Platelet Volume 8.1 6.9-10.8 fL Neutrophils (%) (Auto) 87.7 H 37.0-80.0 % Lymphocytes (%) (Auto) 7.3 L 10.0-50.0 % Monocytes (%) (Auto) 4.9 0.0-12.0 % Eosinophils (%) (Auto) 0.0 0.0-7.0 % Basophils (%) (Auto) 0.1 0.0-2.0 % Neutrophils # (Auto) 9.6 H 1.6-8.6 10 ^3/uL Lymphocytes # (Auto) 0.8 0.4-5.4 10 ^3/uL Monocytes # (Auto) 0.5 0-1.3 10 ^3/uL Eosinophils # (Auto) 0 0-0.8 10 ^3/uL Basophils # (Auto) 0 0-0.2 10 ^3/uL Nucleated Red Blood Cells 0.1 % Prothrombin Time 11.5 9.3-11.8 sec Prothrombin Time INR 1.09 0.9-1.15 Activated Partial Thromboplast Time 26.5 24.5-34.5 SEC Sodium Level 140 136-145 mmol/L Potassium Level 4.4 3.5-5.1 mmol/L Chloride Level 109 H 98-107 mmol/L Carbon Dioxide Level 20 20-31 mmol/L Anion Gap 11 5-15 Blood Urea Nitrogen 27 H 9-23 mg/dL Creatinine 1.49 H 0.700-1.30 mg/dL Glomerular Filtration Rate Calc 48 >90 mL/min BUN/Creatinine Ratio 18.1 10.0-20.0 Serum Glucose 147 H 74-106 mg/dL Calcium Level 9.8 8.7-10.4 mg/dL Total Bilirubin 0.6 0.2-1.0 mg/dL Aspartate Amino Transferase (AST) 18 13-40 U/L Alanine Aminotransferase (ALT) 23 7-40 U/L Alkaline Phosphatase 79 46-116 U/L Total Protein 6.9 5.7-8.2 g/dL Albumin 4.5 3.2-4.8 g/dL Assessment/Plan Assessment/Plan Assessment Right humerus fracture Hypertension Plan Admit the patient to [facility] to the hospitalist Orthopedic consultation, placed by ER provider Pain management Resume home medications Continue treatment per orders Plan discussed with: Patient My Orders Orders - ANTONIA CHILDS AGACNP Procedure Category Date Status Time Metoprolol Xl PHA 07/01/24 In Process Succinate (Toprol Xl) 10:00 Hydralazine Hcl PHA 06/30/24 In Process Tablet (Apresoline 22:00 Atorvastatin (Lipitor) PHA 06/30/24 In Process 22:00 Clopidogrel Bisulfate PHA 07/01/24 In Process (Plavix) 10:00 Apixaban (Eliquis) PHA 06/30/24 In Process 22:00 Admit ADMIT 06/30/24 Transmitted 19:26 Hydrocodone-Acet PHA 06/30/24 In Process 5/325mg Tab ([place] 19:30 Ondansetron Hcl PHA 06/30/24 In Process (Zofran) 19:30 Cardiac DIET 07/01/24 Transmitted Diet-2gna,Lofat,Lochol Breakfast Condition: Stable LEENA 06/30/24 In Process 19:26 Acetaminophen Tablet PHA 06/30/24 In Process (Tylenol Tablet) 19:30 Bedrest With Bathroom LEENA 06/30/24 In Process Privileg 19:26 Morphine Sulfate PHA 06/30/24 In Process Injection 19:30 Date of Service: Jun 30, 2024 Billing Provider: ANTONIA CHILDS Common Visit Codes: [id number] INP/OBS CARE (HIGH) ANTONIA CHILDS Jul 01, 2024 03:43
[2024-07-01 05:00] VITALS: BP 120/54; PULSE 63; RESP 18; TEMP 98.3; O2SAT 93
[2024-07-01 08:25] VITALS: PULSE 64; RESP 16; O2SAT 96
[2024-07-01 08:55] VITALS: BP 129/59; PULSE 64; RESP 16; TEMP 98.5; O2SAT 96
[2024-07-01] MEDS: METOPROLOL SUCCINATE XL 50 MG TAB PO SCH (11:26)
[2024-07-01] MEDS: CLOPIDOGREL BISULFATE 75 MG TAB PO SCH (11:27)
--- NOTE | 2024-07-01 12:11 | DVHINCON2 ---
Date of service: Jul 01, 2024 Referring Physician ED Reason for Consultation right proximal humerus fracture History of Present Illness History of Present Illness 74-year-old male presents for evaluation of right arm pain. Patient reports falling off a ladder approximately 4 ft high. Patient was trimming a tree when a branch hit him across the face causing him to lose balance and falling. Reports falling onto his right side with the complaints of right arm pain. Denies head trauma or loss of consciousness. No other acute complaints reporte d. Past Medical History Hypertension, CHF, CAD Past Surgical History PTCA, tonsillectomy and hernia repair Family History Noncontributory Smoke: No ALCOHOL: none Drugs: None Lives: with Family Family History: Family history: Cardiovascular disease G8 FATHER Family history: Diabetes mellitus G8 FATHER Family history: Hypertension G8 FATHER Allergies: Coded Allergies: Cefuroxime (Verified Allergy, Severe, 12/02/14) Amiodarone (Verified Allergy, Unknown, SWELLING, RASH, 02/19/24) Uncoded Allergies: CEFTON (Allergy, Severe, 07/01/14) Home Meds Reported Medications Metoprolol Succinate (Metoprolol Succinate Er) 50 Mg Tab, 50 MG PO DAILY, TAB 06/30/24 Cyanocobalamin (VITAMIN B 12) 250 Mcg Kristian, 500 MCG PO 4x/week for supplement, KRISTIAN 02/21/24 Multiple Vitamins W/ Minerals (S[facility] SENIOR) Senior Tab, 1 OR 3x/week for supplement, TAB 02/21/24 Tocopheryl Acetate, Dl-Alpha (Vitamin E) 180 Mg Cap, 180 MG PO 4x/week for supplement, CAP 02/21/24 Ascorbic Acid (VITAMIN C TABLET) 500 Mg Tb, 500 MG PO 4x/week for supplement, TAB 02/21/24 Apixaban Base (ELIQUIS) 5 Mg Tab, 5 MG PO BID for A. FIB, TAB 02/19/24 Cholecalciferol (VITAMIN D3) 2,000 Unit Chw, 2000 UNIT PO DAILY for SUPPLEMENT, TAB.CHEW 02/19/24 Hydralazine Hcl (Hydralazine Hcl) 25 Mg Tab, 25 MG PO BID for HTN, MG 02/19/24 Isosorbide Mononitrate (Isosorbide Mononitrate Er) 30 Mg Tab, 30 MG PO QAM for CHEST PAIN, MG 02/19/24 Lisinopril (Lisinopril) 10 Mg Tab, 10 MG PO DAILY for HTN for 30 Days, MG 02/19/24 Aspirin (Asa) 81 Mg Ch, 81 MG PO DAILY, TAB.CHEW 02/10/20 Atorvastatin Calcium (ATORVASTATIN CALCIUM) 20 Mg Tab, 20 MG PO HS, TAB 02/10/20 Clopidogrel Bisulfate (CLOPIDOGREL) 75 Mg Tab, 75 MG PO DAILY for 30 Days, MG 02/10/20 Spironolactone (Spironolactone) 25 Mg Tab, 12.5 MG PO DAILY, TAB 02/10/20 Current Medications Current Medications Medications (Trade) Dose Ordered Sig/Obdulio Route PRN Reason Start Time Stop Time Status Last Admin Metoprolol Succinate (Toprol Xl) 50 mg DAILY PO 07/01/24 10:00 07/01/24 11:26 Hydralazine HCl (Apresoline Tablet) 25 mg Q12HR PO 06/30/24 22:00 07/01/24 11:27 Atorvastatin Calcium (Lipitor) 20 mg HS PO 06/30/24 22:00 06/30/24 22:21 Clopidogrel Bisulfate (Plavix) 75 mg DAILY PO 07/01/24 10:00 07/01/24 11:27 Apixaban (Eliquis) 5 mg BID PO 06/30/24 22:00 07/01/24 11:26 Acetaminophen/ Hydrocodone Bitart ([place] 5/325MG Tab) 1 tab Q4HP PRN PO MODERATE PAIN (4-6 PAIN SCALE) 06/30/24 19:30 07/01/24 00:43 Ondansetron HCl (Zofran) 4 mg Q4HP PRN IV NAUSEA / VOMITING 06/30/24 19:30 Acetaminophen (Tylenol Tablet) 650 mg Q6HP PRN PO PAIN SCALE 1-3 OR TEMP>100.4 06/30/24 19:30 Morphine Sulfate 2 mg Q4HPRN PRN IV SEVERE PAIN (7-10 PAIN SCALE) 06/30/24 19:30 07/01/24 11:26 Review of Systems Negative on Ten point review except as above Vital Signs Vital Signs Date Time Temp Pulse Resp B/P (MAP) Pulse Ox O2 Delivery O2 Flow Rate FiO2 07/01/24 11:27 130/57 07/01/24 11:26 69 18 07/01/24 08:55 98.5 96 98.5 07/01/24 08:25 Room Air* 0 21 Physical Exam Well-developed well-nourished male in no acute distress Alert and oriented x4 Right upper extremity in sling Skin intact Tender to palpation proximal humerus Range of motion limited by guarding Distally there was no hand edema He is able to flex extend and abduct adduct his digits Sensation subjectively intact 2+ radial pulse X-rays three views right shoulder reveal a minimally displaced surgical neck fracture right proximal humeral Labs/Diagnostic Data Labs Test 06/30/24 19:50 Range/Units White Blood Count 10.9 H 4.4-10.8 10^3/uL Red Blood Count 4.95 4.5-5.90 10^6/uL Hemoglobin 11.4 L 13.5-17.5 g/dL Hematocrit 36.7 L 41.0-53.0 % Mean Corpuscular Volume 74.2 L 80.0-100.0 fL Mean Corpuscular Hemoglobin 23.0 L 28.0-32.0 pg Mean Corpuscular Hemoglobin Concent 30.9 L 32.0-36.0 g/dL Red Cell Distribution Width 17.8 H 11.8-14.3 % Platelet Count 231 140-450 10^3/uL Mean Platelet Volume 8.1 6.9-10.8 fL Neutrophils (%) (Auto) 87.7 H 37.0-80.0 % Lymphocytes (%) (Auto) 7.3 L 10.0-50.0 % Monocytes (%) (Auto) 4.9 0.0-12.0 % Eosinophils (%) (Auto) 0.0 0.0-7.0 % Basophils (%) (Auto) 0.1 0.0-2.0 % Neutrophils # (Auto) 9.6 H 1.6-8.6 10 ^3/uL Lymphocytes # (Auto) 0.8 0.4-5.4 10 ^3/uL Monocytes # (Auto) 0.5 0-1.3 10 ^3/uL Eosinophils # (Auto) 0 0-0.8 10 ^3/uL Basophils # (Auto) 0 0-0.2 10 ^3/uL Nucleated Red Blood Cells 0.1 % Prothrombin Time 11.5 9.3-11.8 sec Prothrombin Time INR 1.09 0.9-1.15 Activated Partial Thromboplast Time 26.5 24.5-34.5 SEC Sodium Level 140 136-145 mmol/L Potassium Level 4.4 3.5-5.1 mmol/L Chloride Level 109 H 98-107 mmol/L Carbon Dioxide Level 20 20-31 mmol/L Anion Gap 11 5-15 Blood Urea Nitrogen 27 H 9-23 mg/dL Creatinine 1.49 H 0.700-1.30 mg/dL Glomerular Filtration Rate Calc 48 >90 mL/min BUN/Creatinine Ratio 18.1 10.0-20.0 Serum Glucose 147 H 74-106 mg/dL Calcium Level 9.8 8.7-10.4 mg/dL Total Bilirubin 0.6 0.2-1.0 mg/dL Aspartate Amino Transferase (AST) 18 13-40 U/L Alanine Aminotransferase (ALT) 23 7-40 U/L Alkaline Phosphatase 79 46-116 U/L Total Protein 6.9 5.7-8.2 g/dL Albumin 4.5 3.2-4.8 g/dL Assessment Right proximal humerus surgical neck fracture Plan/Recommendation Recommendations I advised him on pendulum exercises when symptoms improve Continue with sling as needed Follow up as orthopedic outpatient in three weeks with new x-rays No indication for surgery at this time. Plan discussed with: Patient JAMEE MIJARES MD Jul 01, 2024 12:11
[2024-07-01 13:00] VITALS: BP 130/57; PULSE 66; RESP 16; TEMP 98.7; O2SAT 94
[2024-07-01] MEDS: HYDROcodone-ACET 10/325MG TAB PO PRN (14:59)
--- NOTE | 2024-07-01 16:40 | DVHPNRES ---
Progress Note Date Seen: Jul 01, 2024 Resident Creating Document: LUIGI ALCARAZ RESIDENT Has the PT tested + for MRSA If YES, has PT been informed?: No Medical Necessity Reason Pt with a Central, PICC or Fol: No Medical Necessity Reason right proximal humerual fracture Subjective Review of Systems This is a 74-year-old with a past medical history of Hypertension, CHF, CAD who presented to the ED with a right arm pain. According to patient, he climbed the ladder to trim the trees. Patient then reports falling off a ladder approximately 4 ft high. Patient was trimming a tree when a branch hit him across the face causing him to lose balance and fell on his right arm. Patient did not hit his head on the concrete and didn't loose consciousness. vitals reveal temperature 98.1 heart rate of 68 respiratory rate 20 and blood pressure of 113/74. blood work revealed WBC of 10.9, cr 1.49. X-ray of the upper extremity showed Displaced and comminuted fracture involving the proximal humeral metaphysis and lateral aspect of the proximal humeral head. Constitutional: Denies fever no chills no feeling of malaise HEENT: Denies headache, ear pain, ear discharges, conjunctivitis, nasal discharge throat pain Cardiovascular: Denies chest pain, palpitation, orthopnea, PND, or pedal edema Respiratory: Denies shortness of breath, cough cough, sputum production, hemoptysis, GI: Denies abdominal pain, nausea, vomiting, diarrhea, hematemesis, hematochezia, : Denies frequency, urgency, hematuria, Endocrine: Denies unintentional weight gain or weight loss, feeling of hot flashes, Cornelio: Denies easy bruising, bleeding disorders, epistaxis Musculoskeletal: Right upper extremity pain Psych: No evidence of depression, delvin, suicidal ideation Objective vital signs Vital Sign Date Time Temp Pulse Resp B/P (MAP) Pulse Ox O2 Delivery O2 Flow Rate FiO2 07/01/24 13:00 98.7 66 16 130/57 (81) 94 98.7 07/01/24 08:25 Room Air* 0 21 Total Intake and Output 06/30/24 06/30/24 07/01/24 15:00 23:00 07:00 Intake Total 600 ml Output Total 0 ml Balance 600 ml medications Current Medications Medications Dose Ordered Sig/Obdulio Route Start Time Stop Time Status Last Admin Dose Admin Metoprolol Succinate 50 mg DAILY PO 2/3/25 10:00 07/01/24 11:26 50 MG Hydralazine HCl 25 mg Q12HR PO 06/30/24 22:00 07/01/24 11:27 25 MG Atorvastatin Calcium 20 mg HS PO 06/30/24 22:00 06/30/24 22:21 20 MG Clopidogrel Bisulfate 75 mg DAILY PO 07/01/24 10:00 07/01/24 11:27 75 MG Apixaban 5 mg BID PO 06/30/24 22:00 07/01/24 11:26 5 MG Ondansetron HCl 4 mg Q4HP PRN IV 06/30/24 19:30 Acetaminophen 650 mg Q6HP PRN PO 06/30/24 19:30 Morphine Sulfate 2 mg Q4HPRN PRN IV 06/30/24 19:30 07/01/24 11:26 2 MG Acetaminophen/ Hydrocodone Bitart 1 tab Q4HP PRN PO 07/01/24 13:30 07/01/24 14:59 1 TAB Examination General Appearance: Alert, Oriented X3, Cooperative, No acute distress HEENT: Atraumatic, PERRLA, EOMI, Mucous membrane moist/pink Respiratory: Clear to auscultation, Normal air movement Cardiovascular: Regular rate, Normal S1, Normal S2, No murmurs, no chest wall tenderness Abdominal: NO distention, no tenderness, bowel sounds present, no scars noted Extremities: Right upper extremity in a sling No clubbing, No cyanosis, No edema, Normal pulses, No tenderness/swelling. sensation intact, motor function is intact.Tender to palpation proximal humerus. Range of motion limited by guarding Skin: No rashes, No breakdown, No significant lesion Neuro: Normal gait, Normal speech, Strength at 5/5 X4 ext, Normal tone, Sensation intact, Cranial nerves 3-12 NL, Reflexes 2+ Psych/Mental Status: Mental status NL, Mood NL laboratory and microbiology Laboratory Tests 06/30/24 19:50 Test 06/30/24 19:50 Range/Units Serum Glucose 147 H 74-106 mg/dL Problem List/Assessment/Plan Problem List/Assessment/Plan Assessment Right proximal humerus surgical neck fracture Hypertension CAD status post PCI CHF elevated creatinine, rule out cayetano Anemia Plan Pain control ( Goff and Morphine on board) Not for surgical intervention at this point ( per orthopedic surgeon) Continue with sling as needed Pendulum exercises when symptoms improve Continue with sling as needed Follow up as orthopedic outpatient in three weeks with new x-rays Code status: Full Goal of care discussed for more than 5 minute Case and plan discussed with Dr. Rodriguez Plan discussed with: Patient, Daughter My Orders My Orders Orders - LUIGI ALCARAZ Procedure Category Date Status Time Hydrocodone-Acet PHA 07/01/24 In Process 10/325mg Tab (Goff 13:30 Date of Service: Jul 01, 2024 Billing Provider: HARIS RODRIGUEZ MD Common Visit Codes: [id number] INP/OBS CARE(HIGH) LUIGI ALCARAZ Jul 01, 2024 16:40 HARIS RODRIGUEZ MD Jul 01, 2024 18:16
[2024-07-01 17:00] VITALS: BP 145/71; PULSE 84; RESP 22; TEMP 99.2; O2SAT 97
[2024-07-01] MEDS: HYDROmorphone HCL 2 MG/ML VL/or syr IM ONE (17:35)
--- NOTE | 2024-07-01 18:09 | DVH ---
CLINICAL INDICATION: severe pain TECHNIQUE: 4 radiographic views of the right humerus were obtained. Comparison: XY R HUMERUS XRAY on DOS: 06/30/24, R HUMERUS XRAY on DOS: 12/09/21 FINDINGS/IMPRESSION: Mildly displaced fracture through the surgical neck of the proximal right humerus. The visualized joint space is well maintained. The alignment is anatomical. There is no radiopaque foreign body.
[2024-07-01] MEDS: HYDROmorphone HCL 2 MG/ML VL/or syr IV PRN (21:56)
[2024-07-02] VITALS (9 sets, daily range): BP systolic 131–151; BP diastolic 53–72; PULSE 68–91; RESP 16–20; TEMP 97.6–98.9; O2SAT 94–97
[2024-07-02] MEDS: HYDROcodone-ACET 10/325MG TAB PO PRN (00:46)
[2024-07-02 07:35] LABS: Basophils # (auto) 0 10 ^3/uL (0-0.2); Basophils % (auto) 0.3 % (0.0-2.0); Eosinophils # (auto) 0.1 10 ^3/uL (0-0.8); Eosinophils % (auto) 0.8 % (0.0-7.0); Hematocrit 33.4 % (41.0-53.0); Hemoglobin 10.6 g/dL (13.5-17.5); Lymphocytes # (auto) 1.1 10 ^3/uL (0.4-5.4); Lymphocytes % (auto) 12.6 % (10.0-50.0); Mean Corpuscular Hemoglobin 23.4 pg (28.0-32.0); Mean Corpuscular Hgb Conc. 31.7 g/dL (32.0-36.0); Mean Corpuscular Volume 73.7 fL (80.0-100.0); Monocytes # (auto) 1.2 10 ^3/uL (0-1.3); Monocytes % (auto) 13.7 % (0.0-12.0); Neutrophils # (auto) 6.4 10 ^3/uL (1.6-8.6); Neutrophils % (auto) 72.6 % (37.0-80.0); Nucleated Red Blood Cells % 0.1 %; Platelet Count (auto) 197 10^3/uL (140-450); Red Blood Cells 4.53 10^6/uL (4.5-5.90); Red Cell Distribution Width 17.5 % (11.8-14.3); White Blood Cell 8.8 10^3/uL (4.4-10.8)
[2024-07-02 07:44] LABS: Alanine Aminotransferase 17 U/L (7-40); Albumin 4.1 g/dL (3.2-4.8); Alkaline Phosphatase 71 U/L (46-116); Anion Gap 9 (5-15); Aspartate Aminotransferase 16 U/L (13-40); BUN/Creatinine Ratio 15.6 (10.0-20.0); Blood Urea Nitrogen 19 mg/dL (9-23); Calcium 9.4 mg/dL (8.7-10.4); Carbon Dioxide 22 mmol/L (20-31); Chloride 106 mmol/L (98-107); Potassium 4.2 mmol/L (3.5-5.1); Sodium 137 mmol/L (136-145); Total Protein 6.6 g/dL (5.7-8.2)
[2024-07-02 07:50] LABS: Glucose 113 mg/dL (74-106)
--- NOTE | 2024-07-02 14:47 | DVHPNRES ---
Progress Note Date Seen: Jul 02, 2024 Resident Creating Document: LUIGI ALCARAZ RESIDENT Has the PT tested + for MRSA If YES, has PT been informed?: No Medical Necessity Reason Pt with a Central, PICC or Fol: No Medical Necessity Reason Right humeral fracture Excruciating pain Subjective Review of Systems This is a 74-year-old with a past medical history of Hypertension, CHF, CAD who presented to the ED with a right arm pain. According to patient, he climbed the ladder to trim the trees. Patient then reports falling off a ladder approximately 4 ft high. Patient was trimming a tree when a branch hit him across the face causing him to lose balance and fell on his right arm. Patient did not hit his head on the concrete and didn't loose consciousness. vitals reveal temperature 98.1 heart rate of 68 respiratory rate 20 and blood pressure of 113/74. blood work revealed WBC of 10.9, cr 1.49. X-ray of the upper extremity showed Displaced and comminuted fracture involving the proximal humeral metaphysis and lateral aspect of the proximal humeral head. PN: 07/02/2024: Patient seen and examined. He is feeling slightly better on Dilaudid 1 mg q4hr prn. Vitals are stable and blood work is good with Cr is trending down 1.49--> 1.22. Will maintain patient and monitor him for pain level. A repeat right upper extremity x-ray did not show any difference. Objective vital signs Vital Sign Date Time Temp Pulse Resp B/P (MAP) Pulse Ox O2 Delivery O2 Flow Rate FiO2 07/02/24 12:59 69 18 127/58 07/02/24 09:00 98.9 95 98.9 07/02/24 08:10 Room Air* 0 21 Total Intake and Output 07/01/24 07/01/24 07/02/24 15:00 23:00 07:00 Intake Total 850 ml 750 ml Balance 850 ml 750 ml medications Current Medications Medications Dose Ordered Sig/Obdulio Route Start Time Stop Time Status Last Admin Dose Admin Metoprolol Succinate 50 mg DAILY PO 07/01/24 10:00 07/02/24 09:31 50 MG Hydralazine HCl 25 mg Q12HR PO 06/30/24 22:00 07/02/24 09:30 25 MG Atorvastatin Calcium 20 mg HS PO 06/30/24 22:00 07/01/24 21:47 20 MG Clopidogrel Bisulfate 75 mg DAILY PO 07/01/24 10:00 07/02/24 09:32 75 MG Apixaban 5 mg BID PO 06/30/24 22:00 07/02/24 09:31 5 MG Ondansetron HCl 4 mg Q4HP PRN IV 06/30/24 19:30 Acetaminophen 650 mg Q6HP PRN PO 06/30/24 19:30 Hydromorphone HCl 1 mg Q4HPRN PRN IV 07/01/24 17:15 07/02/24 12:29 1 MG Acetaminophen/ Hydrocodone Bitart 1 tab Q4HP PRN PO 07/01/24 17:30 07/02/24 08:24 1 TAB Examination General Appearance: Alert, Oriented X3, Cooperative, No acute distress HEENT: Atraumatic, PERRLA, EOMI, Mucous membrane moist/pink Respiratory: Clear to auscultation, Normal air movement Cardiovascular: Regular rate, Normal S1, Normal S2, No murmurs, no chest wall tenderness Abdominal: NO distention, no tenderness, bowel sounds present, no scars noted Extremities: Right upper extremity in a sling No clubbing, No cyanosis, No edema, Normal pulses, No tenderness/swelling. Sensation intact, motor function is intact.Tender to palpation proximal humerus. Range of motion limited by guarding Skin: No rashes, No breakdown, No significant lesion Neuro: Normal gait, Normal speech, Strength at 5/5 X4 ext, Normal tone, Sensation intact, Cranial nerves 3-12 NL, Reflexes 2+ Psych/Mental Status: Mental status NL, Mood NL laboratory and microbiology Laboratory Tests 07/02/24 06:25 Test 07/02/24 06:25 Range/Units Serum Glucose 113 H 74-106 mg/dL Problem List/Assessment/Plan Problem List/Assessment/Plan Assessment Right proximal humerus surgical neck fracture Hypertension CAD status post PCI CHF Acute kidny injury, Cr trending down ( 1.22) Anemia Plan Pain control ( Dilaudid and [place] ) Not for surgical intervention at this point ( per orthopedic surgeon) Continue with sling as needed Pendulum exercises when symptoms improve Continue with sling as needed Follow up as orthopedic outpatient in three weeks with new x-rays Code status: Full Goal of care discussed for more than 30 minutes Case and plan discussed with Dr. Rodriguez Plan discussed with: Patient My Orders My Orders Orders - LUIGI ALCARAZ Procedure Category Date Status Time Hydromorphone PHA 07/01/24 In Process Injection (Dilaudid 17:15 R Humerus Xray XY 07/01/24 Resulted 17:06 Hydrocodone-Acet PHA 07/01/24 In Process 10/325mg Tab ([place] 17:30 Date of Service: Jul 02, 2024 Billing Provider: HARIS RODRIGUEZ MD Common Visit Codes: [id number] INP/OBS CARE(HIGH) LUIGI ALCARAZ Jul 02, 2024 14:47 HARIS RODRIGUEZ MD Jul 02, 2024 18:16
[2024-07-02] MEDS: SODIUM CHLORIDE 0.9% 1,000 ML IV SCH (15:06)
[2024-07-03] VITALS (7 sets, daily range): BP systolic 132–158; BP diastolic 46–81; PULSE 66–111; RESP 16–19; TEMP 97–98.4; O2SAT 95–97
--- NOTE | 2024-07-03 11:27 | DVH ---
EXAM: XY R WRIST 2 VIEW XRAY CLINICAL INDICATION: swollen and painful right wrist TECHNIQUE: XY R WRIST 2 VIEW XRAY Comparison: None FINDINGS/IMPRESSION: There is no evidence of acute fracture or dislocation. 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 The alignment is anatomical. There is no radiopaque foreign body.
--- NOTE | 2024-07-03 15:14 | DVH ---
Exam: US RIGHT UPPER EXT. Date: 07/03/2024 02:39 PM Clinical History: Right swelling wrist Comparison: None Technique: Targeted sonographic evaluation of the soft tissues of the right wrist was obtained utilizing graysca le and color Doppler imaging. Findings: There is a 0.8 x 1.2 x 0.4 cm fluid collection in the right wrist. IMPRESSION: 1. Small fluid collection right wrist recommend MRI for further evaluation.
--- NOTE | 2024-07-03 16:54 | DVHPNRES ---
Progress Note Date Seen: Jul 03, 2024 Resident Creating Document: LES MANNING DT Has the PT tested + for MRSA If YES, has PT been informed?: No Medical Necessity Reason Pt with a Central, PICC or Fol: No Medical Necessity Reason right hemurus fracture Subjective Review of Systems This is a 74-year-old with a past medical history of Hypertension, CHF, CAD who presented to the ED with a right arm pain. According to patient, he climbed the ladder to trim the trees. Patient then reports falling off a ladder approximately 4 ft high. Patient was trimming a tree when a branch hit him across the face causing him to lose balance and fell on his right arm. Patient did not hit his head on the concrete and didn't loose consciousness. vitals reveal temperature 98.1 heart rate of 68 respiratory rate 20 and blood pressure of 113/74. blood work revealed WBC of 10.9, cr 1.49. X-ray of the upper extremity showed Displaced and comminuted fracture involving the proximal humeral metaphysis and lateral aspect of the proximal humeral head. PN: 07/02/2024: Patient seen and examined. He is feeling slightly better on Dilaudid 1 mg q4hr prn. Vitals are stable and blood work is good with Cr is trending down 1.49--> 1.22. Will maintain patient and monitor him for pain level. A repeat right upper extremity x-ray did not show any difference. PN: 07/03/2024: Patient seen and examined today at the bedside. He seems a little better; however, he continued to feel increased excruciating pain in the right upper extremity and patient unable to move his digits. He is able to move his index finger but not the others and unable to make a fist. Also his right wrist is swollen which is new. Currently on Dilaudid 1 mg q4hr prn and [place] 10mg. X- ray of the wrist and and ultrasound x-ray did not reveal any fractures or fluid accumulations. I placed a call and re-consult orthopedic and spoke with the attending physician. He would take a look at the x-ray and make his recommendation. I also spoke with the PA of the orthopedic team and he is okay to see the patient as patient is requesting to speak with the orthopedic team. Patient was seen by the orthopedics team, evaluated and the x-ray reviewed. He said there is no real concerns. Pain is mainly from the muscle spasm and the fracture has not dislocated the joint. He advised that patient be maintained on adequate pain control, muscle relaxant and Tylenol at night. NO NSAIDS. Patient is to follow up with them a week post discharge. Will discharge tomorrow. Objective vital signs Vital Sign Date Time Temp Pulse Resp B/P (MAP) Pulse Ox O2 Delivery O2 Flow Rate FiO2 07/03/24 15:25 72 18 135/63 07/03/24 13:00 98.1 97 98.1 07/03/24 08:00 Room Air* 0 21 Total Intake and Output 07/02/24 07/02/24 07/03/24 15:00 23:00 07:00 Intake Total 885 ml 400 ml Balance 885 ml 400 ml medications Current Medications Medications Dose Ordered Sig/Obdulio Route Start Time Stop Time Status Last Admin Dose Admin Metoprolol Succinate 50 mg DAILY PO 07/01/24 10:00 07/03/24 10:47 50 MG Hydralazine HCl 25 mg Q12HR PO 06/30/24 22:00 07/03/24 10:48 25 MG Atorvastatin Calcium 20 mg HS PO 06/30/24 22:00 07/02/24 22:03 20 MG Clopidogrel Bisulfate 75 mg DAILY PO 07/01/24 10:00 07/03/24 10:47 75 MG Apixaban 5 mg BID PO 06/30/24 22:00 07/03/24 10:48 5 MG Ondansetron HCl 4 mg Q4HP PRN IV 06/30/24 19:30 Acetaminophen 650 mg Q6HP PRN PO 06/30/24 19:30 Hydromorphone HCl 1 mg Q4HPRN PRN IV 07/01/24 17:15 07/03/24 15:25 1 MG Acetaminophen/ Hydrocodone Bitart 1 tab Q4HP PRN PO 07/01/24 17:30 07/03/24 10:48 1 TAB Sodium Chloride 1,000 ml @ 60 mls/hr [id number] IV 07/02/24 14:45 07/03/24 10:54 60 MLS/HR Examination General Appearance: Alert, Oriented X3, Cooperative; moderate pain HEENT: Atraumatic, PERRLA, EOMI, Mucous membrane moist/pink Respiratory: Clear to auscultation, Normal air movement Cardiovascular: Regular rate, Normal S1, Normal S2, No murmurs, no chest wall tenderness Abdominal: NO distention, no tenderness, bowel sounds present, no scars noted Extremities: Right upper extremity in a sling No clubbing, No cyanosis, No edema, Normal pulses, No tenderness/swelling. Sensation intact, motor function is intact.Tender to palpation proximal humerus. Range of motion limited by guarding Skin: No rashes, No breakdown, No significant lesion Neuro: Normal gait, Normal speech, Strength at 5/5 X4 ext, Normal tone, Sensation intact, Cranial nerves 3-12 NL, Reflexes 2+ Psych/Mental Status: Mental status NL, Mood NL laboratory and microbiology Laboratory Tests 07/02/24 06:25 Test 07/02/24 06:25 Range/Units Serum Glucose 113 H 74-106 mg/dL Problem List/Assessment/Plan Problem List/Assessment/Plan Assessment Right proximal humerus surgical neck fracture Hypertension CAD status post PCI CHF Acute kidny injury, Cr trending down ( 1.49-->1.22) on CKD stage III Microcytic anemia Plan Pain control ( Dilaudid and [place] ) Not for surgical intervention at this point ( per orthopedic surgeon) Continue with sling Pendulum exercises when symptoms improve Continue with sling as needed Follow up as orthopedic outpatient in three weeks with new x-rays Re-consulted Orthopedic due to persistent pain Orthopedic recommended makes a relaxant, adequate pain medication, use of Tylenol at night and no NSAIDs. Code status: Full Goal of care discussed for more than 25 minutes Case and plan discussed with Dr. Rodriguez Plan discussed with: Patient My Orders My Orders Orders - LUIGI ALCARAZ Procedure Category Date Status Time R Wrist 2 View Xray XY 07/03/24 Resulted 09:56 * Orthopedic Consult CONS 07/03/24 Transmitted 13:56 Right Upper Ext. US 07/03/24 Resulted 13:56 Date of Service: Jul 03, 2024 Billing Provider: HARIS RODRIGUEZ MD Common Visit Codes: [id number] INP/OBS CARE(HIGH) LUIGI ALCARAZ Jul 03, 2024 16:54 HARIS RODRIGUEZ MD Jul 03, 2024 19:29
[2024-07-04 01:00] VITALS: BP 139/53; PULSE 71; RESP 18; TEMP 98.4; O2SAT 97
[2024-07-04 05:00] VITALS: BP 110/62; PULSE 67; RESP 17; TEMP 98.4; O2SAT 96
[2024-07-04 07:09] LABS: Anion Gap 8 (5-15); Carbon Dioxide 24 mmol/L (20-31); Chloride 106 mmol/L (98-107); Potassium 4.3 mmol/L (3.5-5.1); Sodium 138 mmol/L (136-145)
[2024-07-04 07:10] LABS: Calcium 9.2 mg/dL (8.7-10.4)
--- NOTE | 2024-07-04 07:12 | ECG ---
[facility] Test Date: 2024-06-30 Test Time: 17:33:11 Pat Name: BARI ROSAS Department: ER Room: 0247 A Gender: M Radio Commentator: GLENNA : 1950 Requested By: YULISA SADLER Order Number: [id number] Reading MD: Alexsander Dee Measurements Intervals [place] Rate: 68 P: -26 [place]: 148 QRS: -18 QRSD: 105 T: 2 QT: 420 QTc: 447 Interpretive Statements Sinus rhythm Abnormal R-wave progression, late transition LVH with secondary repolarization abnormality Electronically Signed On 07-04-2024 9:45:48 PST by Alexsander Dee Please click the below link to view image of tracing.
[2024-07-04 07:16] LABS: Blood Urea Nitrogen 18 mg/dL (9-23)
[2024-07-04 07:17] LABS: Glucose 112 mg/dL (74-106)
[2024-07-04 08:50] VITALS: BP 150/87; PULSE 107; RESP 20; TEMP 98; O2SAT 96
[2024-07-04] MEDS ORDERED: HYDR-4798 PO (11:25)
--- NOTE | 2024-07-04 11:40 | DVHDSRES ---
Discharge Summary Date of Admission Resident Creating Document: LUIGI ALCARAZ RESIDENT Jun 30, 2024 at 19:26 Date of Discharge: Jul 04, 2024 Admitting Diagnosis Right humeral fracture Labs/Diagnostic Data: Laboratory Results Test 07/04/24 06:10 07/02/24 06:25 06/30/24 19:50 Sodium Level 138 mmol/L (136-145) Potassium Level 4.3 mmol/L (3.5-5.1) Chloride Level 106 mmol/L (98-107) Carbon Dioxide Level 24 mmol/L (20-31) Anion Gap 8 (5-15) Blood Urea Nitrogen 18 mg/dL (9-23) Creatinine 1.20 mg/dL (0.700-1.30) Glomerular Filtration Rate Calc 63 mL/min (>90) BUN/Creatinine Ratio 15.0 (10.0-20.0) Serum Glucose 112 mg/dL (74-106) Calcium Level 9.2 mg/dL (8.7-10.4) White Blood Count 8.8 10^3/uL (4.4-10.8) Red Blood Count 4.53 10^6/uL (4.5-5.90) Hemoglobin 10.6 g/dL (13.5-17.5) Hematocrit 33.4 % (41.0-53.0) Mean Corpuscular Volume 73.7 fL (80.0-100.0) Mean Corpuscular Hemoglobin 23.4 pg (28.0-32.0) Mean Corpuscular Hemoglobin Concent 31.7 g/dL (32.0-36.0) Red Cell Distribution Width 17.5 % (11.8-14.3) Platelet Count 197 10^3/uL (140-450) Mean Platelet Volume 8.3 fL (6.9-10.8) Neutrophils (%) (Auto) 72.6 % (37.0-80.0) Lymphocytes (%) (Auto) 12.6 % (10.0-50.0) Monocytes (%) (Auto) 13.7 % (0.0-12.0) Eosinophils (%) (Auto) 0.8 % (0.0-7.0) Basophils (%) (Auto) 0.3 % (0.0-2.0) Neutrophils # (Auto) 6.4 10 ^3/uL (1.6-8.6) Lymphocytes # (Auto) 1.1 10 ^3/uL (0.4-5.4) Monocytes # (Auto) 1.2 10 ^3/uL (0-1.3) Eosinophils # (Auto) 0.1 10 ^3/uL (0-0.8) Basophils # (Auto) 0 10 ^3/uL (0-0.2) Nucleated Red Blood Cells 0.1 % Total Bilirubin 1.0 mg/dL (0.2-1.0) Aspartate Amino Transferase (AST) 16 U/L (13-40) Alanine Aminotransferase (ALT) 17 U/L (7-40) Alkaline Phosphatase 71 U/L (46-116) Total Protein 6.6 g/dL (5.7-8.2) Albumin 4.1 g/dL (3.2-4.8) Prothrombin Time 11.5 sec (9.3-11.8) Prothrombin Time INR 1.09 (0.9-1.15) Activated Partial Thromboplast Time 26.5 SEC (24.5-34.5) Other Laboratory Tests 07/04/24 06:10 07/02/24 06:25 Brief Hx & Hospital Course: [id number] with a past medical history of Hypertension, CHF, CAD who presented to the ED with a right arm pain after fall. According to patient, he climbed the ladder to trim the trees. He fell and landed on his right upper arm and shoulder. Patient did not hit his head on the concrete and didn't loose consciousness. Initial vitals reveal temperature 98.1 HR: 68 RR: 20 and BP: 113/74. blood work revealed WBC of 10.9, cr 1.49. X-ray of the upper extremity showed displaced and comminuted fracture involving the proximal humeral metaphysis and lateral aspect of the proximal humeral head. Patient was initial on morphine but did not seemed much improvement. Thus replaced that with Dilaudid 1 mg q4hr prn. Vitals are stable and blood work is good with Cr is trending down 1.49--> 1.22. On day 2 patient continued to feel excruciating pain in the right upper extremity and patient unable to move his digits. He was able to move his index finger but not the others and unable to make a fist. Also his right wrist was swollen which is new. A X-ray of the wrist and and ultrasound x-ray did not reveal any fractures or fluid accumulations. I re-consult orthopedic and spoke with the attending physician and the PA. Patient was seen by the orthopedics team, evaluated and reviewed the x-ray. He said there is no real concerns. Pain is mainly from the muscle spasm and the fracture has not dislocated.. He advised that patient be maintained on adequate pain control, muscle relaxant and Tylenol at night. NO NSAIDS. Patient is to follow up with them a week post discharge. Will discharge tomorrow. Examination General Appearance: Alert, Oriented X3, Cooperative; mild-moderate pain HEENT: Atraumatic, PERRLA, EOMI, Mucous membrane moist/pink Respiratory: Clear to auscultation, Normal air movement Cardiovascular: Regular rate, Normal S1, Normal S2, No murmurs, no chest wall tenderness Abdominal: NO distention, no tenderness, bowel sounds present, no scars noted Extremities: Right upper extremity in a sling No clubbing, No cyanosis, No edema, Normal pulses, No tenderness/swelling. Sensation intact, motor function is intact.Tender to palpation proximal humerus. Range of motion limited by guarding Skin: No rashes, No breakdown, No significant lesion Neuro: Normal gait, Normal speech, Strength at 5/5 X4 ext, Normal tone, Sensation intact, Cranial nerves 3-12 NL, Reflexes 2+ Psych/Mental Status: Mental status NL, Mood NL assessment Right proximal humerus surgical neck fracture Hypertension CAD status post PCI Chronic HFrEF Acute kidny injury, Cr trending down ( 1.49-->1.22) on CKD stage III Microcytic anemia Discharge Plan Discharge home Pain control ( Henderson 10/325 q4hrs ) cyclobenzaprine 10 q8hrs for 7 days Continue with sling Pendulum exercises when symptoms improve Follow up as orthopedic outpatient in week with new x-rays Orthopedic recommended makes a relaxant, adequate pain medication, use of Tylenol at night and no NSAIDs. Case and plan discussed with Dr. Rodriguez Consults/Reason for consult Right proximal humerus fracture Condition at Discharge: Critical Final Diagnosis/Problems List Right proximal humerus surgical neck fracture Hypertension CAD status post PCI Chronic HFrEF Acute kidny injury, Cr trending down ( 1.49-->1.22) on CKD stage III Microcytic anemia Discharge Disposition: Home Discharge Instruct/Medications Diet: Cardiac 2g Na,low cholest Activity: Light activity Activity comment: As can tolerate Follow Up/Referral: 1 Week at orthopedi Medications: Henderson home medications Discharge Statement: "Patient was advised to return to the ER or call 911 if any headaches, dizziness, shortness of breath, chest pain, abdominal pain, bleeding, fevers, or worsening of medical condition. Patient was counseled about treatment plan, medications, possible side effects, patientverbalized understanding. All questions were answered to the best of my ability. This discharge took greater then 30 minutes in planning, reviewing documentation, counseling the patient, and discussing with other team members." ASSESSMENT ASSESSMENT Assessment Right proximal humerus surgical neck fracture Hypertension CAD status post PCI Chronic HFrEF Acute kidny injury, Cr trending down ( 1.49-->1.22) on CKD stage III Microcytic anemia Date of Service: Jul 04, 2024 Billing Provider: HARIS RODRIGUEZ MD Common Visit Codes: [id number] INP/OBS CARE(HIGH) LUIGI ALCARAZ RESIDENT Jul 04, 2024 11:40 HARIS RODRIGUEZ MD Jul 05, 2024 04:54
[2024-07-04] MEDS ORDERED: CYCL-837 PO (12:27)
[2024-07-04 12:45] VITALS: BP 123/60; PULSE 81; RESP 18; TEMP 99; O2SAT 97
[2024-07-04 14:13] VITALS: BP 149/62; PULSE 74; RESP 16; TEMP 98; O2SAT 96
[2024-07-04 21:00] VITALS: BP 135/90; PULSE 57; RESP 20; TEMP 97.5; O2SAT 98
== END 2024-07-04 15:07 | disposition home or self-care (01) | DRG 563 ==
LOC: ER 12:58 → OVERFLOW 19:26 → EAST 23:24
PROVIDERS: ADMIT Internal Medicine; ATTEND Student in an Organized Health Care Education/Training Program
DX: S42.211A Unspecified displaced fracture of surgical neck of right humerus, initial encounter for closed fracture (principal); N17.9 Acute kidney failure, unspecified; I13.0 Hypertensive heart and chronic kidney disease with heart failure and stage 1 through stage 4 chronic kidney disease, or unspecified chronic kidney disease; I50.22 Chronic systolic (congestive) heart failure; I25.10 Atherosclerotic heart disease of native coronary artery without angina pectoris; N18.30 Chronic kidney disease, stage 3 unspecified; E78.5 Hyperlipidemia, unspecified; D50.9 Iron deficiency anemia, unspecified; W11.XXXA Fall on and from ladder, initial encounter; Z88.1 Allergy status to other antibiotic agents; Z88.8 Allergy status to other drugs, medicaments and biological substances; Z79.899 Other long term (current) drug therapy; Z79.2 Long term (current) use of antibiotics; Z79.82 Long term (current) use of aspirin; Y93.89 Activity, other specified; Y92.89 Other specified places as the place of occurrence of the external cause; Y99.8 Other external cause status; Z82.49 Family history of ischemic heart disease and other diseases of the circulatory system; Z83.3 Family history of diabetes mellitus
CPT/HCPCS: 36415; 70450; 73030; 73060; 73100; 76881; 80048; 80053; 85025; 85610; 85730; 93005; 96374; 96375; G0378; J2405

== ENCOUNTER → 2024-07-17 | Outpatient (CLI) | payer OTHER ==
[~2024-07-17] MED LIST changes: -CARV3.1240 PO; +CYCL-837 PO; +HYDR-4798 PO; +METO-289 PO
[2024-07-17 12:38] LABS: Urine Bacteria None Seen /hpf (None Seen)
[2024-07-17 12:43] LABS: Urine Blood Negative /uL (Negative); Urine Clarity Clear (Clear); Urine Color Yellow (Yellow); Urine Protein, UAD Negative (Negative); Urine Specific Gravity 1.023 (1.001-1.035); Urine Squamous Epithelial Cell None Seen /hpf (<5); Urine Urobilinogen Normal (Negative); Urine WBC 1 /HPF (0-3)
== END | disposition home or self-care (01) ==
LOC: LAB 12:34
PROVIDERS: ATTEND Internal Medicine
DX: I13.0 Hypertensive heart and chronic kidney disease with heart failure and stage 1 through stage 4 chronic kidney disease, or unspecified chronic kidney disease (principal); I50.9 Heart failure, unspecified; N18.9 Chronic kidney disease, unspecified
CPT/HCPCS: 81001

== ENCOUNTER → 2024-08-08 | Outpatient (CLI) | payer OTHER ==
[2024-08-08 11:26] LABS: Urine Bacteria None Seen /hpf (None Seen)
[2024-08-08 11:53] LABS: Basophils # (auto) 0 10 ^3/uL (0-0.2); Eosinophils # (auto) 0.1 10 ^3/uL (0-0.8); Lymphocytes # (auto) 1.1 10 ^3/uL (0.4-5.4); Mean Corpuscular Volume 74.9 fL (80.0-100.0); Monocytes # (auto) 0.4 10 ^3/uL (0-1.3); Red Blood Cells 4.96 10^6/uL (4.5-5.90)
[2024-08-08 11:55] LABS: Basophils % (auto) 0.7 % (0.0-2.0); Eosinophils % (auto) 1.6 % (0.0-7.0); Hematocrit 37.1 % (41.0-53.0); Hemoglobin 11.5 g/dL (13.5-17.5); Lymphocytes % (auto) 22.8 % (10.0-50.0); Mean Corpuscular Hemoglobin 23.3 pg (28.0-32.0); Mean Corpuscular Hgb Conc. 31.1 g/dL (32.0-36.0); Monocytes % (auto) 8.9 % (0.0-12.0); Neutrophils # (auto) 3.1 10 ^3/uL (1.6-8.6); Platelet Count (auto) 223 10^3/uL (140-450); Red Cell Distribution Width 19.8 % (11.8-14.3); White Blood Cell 4.7 10^3/uL (4.4-10.8)
[2024-08-08 11:59] LABS: Urine Blood Negative /uL (Negative); Urine Clarity Clear (Clear); Urine Color Light-Yellow (Yellow); Urine Protein, UAD Negative (Negative); Urine Specific Gravity 1.016 (1.001-1.035); Urine Squamous Epithelial Cell None Seen /hpf (<5); Urine Urobilinogen Normal (Negative); Urine pH 5.5 (5.0-9.0)
[2024-08-08 12:02] LABS: Urine WBC < 1 /HPF (0-3)
[2024-08-08 12:23] LABS: Alanine Aminotransferase 25 U/L (7-40); Albumin 4.5 g/dL (3.2-4.8); Alkaline Phosphatase 86 U/L (46-116); Anion Gap 8 (5-15); Aspartate Aminotransferase 20 U/L (13-40); BUN/Creatinine Ratio 15.4 (10.0-20.0); Blood Urea Nitrogen 20 mg/dL (9-23); Calcium 9.8 mg/dL (8.7-10.4); Carbon Dioxide 28 mmol/L (20-31); Chloride 106 mmol/L (98-107); Glucose 94 mg/dL (74-106); Potassium 4.2 mmol/L (3.5-5.1); Sodium 142 mmol/L (136-145); Total Protein 7.2 g/dL (5.7-8.2)
[2024-08-08 12:24] LABS: Bilirubin, Total 0.6 mg/dL (0.2-1.0)
== END | disposition home or self-care (01) ==
LOC: LAB 11:09
PROVIDERS: ATTEND Internal Medicine
DX: S42.001A Fracture of unspecified part of right clavicle, initial encounter for closed fracture (principal); Z00.00 Encounter for general adult medical examination without abnormal findings; X58.XXXA Exposure to other specified factors, initial encounter; Y93.89 Activity, other specified; Y92.89 Other specified places as the place of occurrence of the external cause; Y99.8 Other external cause status
CPT/HCPCS: 36415; 80053; 81001; 82306; 84153; 85025

== ENCOUNTER → 2024-09-30 | Outpatient (CLI) | payer OTHER ==
[2024-09-30 11:27] LABS: Basophils # (auto) 0 10 ^3/uL (0-0.2); Basophils % (auto) 0.5 % (0.0-2.0); Eosinophils # (auto) 0.1 10 ^3/uL (0-0.8); Hemoglobin 12.4 g/dL (13.5-17.5); Monocytes # (auto) 0.4 10 ^3/uL (0-1.3)
[2024-09-30 11:29] LABS: Eosinophils % (auto) 1.3 % (0.0-7.0); Hematocrit 40.1 % (41.0-53.0); Mean Corpuscular Hemoglobin 23.5 pg (28.0-32.0); Mean Corpuscular Volume 75.7 fL (80.0-100.0); Monocytes % (auto) 8.3 % (0.0-12.0); Neutrophils # (auto) 3.4 10 ^3/uL (1.6-8.6); Neutrophils % (auto) 69.9 % (37.0-80.0); Nucleated Red Blood Cells % 0.1 %; Platelet Count (auto) 199 10^3/uL (140-450); Red Cell Distribution Width 18.8 % (11.8-14.3); White Blood Cell 4.9 10^3/uL (4.4-10.8)
[2024-09-30 11:48] LABS: Creatinine, Urine 100.87 mg/dL (30.0-125.0); Urine Protein/Creatinine Ratio 0.06
[2024-09-30 11:50] LABS: Protein, Urine < 6.0 mg/dL (1-14)
[2024-09-30 12:19] LABS: Anion Gap 7 (5-15); Blood Urea Nitrogen 18 mg/dL (9-23); Carbon Dioxide 25 mmol/L (20-31); Chloride 110 mmol/L (98-107); Glucose 106 mg/dL (74-106); Potassium 4.4 mmol/L (3.5-5.1); Sodium 142 mmol/L (136-145)
[2024-09-30 12:20] LABS: Alanine Aminotransferase 26 U/L (7-40); Albumin 4.5 g/dL (3.2-4.8); Alkaline Phosphatase 74 U/L (46-116); Aspartate Aminotransferase 17 U/L (13-40); BUN/Creatinine Ratio 14.8 (10.0-20.0); Bilirubin, Total 0.6 mg/dL (0.2-1.0); Calcium 9.5 mg/dL (8.7-10.4)
== END | disposition home or self-care (01) ==
LOC: LAB 10:54
PROVIDERS: ATTEND Internal Medicine
DX: E11.22 Type 2 diabetes mellitus with diabetic chronic kidney disease (principal); N18.30 Chronic kidney disease, stage 3 unspecified; N39.0 Urinary tract infection, site not specified; E55.9 Vitamin D deficiency, unspecified; E21.3 Hyperparathyroidism, unspecified; D63.1 Anemia in chronic kidney disease; M10.9 Gout, unspecified; R80.9 Proteinuria, unspecified
CPT/HCPCS: 36415; 80053; 82043; 82306; 82570; 83970; 84156; 84550; 85025

== ENCOUNTER → 2024-10-14 | Outpatient (CLI) | payer OTHER ==
[2024-10-14 09:52] LABS: Potassium 4.3 mmol/L (3.5-5.1); Sodium 142 mmol/L (136-145)
[2024-10-14 09:53] LABS: Anion Gap 9 (5-15); Calcium 9.9 mg/dL (8.7-10.4); Carbon Dioxide 25 mmol/L (20-31)
[2024-10-14 09:54] LABS: Chloride 108 mmol/L (98-107)
[2024-10-14 10:00] LABS: Blood Urea Nitrogen 27 mg/dL (9-23); Glucose 128 mg/dL (74-106)
== END | disposition home or self-care (01) ==
LOC: LAB 09:13
PROVIDERS: ATTEND Internal Medicine
DX: I13.0 Hypertensive heart and chronic kidney disease with heart failure and stage 1 through stage 4 chronic kidney disease, or unspecified chronic kidney disease (principal); N18.9 Chronic kidney disease, unspecified; I50.9 Heart failure, unspecified; I25.9 Chronic ischemic heart disease, unspecified
CPT/HCPCS: 36415; 80048

== ENCOUNTER 2024-11-04 08:10 | Outpatient (CLI) | payer OTHER ==
[~2024-11-04] VITALS: Ht 172.7 cm; Wt 72.6 kg
[2024-11-04] MEDS: REGADENOSON 0.4 MG/5 ML SYRG IV ONE ×2 (09:58)
--- NOTE | 2024-11-04 14:31 | DVHSR ---
APPROVED REPORT Exam: Nuclear Stress Test BMI: 0 Stress Test Details HR Max Heart Rate (APMHR): 144.421562 bpm Target HR (85% APMHR): 122.442916 bpm BP ECG Stress ECG Conclusion dilated LV lvef 40% infero and inferolateral wall reversible defect noted suspcious for ischemia apical fixed defect noted NM EXAM: Myocardial Perfusion REST/STRESS Imaging Protocol: Rest Tc-99m/Stress Tc-99m 1 day Resting Data Rest SPECT myocardial perfusion imaging was performed in supine position 60 minutes following the int ravenous injection of 10.0 mCi of Tc-99m Sestamibi. Time of rest injection: 08:40 Date: 11/04/2024 Time of rest imagin:40 Date: 11/04/2024 Pharmacologic Stress Pharmacologic stress test was performed by injecting Regadenoson 0.4 mg IV push followed by the intra venous injection of 32.3 mCi of Tc-99m Sestamibi. Time of stress injection: 09:55 Date: 11/04/2024 Time of stress imagin:55 Date: 11/04/2024 Administration Route: IV Administration Site: Left Arm Gated Stress SPECT was performed 60 minutes after stress injection. The images were gated to evaluate regional wall motion and calculate left ventricular ejection fracti on. Stress only was performed in the Supine position. Nuclear Conclusion Nuclear Findings: positive for ischemia dilated LV lvef 40% infero and inferolateral wall reversible defect noted suspcious for ischemia apical fixed defect noted
== END 2024-11-04 17:00 | disposition home or self-care (01) ==
LOC: XYW 08:10
PROVIDERS: ATTEND Internal Medicine
DX: Z01.810 Encounter for preprocedural cardiovascular examination (principal); I25.9 Chronic ischemic heart disease, unspecified; K92.1 Melena; D64.9 Anemia, unspecified; I25.10 Atherosclerotic heart disease of native coronary artery without angina pectoris; Z91.81 History of falling
CPT/HCPCS: 78452; 93017; A9500; J2785

== ENCOUNTER 2024-12-03 09:25 | Outpatient (CLI) | payer OTHER ==
[2024-12-03 10:37] LABS: Hemoglobin 13.2 g/dL (13.5-17.5)
[2024-12-03 10:40] LABS: Hematocrit 40.7 % (41.0-53.0); Mean Corpuscular Hemoglobin 26.1 pg (28.0-32.0); Mean Corpuscular Volume 80.2 fL (80.0-100.0); Nucleated Red Blood Cells % 0.1 %
[2024-12-03 10:53] LABS: Alanine Aminotransferase 26 U/L (7-40); Alkaline Phosphatase 66 U/L (46-116); Anion Gap 8 (5-15); BUN/Creatinine Ratio 15.0 (10.0-20.0); Blood Urea Nitrogen 20 mg/dL (9-23); Calcium 9.8 mg/dL (8.7-10.4); Carbon Dioxide 26 mmol/L (20-31); Glucose 105 mg/dL (74-106); Potassium 4.6 mmol/L (3.5-5.1); Sodium 143 mmol/L (136-145); Total Protein 6.5 g/dL (5.7-8.2)
[2024-12-03 10:54] LABS: Albumin 4.2 g/dL (3.2-4.8); Chloride 109 mmol/L (98-107)
[2024-12-03 10:55] LABS: Bilirubin, Total 0.8 mg/dL (0.2-1.0)
== END 2024-12-03 19:32 | disposition home or self-care (01) ==
LOC: LAB 09:25
PROVIDERS: ATTEND Internal Medicine
DX: I25.10 Atherosclerotic heart disease of native coronary artery without angina pectoris (principal)
CPT/HCPCS: 36415; 80053; 85025

== ENCOUNTER 2024-12-25 10:56 | Day surgery (SDC) | payer OTHER ==
[2024-12-20 10:39] LABS: Hematocrit 43.1 % (41.0-53.0); Hemoglobin 14.2 g/dL (13.5-17.5); Mean Corpuscular Hemoglobin 27.4 pg (28.0-32.0); Mean Corpuscular Volume 83.0 fL (80.0-100.0); Nucleated Red Blood Cells % 0.2 %
[2024-12-20 10:48] LABS: INR 0.99 (0.9-1.15); Partial Thromboplastin Time 27.9 SEC (24.5-34.5); Prothrombin Time 10.5 sec (9.3-11.8)
[2024-12-20 10:55] LABS: Alanine Aminotransferase 24 U/L (7-40); Albumin 4.5 g/dL (3.2-4.8); Alkaline Phosphatase 77 U/L (46-116); Anion Gap 11 (5-15); BUN/Creatinine Ratio 13.5 (10.0-20.0); Blood Urea Nitrogen 17 mg/dL (9-23); Calcium 9.5 mg/dL (8.7-10.4); Carbon Dioxide 25 mmol/L (20-31); Chloride 107 mmol/L (98-107); Glucose 85 mg/dL (74-106); Potassium 4.3 mmol/L (3.5-5.1); Sodium 143 mmol/L (136-145); Total Protein 6.7 g/dL (5.7-8.2)
[2024-12-20 10:56] LABS: Bilirubin, Total 0.5 mg/dL (0.2-1.0)
[~2024-12-25] VITALS: Ht 172.7 cm; Wt 74.4 kg
[~2024-12-25 10:56] MED LIST changes: -ASPI81CH43 PO; -CYCL-837 PO; +FERR325T24 PO; +FOLI-119 PO; -HYDR-4798 PO; -MULT-694 OR; +MULT-694 PO
[2024-12-25] MEDS: MIDAZOLAM HCL 2MG/2ML 2ml VIAL (1mg/ml) ONE (13:43)
[2024-12-25] MEDS: ANGIOMAX 250 MG VIAL IV ONE (13:43)
[2024-12-25] MEDS: fentaNYL CITRATE 100 MCG/2 ML VL ONE (13:43)
[2024-12-25] MEDS: VERAPAMIL 2.5MG/ML INJ 2ML VIAL IV ONE (13:43)
[2024-12-25] MEDS: SODIUM CHL 0.9% 0 ML ONE (13:43)
[2024-12-25] MEDS: HEPARIN SODIUM (PORCINE) 5000 UNITS/ML 1ML VIAL ONE (13:43)
[2024-12-25] MEDS: LIDOCAINE 2%HCL (LOCAL ANESTH.) INJ 20ML MDV ONE (13:44)
[2024-12-25] MEDS: IODIXANOL 320MG/ML 100ML BTL IV ONE (13:44)
--- NOTE | 2024-12-25 14:41 | DVHOP2 ---
Operative Report - 2 Report Details Date: 12/25/24 Preop Diagnosis: CAD Postop Diagnosis: MILD CAD. MILD CARDIOMYOPATHY. Surgeon: Nathan Dee MD Anesthesiologist: CONSCIOUS SEDATION Anesthesia: Mac, Local Consent: The patient was informed of the risks and benefits of the procedure. These include but are not limited to complications of anesthesia, postoperative infection, incomplete relief of symptoms, recurrence of symptoms, damage to blood vessels, nerves and tendons, deep venous thrombosis, pulmonary embolism and possible need for repeat surgery in the future. Complications: NO COMPLICATIONS Findings: MILD CAD. CARDIOMYOPATHY. Indications for Surgery: CHEST PAIN Name of Procedure Performed BILATERAL CINE CORONARY ANGIOGRAPHY. LEFT VENTRICULOGRAPHY. Procedure Details Procedure Details: PRIOR LOCAL ANESTHESIA WITH 2% LIDOCAINE TO THE RIGHT WRIST AND FULL INFORMED CONSENT OBTAINED THE PATIENT WAS PREPPED AND DRAPED IN USUAL FASHION FOLLOWED BY PLACEMENT OF A SIX KITTITIAN SHEATH INTO THE RIGHT RADIAL ARTERY THROUGH WHICH SIX KITTITIAN AYANA CATHETERS WERE USED TO CANNULATE BOTH RIGHT AND LEFT CORONARY OSTIUM. A MULTIPURPOSE CATHETER WAS USED FOR VENTRICULOGRAPHY WITHOUT COMPLICATIONS. HEMODYNAMICS: AORTIC BLOOD PRESSURE WAS 110/70. END-DIASTOLIC PRESSURE WAS 10. NO GRADIENT ACROSS THE AORTIC VALVE ON PULLBACK. CORONARY ANATOMY THE RCA IS LARGE AND NORMAL. PDA AND POSTEROLATERAL BRANCHES ARE NORMAL. AN ABERRANT CIRCUMFLEX COMES OFF THE RCA. IT APPEARS TO TRAVEL BEHIND THE AORTA.THE CIRCUMFLEX IS FREE OF SIGNIFICANT DISEASE. THE LEFT ANTERIOR DESCENDING CORONARY ARTERY IS LARGE. IT HAS A STENT PROXIMALLY. THERE IS NO IN STENT RESTENOSIS. THE DIAGONAL IS NORMAL. VENTRICULOGRAPHY IN THE HENRY PROJECTION SHOWS AN EF OF ABOUT 40% WITH GLOBAL HYPOKINESIS. MODERATELY ENLARGED LEFT VENTRICLE. IMPRESSION: NORMAL LEFT VENTRICULAR END-DIASTOLIC PRESSURE AT REST WITH DECREASED LEFT VENTRICULAR EJECTION FRACTION. NO SIGNIFICANT CAD PROGRESSION. PATENT STENT OF THE LAD. ABERRANT ORIGIN OF THE CIRCUMFLEX FROM THE RIGHT CORONARY CUSP. RECOMMENDATIONS: MEDICAL THERAPY IS WARRANTED CONTINUE WITH RISK FACTOR MODIFICATION. Condition Good Disposition Home Date of Service: Dec 25, 2024 Billing Provider: NATHAN DEE Sr., MD Cardiology Common Codes: [id number] INP/OBS CARE (High) Cardiology Procedure Codes: 85924-BBFC HEART CATH W/INTRA INJ NATHAN DEE Sr., MD Dec 25, 2024 14:41
[2024-12-25 14:46] VITALS: BP 121/56; PULSE 68; RESP 15; TEMP 98.5; O2SAT 97
[2024-12-25 15:01] VITALS: BP 122/58; PULSE 62; RESP 18; O2SAT 97
[2024-12-25 15:16] VITALS: BP 111/56; PULSE 66; RESP 17; O2SAT 95
[2024-12-25 15:31] VITALS: BP 110/58; PULSE 64; RESP 16; O2SAT 96
[2024-12-25 16:00] VITALS: BP 115/62; RESP 15; O2SAT 94
[2024-12-25] MEDS ORDERED: CYAN250T12 PO (16:17)
[2024-12-25] MEDS ORDERED: CHOL20006 PO (16:17)
[2024-12-25 16:48] VITALS: BP 121/64; PULSE 59; RESP 17; O2SAT 97
== END 2024-12-25 17:10 | disposition home or self-care (01) ==
LOC: CATH 10:56
PROVIDERS: ATTEND Internal Medicine
DX: I25.10 Atherosclerotic heart disease of native coronary artery without angina pectoris (principal); I42.9 Cardiomyopathy, unspecified; R94.39 Abnormal result of other cardiovascular function study; I50.9 Heart failure, unspecified; Z79.899 Other long term (current) drug therapy; Z95.5 Presence of coronary angioplasty implant and graft; Z87.01 Personal history of pneumonia (recurrent); Z88.8 Allergy status to other drugs, medicaments and biological substances; Z82.49 Family history of ischemic heart disease and other diseases of the circulatory system; Z83.3 Family history of diabetes mellitus
CPT/HCPCS: 36415; 80053; 85025; 85610; 85730; 93458; C1769; C1887; C1894; J1644; J2250; J3010; Q9967; 99152

== ENCOUNTER 2025-01-07 15:14 | Observation (INO) | payer OTHER ==
[~2025-01-07] VITALS: Ht 172.7 cm; Wt 75.0 kg
[~2025-01-07 15:14] MED LIST changes: -CHOL200029 PO; +CHOL20006 PO; -CYAN250L PO; +CYAN250T12 PO
[2025-01-07] MEDS ORDERED: MORPHINE SULFATE INJ 2 MG/ml SYRG IV PRN (16:45)
[2025-01-07] MEDS ORDERED: NITROGLYCERIN 0.4 MG SL TAB SL PRN (16:45)
[2025-01-07] MEDS ORDERED: MAALOX PLUS or MAALOX 30 ML PO PRN (16:45)
[2025-01-07] MEDS ORDERED: LORazepam 0.5 MG TAB PO PRN (16:45)
[2025-01-07] MEDS ORDERED: ONDANSETRON HCL 4 MG/2 ML VIAL IV PRN (16:45)
[2025-01-07] MEDS ORDERED: ACETAMINOPHEN 325 MG TAB PO PRN (16:45)
[2025-01-07] MEDS ORDERED: HYDROcodone-ACET 5/325MG TAB PO PRN (16:45)
--- NOTE | 2025-01-07 17:21 | DVHINCON2 ---
Date Seen: Jan 07, 2025 Referring Physician MD Feliciano Reason for Consultation Afib History of Present Illness This is a 74-year-old male patient who presents to his primary care physician's office for a routine follow up. While in the office, the patient underwent a twelve lead electrocardiogram which revealed atrial fibrillation with rapid ventricular response. The patient denies any symptoms such as chest pain, palpitations, or shortness of breath. The patient was directly admitted to the hospital for further evaluation. Cardiology has been consulted for atrial fibrillation. At the time of assessment, the patient is not connected to any cardiac monitors. No blood work available at time of assessment. Significant past medical history includes coronary artery disease status post PTCA X 1 JARRETT (on Plavix), congestive heart failure, atrial fibrillation (on Eliquis), hypertension, dyslipidemia, and BPH. The patient recently underwent a coronary angiogram with left heart catheterization on 12/25/2024 in which no catheter based intervention was needed at that time. Of note, the patient reports that he has been off of his Eliquis and Plavix therapy for approximately one month pending an upcoming colonoscopy. Past Medical History Past medical history reviewed. No other significant than mentioned above. Past Surgical History Multiple hernia repairs Family History: Family history: Cardiovascular disease G8 FATHER Family history: Diabetes mellitus G8 FATHER Family history: Hypertension G8 FATHER Family History Family history reviewed. Social History Denies the use of tobacco, alcohol or illicit drugs. Allergies: Coded Allergies: Cefuroxime (Verified Allergy, Severe, 12/20/24) Amiodarone (Verified Allergy, Unknown, SWELLING, RASH, 12/20/24) Uncoded Allergies: CEFTON (Allergy, Severe, 07/01/14) Home Meds Reported Medications Cyanocobalamin (B-12) 250 Mcg Tab, 1 TAB PO DAILY for SUPPLEMENT 12/25/24 Cholecalciferol (Vitamin D3) 2,000 Unit Cap, 1 CAP PO DAILY for SUPPLEMENT 12/25/24 Folic Acid (Folic Acid) 1 Mg Tab, 1 TAB PO BID for SUPPLEMENT 12/20/24 Ferrous Sulfate (Ferrous Sulfate) 325 Mg Tab, 1 TAB PO BIDWM for ANEMIA 12/20/24 Metoprolol Succinate (Metoprolol Succinate Er) 50 Mg Tab, 1 TAB PO QAM for HYPERTENSION 06/30/24 Multiple Vitamins W/ Minerals (SENTRY SENIOR) Senior Tab, 1 TAB PO 3X/WEEK for SUPPLEMENT 02/21/24 Tocopheryl Acetate, Dl-Alpha (Vitamin E) 180 Mg Cap, 1 CAP PO 4X/WEEK for SUPPLEMENT 02/21/24 Ascorbic Acid (VITAMIN C TABLET) 500 Mg Tb, 1 TAB PO 4X/WEEK for SUPPLEMENT 02/21/24 Apixaban Base (ELIQUIS) 5 Mg Tab, 1 TAB PO BID for ATRIAL FIBRILLATION 02/19/24 Hydralazine Hcl (Hydralazine Hcl) 25 Mg Tab, 1 TAB PO BID for HYPERTENSION 02/19/24 Isosorbide Mononitrate (Isosorbide Mononitrate Er) 30 Mg Tab, 1 TAB PO QAM for ANGINA 02/19/24 Lisinopril (Lisinopril) 10 Mg Tab, 1 TAB PO QAM for HYPERTENSION 02/19/24 Atorvastatin Calcium (ATORVASTATIN CALCIUM) 20 Mg Tab, 1 TAB PO QPM for HIGH CHOLESTEROL 02/10/20 Clopidogrel Bisulfate (CLOPIDOGREL) 75 Mg Tab, 1 TAB PO DAILY for CARDIAC STENTS 02/10/20 Spironolactone (Spironolactone) 25 Mg Tab, 0.5 TAB PO DAILY for FLUID RETENTION 02/10/20 Home Meds Home medications reviewed. Current Medications Current Medications Medications (Trade) Dose Ordered Sig/Obdulio Route PRN Reason Start Time Stop Time Status Last Admin Sodium Chloride (Saline Lock Ns) 10 ml Q8HR IV 01/07/25 22:00 UNV Lorazepam (Ativan Tablet) 0.5 mg Q6HP PRN PO ANXIETY 01/07/25 16:45 UNV Al Hydrox/Mg Hydrox/Simethicone (Maalox Plus) 30 ml Q6HP PRN PO FOR STOMACH DISTRESS 01/07/25 16:45 UNV Acetaminophen (Tylenol Tablet) 650 mg Q6HP PRN PO PAIN SCALE 1-3 OR TEMP>100.4 01/07/25 16:45 UNV Acetaminophen/ Hydrocodone Bitart ([place] 5/325MG Tab) 1 tab Q4HP PRN PO MODERATE PAIN (4-6 PAIN SCALE) 01/07/25 16:45 UNV Ondansetron HCl (Zofran) 4 mg Q4HP PRN IV NAUSEA / VOMITING 01/07/25 16:45 UNV Nitroglycerin (Ntrostat Sublingual) 0.4 mg Q5MINP PRN SL FOR CHEST PAIN 01/07/25 16:45 UNV Morphine Sulfate 2 mg Q30M PRN IV FOR CHEST PAIN 01/07/25 16:45 UNV Review of Systems Constitutional: No symptom reported Ears, Nose, & Throat: No symptom reported Eyes: No symptom reported Neurological: No symptoms reported Pulmonary/Respiratory: No symptoms reported Cardiovascular: No symptom reported Gastrointestinal: No symptom reported Genitourinary: No symptom reported Musculoskeletal: No symptom reported Skin: No symptom reported Psychiatric: No symptom reported Endocrine: No symptom reported Hematologic/Lymphatic: No symptom reported Physical Exam General Appearance: Cooperative. Well-developed. Well-nourished. No acute distre ss. Pulmonary/Respiratory: Clear, bilateral breaths sounds. Cardiovascular/Chest: Regular rate and rhythm. Peripheral Pulses: 2+ Radial (R). 2+ Radial (L). 2+ Pedal (R). 2+ Pedal (L) Abdominal Exam: Normal bowel sounds. Ankle Exam: Negative ankle edema Lower extremities: Negative lower extremity edema Neuro/Mental Status: A/OX4, coherent. Thoughts/Psych: Normal thought pattern. Appropriate mood and affect. Good judgment and insight. Appearance: No acute distress. Skin Exam: Normal inspection. Normal color. Warm and dry. Assessment Atrial fibrillation with rapid ventricular response, now normal sinus rhythm (on Eliquis) Coronary artery disease status post PTCA x 1 JARRETT (on Plavix) Chronic HFrEF, NYHA class II Hypertension Dyslipidemia BPH Plan/Recommendation We will continue with the following plan/recommendations (Dr. Shelby): Patient seen and examined at bedside with . We will proceed with obtaining a transthoracic echocardiogram to evaluate cardiac function. The patient recently underwent a coronary angiogram with left heart catheterization in which ventriculography found an EF of approximately 40% with global hypokinesis. We will recommend to continue guideline directed medical therapy for CHF as tolerated and as renal function permits (currently awaiting blood work). [id number] VASc score: 5 points, HAS-BLED score: 2 points. Consider initiating therapeutic Lovenox if the patient has a stable hemoglobin and hematocrit level. The patient will also benefit from NOAC therapy upon discharge. After patient was taken to telemetry, a repeat 12 lead electrocardiogram was done and reveals the patient is now in normal sinus rhythm. Initiate home dose beta-ap. Monitor and replete electrolytes as needed, keep potassium greater than four and magnesium greater than two. Obtain labs: CBC, BMP, Magnesium, D-dimer and TSH. Further recommendations per clinical course and progression and pending lab results. Thank you for allowing us to care for this patient. Please call with any questions or concerns. Critical care time spent: 44 minutes This medical document was created using an electronic medical record system with voice recognition software and computerized dictation system. Although this document has been carefully reviewed, there might still be some phonetic and typographical errors. Occasional wrong-word or ``sound-alike substitutions may have occurred due to the inherent limitations of voice recognition software. These areas are purely typographical due to imperfections of the software programs and do not reflect any compromise in the patient's medical care. Please read the chart carefully and recognize, using context, where these substitutions have occurred. Plan discussed with: Patient NYHA Physical activity limitations: Class2(Slight)fatigue,sob (palpitatns, angina w activityv) Date of Service: Jan 07, 2025 Billing Provider: ELIDA HEBERT Cardiology Common Codes: [id number] INP/OBS CARE (High) Cardiology Consultation Codes: [id number] CONSULT <45MIN ELIDA HEBERT Jan 07, 2025 17:21
[2025-01-07 17:46] VITALS: PULSE 90; RESP 16; O2SAT 100
[2025-01-07 18:00] VITALS: BP 149/98; PULSE 90; RESP 16; TEMP 98.6; O2SAT 100
[2025-01-07 18:18] LABS: Hematocrit 48.6 % (41.0-53.0); Hemoglobin 16.2 g/dL (13.5-17.5); Mean Corpuscular Hemoglobin 28.1 pg (28.0-32.0); Mean Corpuscular Volume 84.2 fL (80.0-100.0); Nucleated Red Blood Cells % 0.1 %
[2025-01-07 18:35] LABS: Alanine Aminotransferase 27 U/L (7-40); Albumin 4.6 g/dL (3.2-4.8); Alkaline Phosphatase 70 U/L (46-116); Anion Gap 12 (5-15); BUN/Creatinine Ratio 11.4 (10.0-20.0); Bilirubin, Total 0.7 mg/dL (0.2-1.0); Blood Urea Nitrogen 17 mg/dL (9-23); Calcium 9.1 mg/dL (8.7-10.4); Carbon Dioxide 21 mmol/L (20-31); Glucose 105 mg/dL (74-106); Magnesium 2.1 mg/dL (1.6-2.6); Potassium 4.4 mmol/L (3.5-5.1); Sodium 143 mmol/L (136-145); Total Protein 7.1 g/dL (5.7-8.2)
[2025-01-07 18:47] LABS: Chloride 110 mmol/L (98-107)
[2025-01-07 20:00] VITALS: PULSE 71
[2025-01-07 21:00] VITALS: BP 123/71; PULSE 69; RESP 18; TEMP 97.7; O2SAT 96
[2025-01-07] MEDS: SODIUM CHLOR 0.9% PF (SALINE LOCK) 10ML VIAL/SYR IV SCH (22:51)
--- NOTE | 2025-01-07 23:54 | DVHINCON2 ---
Date Seen: Jan 07, 2025 Referring Physician MD Feliciano Reason for Consultation A fib History of Present Illness This is a 74-year-old male with a PMH of coronary artery disease status post PTCA X 1 JARRETT (on Plavix), congestive heart failure, atrial fibrillation (on Eliquis), hypertension, dyslipidemia, and BPH who presented to his primary care physician's office for a routine follow up. While in the office, the patient underwent a twelve lead electrocardiogram which revealed atrial fibrillation with rapid ventricular response. The patient denies any symptoms such as chest pain, palpitations, or shortness of breath. The patient was directly admitted to the hospital for further evaluation. Cardiology has been consulted for atrial fibrillation. At the time of assessment, the patient is not connected to any cardiac monitors. No blood work available at time of assessment. The patient recently underwent a coronary angiogram with left heart catheterization on 12/25/2024 in which no catheter based intervention was needed at that time. Of note, the patient reports that he has been off of his Eliquis and Plavix therapy for approximately one month pending an upcoming colonoscopy. Past Medical History Past medical history reviewed. No other significant than mentioned above. Past Surgical History Multiple hernia repairs Family History: Family history: Cardiovascular disease G8 FATHER Family history: Diabetes mellitus G8 FATHER Family history: Hypertension G8 FATHER Allergies: Coded Allergies: Cefuroxime (Verified Allergy, Severe, 12/20/24) Amiodarone (Verified Allergy, Unknown, SWELLING, RASH, 12/20/24) Uncoded Allergies: CEFTON (Allergy, Severe, 07/01/14) Home Meds Reported Medications Cyanocobalamin (B-12) 250 Mcg Tab, 1 TAB PO DAILY for SUPPLEMENT 12/25/24 Cholecalciferol (Vitamin D3) 2,000 Unit Cap, 1 CAP PO DAILY for SUPPLEMENT 12/25/24 Folic Acid (Folic Acid) 1 Mg Tab, 1 TAB PO BID for SUPPLEMENT 12/20/24 Ferrous Sulfate (Ferrous Sulfate) 325 Mg Tab, 1 TAB PO BIDWM for ANEMIA 12/20/24 Metoprolol Succinate (Metoprolol Succinate Er) 50 Mg Tab, 1 TAB PO QAM for HYPERTENSION 06/30/24 Multiple Vitamins W/ Minerals (SENTRY SENIOR) Senior Tab, 1 TAB PO 3X/WEEK for SUPPLEMENT 02/21/24 Tocopheryl Acetate, Dl-Alpha (Vitamin E) 180 Mg Cap, 1 CAP PO 4X/WEEK for SUPPLEMENT 02/21/24 Ascorbic Acid (VITAMIN C TABLET) 500 Mg Tb, 1 TAB PO 4X/WEEK for SUPPLEMENT 02/21/24 Apixaban Base (ELIQUIS) 5 Mg Tab, 1 TAB PO BID for ATRIAL FIBRILLATION 02/19/24 Hydralazine Hcl (Hydralazine Hcl) 25 Mg Tab, 1 TAB PO BID for HYPERTENSION 02/19/24 Isosorbide Mononitrate (Isosorbide Mononitrate Er) 30 Mg Tab, 1 TAB PO QAM for ANGINA 02/19/24 Lisinopril (Lisinopril) 10 Mg Tab, 1 TAB PO QAM for HYPERTENSION 02/19/24 Atorvastatin Calcium (ATORVASTATIN CALCIUM) 20 Mg Tab, 1 TAB PO QPM for HIGH CHOLESTEROL 02/10/20 Clopidogrel Bisulfate (CLOPIDOGREL) 75 Mg Tab, 1 TAB PO DAILY for CARDIAC STENTS 02/10/20 Spironolactone (Spironolactone) 25 Mg Tab, 0.5 TAB PO DAILY for FLUID RETENTION 02/10/20 Current Medications Current Medications Medications (Trade) Dose Ordered Sig/Obdulio Route PRN Reason Start Time Stop Time Status Last Admin Sodium Chloride (Saline Lock Ns) 10 ml Q8HR IV 01/07/25 22:00 01/07/25 22:51 Lorazepam (Ativan Tablet) 0.5 mg Q6HP PRN PO ANXIETY 01/07/25 16:45 Al Hydrox/Mg Hydrox/Simethicone (Maalox Plus) 30 ml Q6HP PRN PO FOR STOMACH DISTRESS 01/07/25 16:45 Acetaminophen (Tylenol Tablet) 650 mg Q6HP PRN PO PAIN SCALE 1-3 OR TEMP>100.4 01/07/25 16:45 Acetaminophen/ Hydrocodone Bitart ([place] 5/325MG Tab) 1 tab Q4HP PRN PO MODERATE PAIN (4-6 PAIN SCALE) 01/07/25 16:45 Ondansetron HCl (Zofran) 4 mg Q4HP PRN IV NAUSEA / VOMITING 01/07/25 16:45 Nitroglycerin (Ntrostat Sublingual) 0.4 mg Q5MINP PRN SL FOR CHEST PAIN 01/07/25 16:45 Morphine Sulfate 2 mg Q30M PRN IV FOR CHEST PAIN 01/07/25 16:45 Metoprolol Succinate (Toprol Xl) 50 mg DAILY PO 01/08/25 10:00 Review of Systems Constitutional: No symptom reported Ears, Nose, & Throat: No symptom reported Eyes: No symptom reported Neurological: No symptoms reported Pulmonary/Respiratory: No symptoms reported Cardiovascular: No symptom reported Gastrointestinal: No symptom reported Genitourinary: No symptom reported Musculoskeletal: No symptom reported Skin: No symptom reported Psychiatric: No symptom reported Endocrine: No symptom reported Hematologic/Lymphatic: No symptom reported Vital Signs Vital Signs Date Time Temp Pulse Resp B/P (MAP) Pulse Ox O2 Delivery O2 Flow Rate FiO2 01/07/25 21:00 97.7 69 18 123/71 (88) 96 97.7 01/07/25 20:00 Room Air* 0 21 Physical Exam GENERAL: Alert and oriented x 3. No acute distress. EYES: PERRL, EOMI. Anicteric. HENT: Moist mucous membranes. LUNGS: Clear to auscultation bilaterally. CARDIOVASCULAR: Regular rate and rhythm. ABDOMEN: Soft, non-tender and non-distended. EXTREMITIES: No edema. NEUROLOGIC: No focal neurological deficits. SKIN: Warm, dry. Labs/Diagnostic Data Labs Test 01/07/25 19:19 01/07/25 17:49 Range/Units D-Dimer, Quantitative 0.42 0.0-0.49 mg/L FEU White Blood Count 8.0 4.4-10.8 10^3/uL Red Blood Count 5.77 4.5-5.90 10^6/uL Hemoglobin 16.2 13.5-17.5 g/dL Hematocrit 48.6 41.0-53.0 % Mean Corpuscular Volume 84.2 80.0-100.0 fL Mean Corpuscular Hemoglobin 28.1 28.0-32.0 pg Mean Corpuscular Hemoglobin Concent 33.4 32.0-36.0 g/dL Red Cell Distribution Width 22.4 H 11.8-14.3 % Platelet Count 185 140-450 10^3/uL Mean Platelet Volume 8.6 6.9-10.8 fL Neutrophils (%) (Auto) 76.1 37.0-80.0 % Lymphocytes (%) (Auto) 16.3 10.0-50.0 % Monocytes (%) (Auto) 7.0 0.0-12.0 % Eosinophils (%) (Auto) 0.2 0.0-7.0 % Basophils (%) (Auto) 0.4 0.0-2.0 % Neutrophils # (Auto) 6.1 1.6-8.6 10 ^3/uL Lymphocytes # (Auto) 1.3 0.4-5.4 10 ^3/uL Monocytes # (Auto) 0.6 0-1.3 10 ^3/uL Eosinophils # (Auto) 0 0-0.8 10 ^3/uL Basophils # (Auto) 0 0-0.2 10 ^3/uL Nucleated Red Blood Cells 0.1 % Sodium Level 143 136-145 mmol/L Potassium Level 4.4 3.5-5.1 mmol/L Chloride Level 110 H 98-107 mmol/L Carbon Dioxide Level 21 20-31 mmol/L Anion Gap 12 5-15 Blood Urea Nitrogen 17 9-23 mg/dL Creatinine 1.49 H 0.700-1.30 mg/dL Glomerular Filtration Rate Calc 48 >90 mL/min BUN/Creatinine Ratio 11.4 10.0-20.0 Serum Glucose 105 74-106 mg/dL Calcium Level 9.1 8.7-10.4 mg/dL Magnesium Level 2.1 1.6-2.6 mg/dL Total Bilirubin 0.7 0.2-1.0 mg/dL Aspartate Amino Transferase (AST) 22 13-40 U/L Alanine Aminotransferase (ALT) 27 7-40 U/L Alkaline Phosphatase 70 46-116 U/L Total Protein 7.1 5.7-8.2 g/dL Albumin 4.6 3.2-4.8 g/dL Thyroid Stimulating Hormone (TSH) 0.98 0.55-4.78 uIU/mL Free Thyroxine (T4) Calculated 1.05 0.89-1.76 ng/dL Assessment Atrial fibrillation with rapid ventricular response, now normal sinus rhythm (on Eliquis). Coronary artery disease status post PTCA x 1 JARRETT (on Plavix). Chronic HFrEF, NYHA class II. Hypertension. Dyslipidemia. BPH. Plan/Recommendation I agree with your ongoing assessment and care of plan. Patient has been seen by Janie Quezada NP on my behalf. We have discussed the plan with the patient. Patient seen and examined at bedside. We will proceed with obtaining a transthoracic echocardiogram to evaluate cardiac function. The patient recently underwent a coronary angiogram with left heart catheterization in which ventriculography found an EF of approximately 40% with global hypokinesis. We will recommend to continue guideline directed medical therapy for CHF as usman erated and as renal function permits (currently awaiting blood work). [id number] VASc score: 5 points, HAS-BLED score: 2 points. Consider initiating therapeutic Lovenox if the patient has a stable hemoglobin and hematocrit level. The patient will also benefit from NOAC therapy upon discharge. After patient was taken to telemetry, a repeat 12 lead electrocardiogram was done and reveals the patient is now in normal sinus rhythm. Initiate home dose beta-ap. Monitor and replete electrolytes as needed, keep potassium greater than four and magnesium greater than two. Obtain labs: CBC, BMP, Magnesium, D-dimer and TSH. Further recommendations per clinical course and progression and pending lab results. Additional plan as per the hospital course. Plan discussed with: Patient NYHA Physical activity limitations: Class2(Slight)fatigue,sob Date of Service: Jan 07, 2025 Billing Provider: EDUARDO ESCAMILLA MD Cardiology Common Codes: 32768-MRGNWAS INP/OBS CARE (High) Cardiology Consultation Codes: 34998-[id number] CONSULT <45MIN EDUARDO ESCAMILLA MD Jan 07, 2025 23:54
[2025-01-08 00:29] VITALS: BP 127/62; PULSE 61; RESP 17; TEMP 97.6; O2SAT 97
[2025-01-08 04:42] VITALS: BP 133/67; PULSE 60; RESP 18; TEMP 97.9; O2SAT 95
[2025-01-08 08:00] VITALS: PULSE 55; PULSE 77; RESP 18
[2025-01-08 09:00] VITALS: BP 148/76; PULSE 64; RESP 18; TEMP 99; O2SAT 97
[2025-01-08] MEDS: METOPROLOL SUCCINATE XL 50 MG TAB PO SCH (09:11)
--- NOTE | 2025-01-08 10:55 | DVHHP2 ---
History of Present Illness Reason for Visit: A Fibb History of Present Illness This is a 74-year-old male patient who presented to the clinic office for a routine follow up. While in the office, the patient underwent a twelve lead electrocardiogram which revealed atrial fibrillation with rapid ventricular response. The patient denies any symptoms such as chest pain, palpitations, or shortness of breath. The patient was directly admitted to the hospital for further evaluation. Cardiology has been consulted for atrial fibrillation. At the time of assessment, the patient is not connected to any cardiac monitors. No blood work available at time of assessment. Significant past medical history includes coronary artery disease status post PTCA X 1 JARRETT (on Plavix), congestive heart failure, atrial fibrillation (on Eliquis), hypertension, dyslipidemia, and BPH. The patient recently underwent a coronary angiogram with left heart catheterization on 12/25/2024 in which no catheter based intervention was needed at that time. Of note, the patient reports that he has been off of his Eliquis and Plavix therapy for approximately one month pending an upcoming colonoscopy. Review of Systems Constitutional: No: Fever, Chills, Sweats, Weakness, Malaise, Other Eyes: No: Pain, Vision change, Conjunctivae inflammation, Eyelid inflammation, Other, Redness ENT: No: Ear pain, Ear discharge, Nose pain, Nose discharge, Nose congestion, Mouth pain, Mouth swelling, Throat pain, Throat swelling, Other Respiratory: No: Cough, Dry, Shortness of breath, SOB with excertion, Wheezing, Hemoptysis, Pleuritic Pain, Sputum, Wheezing, Other Cardiovascular: Palpitations Gastrointestinal: No: Nausea, Vomiting, Abdominal Pain, Diarrhea, Constipation, Melena, Hematochezia, Other Genitourinary: No Dysuria, No Frequency, No Incontinence, No Hematuria, No Retention, No Other Musculoskeletal: No: other, neck pain, shoulder pain, arm pain, back pain, hand pain, leg pain, foot pain Skin: No: Rash, Lesions, Jaundice, Bruising, Other Neurological: No: Weakness, Numbness, Incoordination, Change in speech, Confusion, Seizures, Other Allergies: Coded Allergies: Cefuroxime (Verified Allergy, Severe, 12/20/24) Amiodarone (Verified Allergy, Unknown, SWELLING, RASH, 12/20/24) Uncoded Allergies: CEFTON (Allergy, Severe, 07/01/14) Medications Current Medications Medications Dose Ordered Sig/Obdulio Route Start Time Stop Time Status Last Admin Dose Admin Sodium Chloride 10 ml Q8HR IV 01/07/25 22:00 01/08/25 06:00 10 ML Lorazepam 0.5 mg Q6HP PRN PO 01/07/25 16:45 Al Hydrox/Mg Hydrox/Simethicone 30 ml Q6HP PRN PO 01/07/25 16:45 Acetaminophen 650 mg Q6HP PRN PO 01/07/25 16:45 Acetaminophen/ Hydrocodone Bitart 1 tab Q4HP PRN PO 01/07/25 16:45 Ondansetron HCl 4 mg Q4HP PRN IV 01/07/25 16:45 Nitroglycerin 0.4 mg Q5MINP PRN SL 01/07/25 16:45 Morphine Sulfate 2 mg Q30M PRN IV 01/07/25 16:45 Metoprolol Succinate 50 mg DAILY PO 01/08/25 10:00 01/08/25 09:11 50 MG Enoxaparin Sodium 70 mg Q12HR SC 01/08/25 10:45 UNV Exam Vital Signs Vital Signs Date Time Temp Pulse Resp B/P (MAP) Pulse Ox O2 Delivery O2 Flow Rate FiO2 01/08/25 09:11 97 138/77 01/08/25 09:00 99.0 18 97 99.0 01/08/25 08:00 Room Air* 0 21 General Appearance: Alert, Oriented X3, Cooperative, No acute distress Respiratory: Clear to auscultation Cardiovascular: Other (Irregular, Tachycardic) Abdominal: Normal bowel sounds, Soft Psych/Mental Status: Mental status NL Labs/Xrays Labs Test 01/07/25 19:19 01/07/25 17:49 Range/Units D-Dimer, Quantitative 0.42 0.0-0.49 mg/L FEU White Blood Count 8.0 4.4-10.8 10^3/uL Red Blood Count 5.77 4.5-5.90 10^6/uL Hemoglobin 16.2 13.5-17.5 g/dL Hematocrit 48.6 41.0-53.0 % Mean Corpuscular Volume 84.2 80.0-100.0 fL Mean Corpuscular Hemoglobin 28.1 28.0-32.0 pg Mean Corpuscular Hemoglobin Concent 33.4 32.0-36.0 g/dL Red Cell Distribution Width 22.4 H 11.8-14.3 % Platelet Count 185 140-450 10^3/uL Mean Platelet Volume 8.6 6.9-10.8 fL Neutrophils (%) (Auto) 76.1 37.0-80.0 % Lymphocytes (%) (Auto) 16.3 10.0-50.0 % Monocytes (%) (Auto) 7.0 0.0-12.0 % Eosinophils (%) (Auto) 0.2 0.0-7.0 % Basophils (%) (Auto) 0.4 0.0-2.0 % Neutrophils # (Auto) 6.1 1.6-8.6 10 ^3/uL Lymphocytes # (Auto) 1.3 0.4-5.4 10 ^3/uL Monocytes # (Auto) 0.6 0-1.3 10 ^3/uL Eosinophils # (Auto) 0 0-0.8 10 ^3/uL Basophils # (Auto) 0 0-0.2 10 ^3/uL Nucleated Red Blood Cells 0.1 % Sodium Level 143 136-145 mmol/L Potassium Level 4.4 3.5-5.1 mmol/L Chloride Level 110 H 98-107 mmol/L Carbon Dioxide Level 21 20-31 mmol/L Anion Gap 12 5-15 Blood Urea Nitrogen 17 9-23 mg/dL Creatinine 1.49 H 0.700-1.30 mg/dL Glomerular Filtration Rate Calc 48 >90 mL/min BUN/Creatinine Ratio 11.4 10.0-20.0 Serum Glucose 105 74-106 mg/dL Calcium Level 9.1 8.7-10.4 mg/dL Magnesium Level 2.1 1.6-2.6 mg/dL Total Bilirubin 0.7 0.2-1.0 mg/dL Aspartate Amino Transferase (AST) 22 13-40 U/L Alanine Aminotransferase (ALT) 27 7-40 U/L Alkaline Phosphatase 70 46-116 U/L Total Protein 7.1 5.7-8.2 g/dL Albumin 4.6 3.2-4.8 g/dL Thyroid Stimulating Hormone (TSH) 0.98 0.55-4.78 uIU/mL Free Thyroxine (T4) Calculated 1.05 0.89-1.76 ng/dL SEPSIS Sepsis Screen Physician Orders Enoxaparin Sodium (Lovenox) (01/08/25 10:45) Vital Signs Date Time Temp Pulse Resp B/P (MAP) Pulse Ox O2 Delivery O2 Flow Rate FiO2 01/08/25 09:11 97 138/77 01/08/25 09:00 99.0 64 18 148/76 (100) 97 99.0 01/08/25 08:00 77 18 Room Air* 0 21 01/08/25 04:42 97.9 60 18 133/67 (89) 95 97.9 Medications Medications Dose Ordered Sig/Obdulio Route Start Time Stop Time Status Last Admin Dose Admin Metoprolol Succinate 50 mg DAILY PO 01/08/25 10:00 01/08/25 09:11 50 MG Assessment/Plan Assessment/Plan # A Fibb with RVR - Cardio Reccs - Allergic to Amio - Cont Beta blockers # Chronic Systolic CHF - EF 40% # Ischemic Cardiomyopathy - Cont Meds # CKD3b - Monitor # Goals of care FULL CODE Plan discussed with: Patient My Orders Orders - MARCELO BENNETT MD Procedure Category Date Status Time Urinalysis LAB 01/07/25 Logged 16:39 Admit ADMIT 01/07/25 Transmitted 16:41 Code Status CODE 01/07/25 Transmitted 16:41 Vital Signs LEENA 01/07/25 In Process 16:41 Review Orders With LEENA 01/07/25 In Process Adm. 16:41 Regular Diet DIET 01/07/25 Transmitted Dinner Sodium Chloride Lock PHA 01/07/25 In Process (Saline Lock Ns) 22:00 Lorazepam Tablet PHA 01/07/25 In Process (Ativan Tablet) 16:45 Alum & Mag PHA 01/07/25 In Process Hydrox-Simethicone 16:45 Acetaminophen Tablet PHA 01/07/25 In Process (Tylenol Tablet) 16:45 Notify Of Changes LEENA 01/07/25 In Process From Base 16:41 Advance Directive LEENA 01/07/25 In Process 16:41 Patient Condition ORDERS 01/07/25 Transmitted 16:41 Allergies LEENA 01/07/25 In Process 16:41 Hydrocodone-Acet PHA 01/07/25 In Process 5/325mg Tab ([place] 16:45 Ondansetron Hcl PHA 01/07/25 In Process (Zofran) 16:45 Nitroglycerin PHA 01/07/25 In Process Sublingual (Ntrostat 16:45 Morphine Sulfate PHA 01/07/25 In Process Injection 16:45 Stat Ekg For Chest LEENA 01/07/25 In Process Pain 16:41 Notify Of Changes [facility] 01/07/25 In Process From Base 16:41 Data Modeling Specialist For LEENA 01/07/25 In Process 24 Hours 16:41 Emergency Dysrhythmia [facility] 01/07/25 In Process Protocol 16:41 Rhythm Strips Once [facility] 01/07/25 In Process Every Shift 16:41 Oxygen By Nasal RT 01/07/25 Transmitted Cannula 16:41 Pharmacy To Reconcile ORDERS 01/07/25 Transmitted Home Med 16:44 * Cardiology Consult CONS 01/07/25 Transmitted 16:44 Communication Order ORDERS 01/07/25 Transmitted 18:08 Echo 2d Mode Cardiac US 01/08/25 Logged DOP 16:41 Date of Service: Jan 07, 2025 Billing Provider: MARCELO BENNETT MD Common Visit Codes: 21111-[id number] INP/OBS CARE (HIGH) Secondary Visit Codes: 77854-[id number] CARE PLAN 30 MINUTES MARCELO BENNETT MD Jan 08, 2025 10:55
[2025-01-08] MEDS: ENOXAPARIN SOD 100 MG/1 ML SYRINGE SC SCH (12:17)
[2025-01-08 13:00] VITALS: BP 142/73; PULSE 66; RESP 18; TEMP 98.1; O2SAT 98
--- NOTE | 2025-01-08 14:28 | DVHDS2 ---
Physician Discharge Progress N Final Diagnosis: # A Fibb with RVR - Cardio Reccs - Allergic to Amio - Cont Beta blockers # Chronic Systolic CHF - EF 40% # Ischemic Cardiomyopathy - Cont Meds # CKD3b - Monitor # Goals of care FULL CODE Condition on Discharge: Poor Disposition: Home Discharge Instructions: Diet: Cardiac 2g Na,low cholest (2 gm sodium, low cholesterol) Activity: Light activity Medications: DC Hydralazine and Lisinopril Follow Up Care: Discharge Statement: "Patient was advised to return to the ER or call 911 if any headaches, dizziness , shortness of breath, chest pain, abdominal pain, bleeding, fevers, or worsening of medical condition. Patient was counseled about treatment plan, medications, possible side effects, patientverbalized understanding. All questions were answered to the best of my ability. This discharge took greater then 30 minutes in planning, reviewing documentation, counseling the patient, and discussing with other team members." MARCELO BENNETT MD Jan 08, 2025 14:28
[2025-01-08 17:00] VITALS: BP 138/67; PULSE 63; RESP 18; TEMP 97.9; O2SAT 98
--- NOTE | 2025-01-08 23:17 | DVHPN2 ---
Progress Note - Dictate Date Seen: Jan 08, 2025 Medical Necessity Reason Pt with a Central, PICC or Fol: No Subjective Patient was seen and evaluated in follow up. Patient has no new complaints at this time. Echocardiogram is pending. Patient to follow up with cardiology outpatient. Telemetry reviewed. vital signs Vital Sign Date Time Temp Pulse Resp B/P (MAP) Pulse Ox O2 Delivery O2 Flow Rate FiO2 01/08/25 17:00 97.9 63 18 138/67 (90) 98 97.9 01/08/25 08:00 Room Air* 0 21 Total Intake and Output 01/07/25 01/07/25 01/08/25 15:00 23:00 07:00 Intake Total 400 ml Balance 400 ml objective GENERAL: Alert and oriented x 3. No acute distress. EYES: PERRL, EOMI. Anicteric. HENT: Moist mucous membranes. LUNGS: Clear to auscultation bilaterally. CARDIOVASCULAR: Regular rate and rhythm. ABDOMEN: Soft, non-tender and non-distended. EXTREMITIES: No edema. NEUROLOGIC: No focal neurological deficits. SKIN: Warm, dry. laboratory and microbiology Laboratory Tests 01/07/25 17:49 Test 01/07/25 17:49 Range/Units Serum Glucose 105 74-106 mg/dL Problem List Atrial fibrillation with rapid ventricular response, now normal sinus rhythm (on Eliquis). Coronary artery disease status post PTCA x 1 JARRETT (on Plavix). Chronic HFrEF, NYHA class II. Hypertension. Dyslipidemia. BPH. Assessment/Plan Continued all current supportive medical care. DVT prophylactics. Metoprolol. Nitro SL. Morphine and [place] for pain management. Additional plan as per the hospital course. Plan discussed with: Patient EDUARDO ESCAMILLA MD Jan 08, 2025 22:16
--- NOTE | 2025-01-09 08:42 | ECG ---
[facility] Test Date: 2025-01-07 Test Time: 17:41:57 Pat Name: BARI ROSAS Department: Room: 0287T A Gender: M Stem Maker: SARAVANAN : 1950 Requested By: MARCELO BENNETT Order Number: [id number] Reading MD: Alexsander Dee Measurements Intervals [place] Rate: 83 P: 12 CA: 175 QRS: -23 QRSD: 104 T: 75 QT: 389 QTc: 457 Interpretive Statements Sinus rhythm Borderline left axis deviation Abnormal R-wave progression, late transition Electronically Signed On 01-13-2025 22:11:50 PDT by Alexsander Dee Please click the below link to view image of tracing.
--- NOTE | 2025-01-09 08:43 | ECG ---
[facility] Test Date: 2025-01-08 Test Time: 11:24:26 Pat Name: BARI ROSAS Department: Room: 0287T A Gender: M Writer Editor: KK : 1950 Requested By: MARCELO BENNETT Order Number: [id number] Reading MD: Alexsander Dee Measurements Intervals [place] Rate: 62 P: -2 SD: 161 QRS: -21 QRSD: 112 T: 34 QT: 450 QTc: 457 Interpretive Statements Sinus rhythm Incomplete left bundle branch block Left ventricular hypertrophy Electronically Signed On 01-13-2025 22:13:25 PDT by Alexsander Dee Please click the below link to view image of tracing.
--- NOTE | 2025-01-11 00:45 | DVHSR ---
APPROVED REPORT EXAM: Two-dimensional and M-mode echocardiogram with Doppler and color Doppler. Blood Pressure: 133/67 mmHg INDICATION AFIB RISK FACTORS Height: 5'10, Weight: 163 DIMENSIONS LVDd5.7 (3.8-5.7cm)LA (2D)4.0 (1.9-4.0cm)Aortic Root3.4 (2.0-3.7cm) LVDs5.0 (2.5-4.0cm)LA (MM) (1.9-4.0cm)Aortic Cusp Exc1.7 (1.5-2.0cm) EF (%) 40.0 (55-70%)Rt. Atrium2.8 (1.9-4.0cm)Asc. Aorta3.9 cm IVSd0.8 (0.7-1.1cm)RV (D)2.6 (1.8-2.4cm) PWd0.7 (0.7-1.1cm) Mitral Valve MitralMitral Stenosis E wave0.68m/sMV Mean GR.mmHg A wavem/sMV Peak GR.75mmHg E/A ratio0.02D MVAcm2 DECEL [id number] 1/2 Tim[place] Aortic Valve Aortic ValveAortic Stenosis V10.63m/Alda Mean GR.4mmHg V21.22m/Alda Peak GR.6mmHg LVOT Diameter2.4 (1.8-2.4cm)Doppler AVA2.33cm2 AI P 1/2 Ytqt940.20ms Pulmonic Valve V20.71m/s Tricuspid Valve TR Velocity2.43m/s [id number] Other Information Quality : TDSRhythm : Technically limited study due to body habitus. Conclusion DYSKINESIS OF IVS MODERATELY DILATED LV LV EF IS 40% AND IS REDUCED MODERATE DEGREE AORTIC REGURGITATION NORMAL VALVES NO EFFUSION RVSP IS NORMAL
== END 2025-01-08 18:50 | disposition home or self-care (01) ==
LOC: WEST WING 15:14 → OVERFLOW 15:14 → UNDOADMIN 15:14 → INTOOBSV 15:14 → TELE-WESTW 17:31
PROVIDERS: ADMIT Hospitalist; ATTEND Hospitalist
DX: I48.20 Chronic atrial fibrillation, unspecified (principal); I13.0 Hypertensive heart and chronic kidney disease with heart failure and stage 1 through stage 4 chronic kidney disease, or unspecified chronic kidney disease; I50.22 Chronic systolic (congestive) heart failure; I25.5 Ischemic cardiomyopathy; E78.5 Hyperlipidemia, unspecified; I25.10 Atherosclerotic heart disease of native coronary artery without angina pectoris; N18.32 Chronic kidney disease, stage 3b; Z79.01 Long term (current) use of anticoagulants; Z98.61 Coronary angioplasty status; Z98.890 Other specified postprocedural states; Z79.899 Other long term (current) drug therapy
CPT/HCPCS: 36415; 80053; 83735; 84439; 84443; 85025; 85379; 93005; 93306; 96372; G0378; J1650

== ENCOUNTER 2025-03-22 09:35 | Day surgery (SDC) | payer OTHER ==
[2025-03-19 15:45] LABS: Hematocrit 45.4 % (41.0-53.0); Hemoglobin 15.2 g/dL (13.5-17.5); Mean Corpuscular Hemoglobin 29.7 pg (28.0-32.0); Mean Corpuscular Volume 88.7 fL (80.0-100.0); Nucleated Red Blood Cells % 0.1 %
[2025-03-19 16:02] LABS: INR 1.04 (0.9-1.15); Partial Thromboplastin Time 28.8 SEC (24.5-34.5); Prothrombin Time 11.0 sec (9.3-11.8)
[2025-03-19 16:20] LABS: Alanine Aminotransferase 18 U/L (7-40); Albumin 4.4 g/dL (3.2-4.8); Alkaline Phosphatase 80 U/L (46-116); Anion Gap 8 (5-15); BUN/Creatinine Ratio 13.9 (10.0-20.0); Blood Urea Nitrogen 17 mg/dL (9-23); Calcium 9.4 mg/dL (8.7-10.4); Carbon Dioxide 26 mmol/L (20-31); Chloride 108 mmol/L (98-107); Glucose 96 mg/dL (74-106); Potassium 4.8 mmol/L (3.5-5.1); Sodium 142 mmol/L (136-145); Total Protein 7.1 g/dL (5.7-8.2)
[2025-03-19 16:21] LABS: Bilirubin, Total 0.9 mg/dL (0.2-1.0)
[~2025-03-22] VITALS: Ht 172.7 cm; Wt 72.6 kg
[~2025-03-22 09:35] MED LIST changes: -FERR325T24 PO; -HYDR25TA88 PO; -LISI10TA34 PO
[2025-03-22] MEDS: fentaNYL CITRATE 100 MCG/2 ML VL ONE (12:45)
[2025-03-22] MEDS: MIDAZOLAM HCL 5 MG/ML-1ML VIAL ONE ×2 (12:45→13:04)
[2025-03-22 13:19] VITALS: PULSE 76; RESP 19; TEMP 98.3; O2SAT 97
--- NOTE | 2025-03-22 13:19 | DVHNC2 ---
Procedure - PROCEDURE DATE: 03/22/2025 PROCEDURE PERFORMED BY: Dennise Dawson MD REFERRING PROVIDER: Chapin Wiggins MD PROCEDURE PERFORMED: 1. COLONOSCOPY WITH MODERATE SEDATION 2. COLONOSCOPY WITH HOT SNARE POLYPECTOMY 3. COLONOSCOPY WITH COLD BIOPSY POLYPECTOMY 4. COLONOSCOPY WITH ENDOCLIP PLACEMENT PRE-PROCEDURE DIAGNOSIS: 1. BLOOD IN STOOL 2. HISTORY OF ANTICOAGULANT USE POSTPROCEDURE DIAGNOSIS: 1. NUMEROUS COLON POLYPS THROUGHOUT THE COLON 2. INTERNAL AND EXTERNAL HEMORRHOIDS 3. SEVERE LEFT-SIDED DIVERTICULOSIS INDICATIONS FOR PROCEDURE: The patient is a pleasant 74-year-old male with a history of cardiac disease on multiple anticoagulants with a positive fit test. He has no recent colonoscopy. Colonoscopy is warranted for evaluation. MEDICATIONS USED: SIX mg of Versed IV and 50 mcg of fentanyl IV DETAILS OF THE PROCEDURE: Informed consent was obtained after risks benefits and alternatives were discussed at length with the patient. The patient gave consent to the procedure as well as the medication used for sedation. The patient was placed in left lateral decubitus position. Digital rectal exam showed internal and external hemorrhoids. An Olympus adult colonoscope was inserted into the rectum and advanced to the cecum. The cecum was identified by the ileocecal valve and the appendiceal orifice. The scope was then withdrawn. [place] bowel prep score of 9 was noted. The patient had a cecal polyp measuring 3 mm removed with cold biopsy forceps. There was a 1.25 cm polyp in the ascending colon removed with hot snare with two Endoclips placed for mucosal defect. There was numerous polyps in the ascending colon removed with cold biopsy polypectomy. There was a descending colon polyp and a sigmoid colon polyp also removed with cold biopsy polypectomy. All the small polyps measured between three and 5 mm and they were completely removed. The patient had severe left-sided diverticulosis. The patient had a 1.25 cm polyp in the rectum removed with hot snare polypectomy that required Endoclip placement. Retroflexion showed internal hemorrhoids the patient tolerated the procedure well. IMPRESSION: 1. Numerous colon polyps, severe left-sided diverticulosis, internal and external hemorrhoids RECOMMENDATIONS: 1. Follow up in GI clinic for procedure and pathology results 2. High-fiber diet 3. Repeat colonoscopy in 3 years unless otherwise indicated comorbidities or symptoms 4. Follow up with primary care physician 5. Restart anticoagulation in three days 6. Caution with aspirin NSAIDs and anticoagulants in the future I WOULD LIKE TO THANK DR. WIGGINS FOR THIS REFERRAL DENNISE DAWSON MD Mar 22, 2025 13:19
[2025-03-22 13:49] VITALS: BP 144/73; PULSE 74; RESP 20; O2SAT 95
== END 2025-03-22 14:30 | disposition home or self-care (01) ==
LOC: GI 09:35
PROVIDERS: ATTEND Specialist
DX: K92.1 Melena (principal); K64.4 Residual hemorrhoidal skin tags; K64.8 Other hemorrhoids; K57.30 Diverticulosis of large intestine without perforation or abscess without bleeding; D12.0 Benign neoplasm of cecum; D12.2 Benign neoplasm of ascending colon; D12.8 Benign neoplasm of rectum; D12.5 Benign neoplasm of sigmoid colon; I13.0 Hypertensive heart and chronic kidney disease with heart failure and stage 1 through stage 4 chronic kidney disease, or unspecified chronic kidney disease; N18.30 Chronic kidney disease, stage 3 unspecified; I50.9 Heart failure, unspecified; I48.91 Unspecified atrial fibrillation; Z98.890 Other specified postprocedural states; Z79.899 Other long term (current) drug therapy; Z88.1 Allergy status to other antibiotic agents
CPT/HCPCS: 36415; 43239; 45380; 45385; 80053; 85025; 85610; 85730; 88305; J2250; J3010

== ENCOUNTER 2025-05-09 11:58 | Outpatient (CLI) | payer OTHER ==
[2025-05-09 12:43] LABS: Hematocrit 42.3 % (41.0-53.0); Hemoglobin 13.9 g/dL (13.5-17.5); Mean Corpuscular Hemoglobin 29.0 pg (28.0-32.0); Mean Corpuscular Volume 88.5 fL (80.0-100.0); Nucleated Red Blood Cells % 0.0 %
[2025-05-09 12:46] LABS: Urine Protein, UAD Negative (Negative)
[2025-05-09 13:40] LABS: Protein, Urine 7.6 mg/dL (1-14)
[2025-05-09 13:44] LABS: Alanine Aminotransferase 22 U/L (7-40); Albumin 4.3 g/dL (3.2-4.8); Alkaline Phosphatase 84 U/L (46-116); Anion Gap 9 (5-15); BUN/Creatinine Ratio 11.0 (10.0-20.0); Bilirubin, Total 0.6 mg/dL (0.2-1.0); Blood Urea Nitrogen 14 mg/dL (9-23); Calcium 9.3 mg/dL (8.7-10.4); Carbon Dioxide 27 mmol/L (20-31); Chloride 105 mmol/L (98-107); Potassium 4.5 mmol/L (3.5-5.1); Sodium 141 mmol/L (136-145); Total Protein 7.2 g/dL (5.7-8.2)
[2025-05-09 13:46] LABS: Glucose 128 mg/dL (74-106)
== END 2025-05-09 17:00 | disposition home or self-care (01) ==
LOC: LAB 11:58
PROVIDERS: ATTEND Internal Medicine
DX: E11.22 Type 2 diabetes mellitus with diabetic chronic kidney disease (principal); N18.30 Chronic kidney disease, stage 3 unspecified; E11.21 Type 2 diabetes mellitus with diabetic nephropathy; E21.3 Hyperparathyroidism, unspecified; E55.9 Vitamin D deficiency, unspecified; N39.0 Urinary tract infection, site not specified; D63.1 Anemia in chronic kidney disease; M10.9 Gout, unspecified; R80.9 Proteinuria, unspecified
CPT/HCPCS: 36415; 80053; 81001; 82306; 82570; 84156; 85025